=== PATIENT | male | born 1965 | race Caucasian/White ===

== ENCOUNTER 2019-08-08 09:57 | Emergency (ER) | payer OTHER, SELFPAY ==
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
[2019-08-08 10:15] VITALS: BP 143/111; PULSE 68; RESP 18; TEMP 36.5; O2SAT 97
[2019-08-08 10:50] VITALS: BP 131/75; PULSE 85; RESP 20; TEMP 36.6; O2SAT 98
== END 2019-08-08 10:56 | disposition home or self-care (01) ==
PROVIDERS: Emergency Provider Emergency Medicine
DX: S60.222A Contusion of left hand, initial encounter (principal); W22.8XXA Striking against or struck by other objects, initial encounter
CPT/HCPCS: 73130; 99283

== ENCOUNTER 2019-11-12 17:37 | Emergency (ER) | payer OTHER, SELFPAY ==
[2019-11-12 18:13] VITALS: BP 132/75; PULSE 79; RESP 20; TEMP 36.7; O2SAT 93
--- NOTE | 2019-11-12 18:26 | ECG_ITS ---
Measurements Intervals Gile Rate: 84 P: 34 SD: 158 QRS: 41 QRSD: 110 T: 49 QT: 410 QTc: 485 Interpretive Statements SINUS RHYTHM ATRIAL PREMATURE COMPLEX DELAYED PRECORDIAL R/S TRANSITION BORDERLINE ECG Electronically Signed On 11-12-2019 18:44:53 CDT by He Peña D.O.
[2019-11-12] MEDS: SODIUM CHLORIDE 0.9% IV 1,000 ML 999 ML IV CONT (18:35)
--- NOTE | 2019-11-12 18:39 | ED.GENADULT ---
HPI - General Adult General Chief complaint: Syncope Stated complaint: passed out, hit head Source: patient Mode of arrival: ambulatory Limitations: no limitations History of Present Illness HPI narrative: Konstantin is a 54M with a PMH of MS, HTN and HLD that presented to the ED after and episode of syncope. He was working in the barn when he cut himself. The sight of blood made him woozy so he sat down for a few minutes. However, when he got back up he stood up to fast, became lightheaded and passed out. He hit his head when he fell over. He does not believe he was out very long, maybe a minute. He had a small laceration to the back of the head but no other injuries. He had no neck pain, pain in the head away from the small laceration, no AMS, vision changes, nausea or vomiting. He also reported that he had been working all afternoon and evening in the barn and did not drink any water. In addition he has passed out from the sight of blood before. He denies any CP, SOB or activity before the syncope. Related Data Home Medications Medication Instructions Recorded Confirmed baclofen 10 mg PO DAILY 08/08/19 11/12/19 bupropion HCl 450 mg PO BID 08/08/19 11/12/19 duloxetine [Cymbalta] 60 mg PO DAILY 08/08/19 11/12/19 hydrochlorothiazide 25 mg PO DAILY 08/08/19 11/12/19 losartan 25 mg PO DAILY 08/08/19 11/12/19 multivitamin with minerals [Daily 1 tablet PO DAILY 08/08/19 11/12/19 Multivitamin-Minerals] cholecalciferol (vitamin D3) 125 mcg PO DAILY 11/12/19 11/12/19 lorazepam 0.5 mg PO TID PRN 11/12/19 11/12/19 mecobalamin (vitamin B12) 1,000 mcg PO DAILY 11/12/19 11/12/19 modafinil 100 mg PO BID 11/12/19 11/12/19 pravastatin 20 mg PO DAILY 11/12/19 11/12/19 rituximab [Rituxan] 1,000 mg IV [id number] 11/12/19 11/12/19 Allergies Allergy/AdvReac Type Severity Reaction Status Date / Time No Known Allergies Allergy Verified 11/12/19 18:21 Review of Systems Constitutional: Constitutional: Denies chills, Denies fever(s) and Denies weakness Eyes: Eyes: Reports no additional eye complaints ENT: Comments: Small head laceration Cardiovascular: Cardiovascular: Reports as per HPI Respiratory: Respiratory: Reports no additional respiratory complaints Gastrointestinal: Gastrointestinal: Reports no additional gastrointestinal complaints Genitourinary: Genitourinary: Reports no additional male genitourinary complaints Musculoskeletal: Musculoskeletal: Reports no additional musculoskeletal complaints Integumentary/Breasts: Skin/Breast: Reports system reviewed and no additional complaints, except as docu Neurologic: Reports as per HPI Psychiatric: Psychiatric: Reports no additional psychiatric complaints Endocrine: Endocrine: Reports no additional endocrine complaints Hematologic/Lymphatic: Hematologic/Lymphatic: Reports no additional hematologic/lymphatic complaints Allergic/Immunologic: Allergic/Immunologic: Reports no additional allergic/immunologic complaints [facility] Past Medical History Medical History Depression Hypertension Multiple sclerosis Muscle spasm Surgical History Surgical History History of ankle surgery bilateral x3 History of appendectomy History of carpal tunnel surgery bilateral S/P total knee arthroplasty left Tibia/fibula fracture at x3 Social History Social History Smoking packs per day: 1 Smoking cigarettes per day: 20.0 Smoking status: Current every day smoker Tobacco type: cigarettes Substance use: current Substance use type: marijuana Gender identity (if verbalized by the patient): Male Exam Const: General: no acute distress and alert Orientation/consciousness: patient oriented x3 Limitations: No altered mental status HENMT: Other: Had a small very shallow laceration on the top of his scalp that was he
[2019-11-12 18:44] LABS: Basophils Absolute Auto 0.04 K/mm3 (0.00-0.10); Basophils Percent Auto 0.3 % (0.0-1.0); Eosinophils Absolute Auto 0.06 K/mm3 (0.02-0.50); Eosinophils Percent Auto 0.5 % (1.0-6.0); Hematocrit 45.1 % (40.0-54.0); Immature Granulocyte Absolute 0.07 K/mm3 (0.00-0.00); Immature Granulocyte Percent A 0.6 % (0.0-0.0); Lymphocytes Absolute Auto 1.28 K/mm3 (1.10-4.50); Lymphocytes Percent Auto 10.4 % (18.0-42.0); Mean Corpuscular HGB Conc 33.3 g/dL (32.0-36.0); Mean Corpuscular Hemoglobin 29.5 pg (27.0-31.0); Mean Corpuscular Volume 88.8 fL (78.0-102.0); Mean Platelet Volume 9.6 fl (8.7-11.0); Monocytes Absolute Auto 0.88 K/mm3 (0.10-0.90); Monocytes Percent Auto 7.1 % (2.0-11.0); Neutrophils Percent Auto 81.1 % (50.0-70.0); Platelet Count Result 315 K/mm3 (150-420); Red Blood Count 5.08 M/mm3 (4.70-6.10); Red Cell Distribution Width 13.2 % (11.6-14.4); White Blood Count 12.4 K/mm3 (4.8-10.8)
[2019-11-12 18:57] LABS: Alanine Aminotransferase 33 U/L (16-63); Albumin Level 4.3 g/dL (3.4-5.0); Alkaline Phosphatase 108 U/L (46-116); Anion Gap 10 mmol/L (8-16); Aspartate Amino Transferase 18 U/L (15-37); Bilirubin,Total 0.4 mg/dL (0.00-1.00); Blood Urea Nitrogen 12 mg/dL (7-18); Calcium 9.1 mg/dL (8.5-10.1); Carbon Dioxide 28 mmol/L (21-32); Chloride 102 mmol/L (98-108); Estimated CRCL calculation 94 ml/min; Estimated Glomerular Filt Rate > 60; Glucose 93 mg/dL (70-99); Osmolality Calculated 289 mOsm/kg (285-295); Potassium 3.6 mmol/L (3.5-5.1); Sodium 140 mmol/L (136-145); Total Protein 7.4 g/dL (6.4-8.2)
[2019-11-12 19:36] VITALS: BP 115/62; PULSE 80
[2019-11-12 19:37] VITALS: BP 139/69; PULSE 85
[2019-11-12 19:38] VITALS: BP 139/69; BP 147/95; PULSE 85; PULSE 88
== END 2019-11-12 20:10 | disposition home or self-care (01) ==
PROVIDERS: Emergency Provider Family Medicine
DX: R55 Syncope and collapse (principal)
CPT/HCPCS: 36415; 80053; 85025; 93005; 96360; 99283; J7030

== ENCOUNTER 2020-08-16 15:54 | Emergency (ER) | payer OTHER, SELFPAY ==
--- NOTE | ~2020-08-16 | XR_ITS ---
EXAMINATION: XR forearm LT 2V, XR wrist LT 2V EXAM DATE: 08/16/2020 16:40 (accession [id number]), 08/16/2020 16:41 (accession [id number]) INDICATION: Fall, wrist and left forearm pain, history of break 10 years old. Initial encounter. TECHNIQUE: Frontal and lateral projections of the left wrist. Frontal and lateral projections left forearm. There are no prior studies for comparison. FINDINGS: There are no acute fractures or dislocations identified. There is no subcutaneous gas. Th ere may be swelling over the posterior aspect of the forearm. No evidence of elbow joint effusion. T here are no radiopaque foreign bodies. IMPRESSION: 1. Left wrist, forearm exam without acute osseous findings. Reviewed, dictated and finalized at location A. IMPRESSION: 1. Left wrist, forearm exam without acute osseous findings.
[2020-08-16 16:05] VITALS: BP 138/88; PULSE 107; RESP 17; TEMP 37.2; O2SAT 96
[2020-08-16] MEDS: KETOROLAC (*BKC) 60 MG/2 ML VIAL IM (16:38)
--- NOTE | 2020-08-16 16:58 | ED.EXTPRO ---
HPI - Extremity Problem General Chief complaint: Extremity Problem,Nontraumatic Stated complaint: L Arm pain Source: patient Mode of arrival: ambulatory Limitations: no limitations History of Present Illness HPI Narrative: this 55-year-old gentleman presents after he was working on his wheel cleaner and tripped and fell on his outstretched left wrist and arm causing pain with some mild swelling with decreased range of motion in his wrist with radiation into his mid left forearm with no numbness or tingling in his fingers able to move his fingers and has a strong brisk radial pulse on the left, pain rates as 6/10. Complaint: extremity pain Onset (ago): hour(s) Pain Consistency: constant Location: left Severity scale (1-10): 6 Quality: aching Radiation: distal Relieving factors: immobilization Exacerbating factors: range of motion Associated symptoms: denies other symptoms Related Data Home Medications Medication Instructions Recorded Confirmed bupropion HCl 450 mg PO BID 08/08/19 08/16/20 duloxetine [Cymbalta] 60 mg PO DAILY 08/08/19 08/16/20 hydrochlorothiazide 25 mg PO DAILY 08/08/19 08/16/20 losartan 25 mg PO DAILY 08/08/19 08/16/20 cholecalciferol (vitamin D3) 125 mcg PO DAILY 11/12/19 08/16/20 lorazepam 0.5 mg PO TID PRN 11/12/19 08/16/20 mecobalamin (vitamin B12) 1,000 mcg PO DAILY 11/12/19 08/16/20 modafinil 100 mg PO BID 11/12/19 08/16/20 pravastatin 20 mg PO DAILY 11/12/19 08/16/20 rituximab [Rituxan] 1,000 mg IV [id number] 11/12/19 08/16/20 gabapentin 300 mg PO TID 08/16/20 08/16/20 Allergies Allergy/AdvReac Type Severity Reaction Status Date / Time No Known Allergies Allergy Verified 11/19/19 08:09 Review of Systems Review of Systems: All systems reviewed & are unremarkable except as noted in HPI and below PMFSH Past Medical History Medical History Depression Hypertension Multiple sclerosis Muscle spasm Surgical History Surgical History History of ankle surgery bilateral x3 History of appendectomy History of carpal tunnel surgery bilateral S/P total knee arthroplasty left Tibia/fibula fracture at x3 Family History Family History Father Family history of heart disease in male family member before age 55 Other Cerebrovascular accident Diabetes mellitus Family history of arthritis Family history of cardiovascular disease Family history of kidney disease Family history of malignant neoplasm Social History Social History Smoking packs per day: 1 Smoking cigarettes per day: 20.0 Smoking status: Current every day smoker Tobacco type: cigarettes Alcohol intake: current Substance use: current Substance use type: marijuana Gender identity (if verbalized by the patient): Male Exam Const: General: no acute distress Orientation/consciousness: patient oriented x3 HENMT: Head: normal to inspection and contusion Eyes: Conjunctivae: conjunctivae normal Pupils: Equal, round and reactive pupils present Chest: Chest palpation & inspection: normal inspection of the chest Resp: Effort & Inspection: normal respiratory effort Auscultation: clear to auscultation bilaterally Cardio: Rate: regular rate Rhythm: regular rhythm GI: GI Palp: Yes Soft to palpation Back/Spine/Pelvis: Back: no CVA tenderness Neuro: General: patient oriented x3 and moves all extremities Extrem: Other: Pain in his left wrist and forearm with mild swelling and decreased range of motion secondary to pain Psych: Mental Status: mental status grossly normal Affect: normal affect Course Course Emergency Course: x-rays reviewed with patient pain leave level has improved with Toradol and will apply Willi wrap. Vital Signs Vital signs: Vital Signs Temperature 37.2 C
[2020-08-16 17:10] VITALS: RESP 17
== END 2020-08-16 17:10 | disposition home or self-care (01) ==
PROVIDERS: Emergency Provider Emergency Medicine
DX: S63.502A Unspecified sprain of left wrist, initial encounter (principal); W22.8XXA Striking against or struck by other objects, initial encounter
CPT/HCPCS: 73090; 73100; 96372; 99283; J1885

== ENCOUNTER 2022-10-10 00:03 | Emergency (ER) | payer OTHER, SELFPAY ==
--- NOTE | ~2022-10-10 | CT_ITS ---
CT of the Abdomen and Pelvis: Indication: Abdominal pain Technique: 2.5 mm axial scans were obtained through the abdomen and pelvis following intravenous adm inistration of 100 cc of Omnipaque 350. Dose reduction technique was used on this scan by utilizing a utomated exposure control and iterative reconstruction technique. The dose-length product (DLP) was 1 375.21 mGy-cm. COMPARISON: 05/13/2015 Findings: Scans through the lung bases are unremarkable. The liver, spleen, pancreas, gallbladder, adrenals and left kidney are within normal limits. There ar e atherosclerotic calcifications of the aorta. There is a 4 mm stone in the distal right ureter, wit h minimal right hydroureteronephrosis. Additional punctate nonobstructing right renal stone present. No lymphadenopathy. No bowel obstruction or bowel wall thickening. There is no evidence to suggest acute appendicitis. Images through the pelvis were performed. Urinary bladder unremarkable. Prostate gland and seminal ve sicles are unremarkable. No ascites. Impression: 4 mm distal right ureteral stone with minimal right hydroureteronephrosis. Additional punctate nonobstructing right renal stone. Reviewed, dictated and finalized at location M. Impression: 4 mm distal right ureteral stone with minimal right hydroureteronephrosis. Additional punctate nonobstructing right renal stone.
[2022-10-10 00:06] VITALS: BP 140/89; PULSE 90; RESP 20; TEMP 36.6; O2SAT 98
[2022-10-10] MEDS: ONDANSETRON INJ 4 MG/2 ML VIAL IV PUSH (00:10)
[2022-10-10] MEDS: fentaNYL CITRATE INJ (*CRX) 100 MCG/2 ML VIAL IV PUSH (00:10)
[2022-10-10] MEDS: SODIUM CHLORIDE 0.9% IV 1,000 ML 250 ML IV CONT (00:10)
--- NOTE | 2022-10-10 00:13 | ED.MALEGU ---
HPI - Male Genitourinary General Chief complaint: Unspecified Stated complaint: Kidney Stones Source: patient Mode of arrival: ambulatory Limitations: no limitations History of Present Illness HPI Narrative: 57 year old male presents to the Emergency Department complaining of possible kidney stone. States he has had one kidney stone in the past, which was several years ago, and feel same. States began a week ago with root beer urine. States cleared up, but has been intermittent. Has had again today and now right lower flank pain. Vomiting. Onset (ago): week(s) (1) Duration: intermittent Location: right flank Severity: moderate Relieving factors: none Exacerbating factors: none Associated symptoms: Reports blood in urine and nausea/vomiting Related Data Home Medications Medication Instructions Recorded Confirmed bupropion HCl 450 mg 24 hr tablet, 450 mg PO BID 08/08/19 08/16/20 extended release duloxetine 30 mg capsule,delayed 60 mg PO DAILY 08/08/19 08/16/20 release (Cymbalta) hydrochlorothiazide 12.5 mg tablet 25 mg PO DAILY 08/08/19 08/16/20 losartan 25 mg tablet 25 mg PO DAILY 08/08/19 08/16/20 cholecalciferol (vitamin D3) 125 125 mcg PO DAILY 11/12/19 08/16/20 mcg (5,000 unit) capsule lorazepam 0.5 mg tablet 0.5 mg PO TID PRN Anxiety 11/12/19 08/16/20 mecobalamin (vitamin B12) 1,000 1,000 mcg PO DAILY 11/12/19 08/16/20 mcg chewable tablet modafinil 100 mg tablet 100 mg PO BID 11/12/19 08/16/20 pravastatin 20 mg tablet 20 mg PO DAILY 11/12/19 08/16/20 rituximab 10 mg/mL 1,000 mg IV [id number] 11/12/19 08/16/20 concentrate,intravenous (Rituxan) gabapentin 300 mg tablet 300 mg PO TID 08/16/20 08/16/20 Allergies Allergy/AdvReac Type Severity Reaction Status Date / Time No Known Allergies Allergy Verified 11/19/19 08:09 Review of Systems Review of Systems: All systems reviewed & are unremarkable except as noted in HPI and below Constitutional: Constitutional: Reports as per HPI, Reports no additional constitutional complaints, Denies chills and Denies fever(s) Eyes: Eyes: Reports as per HPI and Reports no additional eye complaints ENT: Reports system reviewed and no additional complaints, except as documented Cardiovascular: Cardiovascular: Reports as per HPI, Reports no additional cardiovascular complaints and Denies chest pain Respiratory: Respiratory: Reports as per HPI, Reports no additional respiratory complaints and Denies dyspnea Gastrointestinal: Gastrointestinal: Reports as per HPI, Reports no additional gastrointestinal complaints and Reports abdominal pain (right suprapubic) Genitourinary: Genitourinary: Reports no additional male genitourinary complaints, Reports as per HPI and Reports hematuria Musculoskeletal: Musculoskeletal: Reports no additional musculoskeletal complaints Integumentary/Breasts: Skin/Breast: Reports system reviewed and no additional complaints, except as docu Neurologic: Reports system reviewed and no additional complaints, except as documented Psychiatric: Psychiatric: Reports no additional psychiatric complaints Endocrine: Endocrine: Reports no additional endocrine complaints Hematologic/Lymphatic: Hematologic/Lymphatic: Reports no additional hematologic/lymphatic complaints Allergic/Immunologic: Allergic/Immunologic: Reports no additional allergic/immunologic complaints PMFSH Past Medical History Medical History Depression Hypertension Multiple sclerosis Muscle spasm Surgical History Surgical History History of ankle surgery bilateral x3 History of appendectomy History of carpal tunnel surgery bilateral S/P total knee arthroplasty left Tibia/fibula fracture at x3 Family History Family History Father Family history of heart disease in male family member before age 55 Other
[2022-10-10 00:45] LABS: Basophils Absolute Auto 0.05 K/mm3 (0.00-0.10); Basophils Percent Auto 0.4 % (0.0-1.0); Eosinophils Absolute Auto 0.08 K/mm3 (0.02-0.50); Eosinophils Percent Auto 0.6 % (1.0-6.0); Hematocrit 47.2 % (40.0-54.0); Hemoglobin 15.8 g/dL (14.0-18.0); Immature Granulocyte Percent A 0.7 % (0.0-0.0); Lymphocytes Absolute Auto 1.59 K/mm3 (1.10-4.50); Lymphocytes Percent Auto 11.2 % (18.0-42.0); Mean Corpuscular HGB Conc 33.5 g/dL (32.0-36.0); Mean Corpuscular Hemoglobin 29.3 pg (27.0-31.0); Mean Corpuscular Volume 87.4 fL (78.0-102.0); Mean Platelet Volume 9.8 fl (8.7-11.0); Monocytes Percent Auto 6.4 % (2.0-11.0); Neutrophils Absolute Auto 11.4 K/mm3 (1.7-7.2); Neutrophils Percent Auto 80.7 % (50.0-70.0); Platelet Count Result 386 K/mm3 (150-420); Red Cell Distribution Width 13.2 % (11.6-14.4); White Blood Count 14.1 K/mm3 (4.8-10.8)
[2022-10-10 00:48] LABS: Appearance Urine Clear (Clear); Bilirubin Urine Negative (Negative); Blood Urine 3+ (Negative); Color Urine Light Yellow (Yellow); Glucose Urine UA Negative (Negative); Ketones Urine Trace (Negative); Leukocyte Esterase Ur Negative (Negative); Nitrate Urine Negative (Negative); Protein Urine Trace (Negative); Urobilinogen Urine 0.2 mg/dL (0.2-1.0); pH Urine 6.5 (5.0-8.0)
[2022-10-10 00:54] LABS: Add Urine Microscopic? YES; Bacteria Urine Trace /hpf; Mucus Urine Few /lpf; RBC Urine >75 /hpf (0-2); Squamous Epithelial Cell Urine None seen /hpf (Few); WBC Urine 0-3 /hpf (0-3)
[2022-10-10 01:00] VITALS: BP 142/80; PULSE 80; RESP 20; O2SAT 96
[2022-10-10 01:00] LABS: Alanine Aminotransferase 29 U/L (16-63); Albumin Level 4.1 g/dL (3.4-5.0); Alkaline Phosphatase 138 U/L (46-116); Anion Gap 8 mmol/L (8-16); Aspartate Amino Transferase 15 U/L (15-37); Bilirubin,Total 0.5 mg/dL (0.00-1.00); Blood Urea Nitrogen 21 mg/dL (7-18); Calcium 9.5 mg/dL (8.5-10.1); Carbon Dioxide 31 mmol/L (21-32); Chloride 102 mmol/L (98-108); Estimated CRCL calculation 74 ml/min; Estimated Glomerular Filt Rate 57; Glucose 137 mg/dL (70-99); Osmolality Calculated 297 mOsm/kg (285-295); Potassium 3.8 mmol/L (3.5-5.1); Sodium 141 mmol/L (136-145); Total Protein 7.5 g/dL (6.4-8.2)
[2022-10-10] MEDS: NITROFURANTOIN MONOHYD MACROCR 100 MG CAP PO (01:48)
[2022-10-10] MEDS: TAMSULOSIN HCL 0.4 MG CAPSULE PO (01:48)
[2022-10-10] MEDS: HYDROcodone/acetaminophen (*CRX) 10-325 MG TABLET 1 TAB PO (01:48)
[2022-10-10 02:01] VITALS: BP 138/90; PULSE 78; RESP 20; O2SAT 97
[2022-10-10 02:30] VITALS: BP 138/90; PULSE 78; RESP 20; TEMP 36.6; O2SAT 99
== END 2022-10-10 02:39 | disposition home or self-care (01) ==
PROVIDERS: Emergency Provider Emergency Medicine
DX: N20.1 Calculus of ureter (principal); N13.30 Unspecified hydronephrosis; I10 Essential (primary) hypertension; I05.0 Rheumatic mitral stenosis; F17.200 Nicotine dependence, unspecified, uncomplicated
CPT/HCPCS: 36415; 74177; 80053; 81001; 85025; 96361; 96374; 96375; 99284; A9270; J2405; J3010; J7030; Q9967

== ENCOUNTER 2022-10-19 09:17 | Emergency (ER) | payer OTHER, SELFPAY ==
--- NOTE | ~2022-10-19 | CT_ITS ---
EXAMINATION: CT abdomen pelvis wo con DATE: 10/19/2022 10:04 INDICATION: Right flank pain TECHNIQUE: Computed tomography (CT) of the abdomen and pelvis was performed without intravenous contr ast. The dose-length product (DLP) was 865.16 mGy-cm. Automated exposure control and iterative recons truction technique were employed. COMPARISON: 10/10/2022 FINDINGS: The lung bases are clear. The heart size is normal. Punctate calcifications of the liver an d spleen are consistent with old granulomatous disease. There is a 4 mm cyst of the left hepatic lobe . The pancreas, gallbladder, and adrenal glands are normal. There is a persistent 4 mm stone of the d istal right ureter causing moderate right hydroureteronephrosis. There is a 2 mm nonobstructing stone of the right kidney. The left kidney is unremarkable. No pathologically enlarged abdominal or pelvic lymph nodes are identified. There is calcified atherosclerosis of the aorta and many of the other ar teries. No free intraperitoneal gas or evidence of bowel obstruction. There are bilateral extrarenal hernias containing fat. There is mild lumbar spondylosis. IMPRESSION: 1. Persistent 4 mm stone of the distal right ureter causing moderate hydroureteronephrosis. 2. Nonobstructing right nephrolithiasis. Reviewed, dictated and finalized at location L. IMPRESSION: 1. Persistent 4 mm stone of the distal right ureter causing moderate hydrourete ronephrosis. 2. Nonobstructing right nephrolithiasis.
[2022-10-19 09:25] VITALS: BP 181/101; PULSE 66; RESP 20; TEMP 35.7; O2SAT 99
[2022-10-19 09:51] LABS: Basophils Absolute Auto 0.05 K/mm3 (0.00-0.10); Basophils Percent Auto 0.3 % (0.0-1.0); Eosinophils Absolute Auto 0.05 K/mm3 (0.02-0.50); Eosinophils Percent Auto 0.3 % (1.0-6.0); Hematocrit 46.9 % (40.0-54.0); Hemoglobin 15.6 g/dL (14.0-18.0); Immature Granulocyte Percent A 0.7 % (0.0-0.0); Lymphocytes Absolute Auto 1.12 K/mm3 (1.10-4.50); Lymphocytes Percent Auto 7.3 % (18.0-42.0); Mean Corpuscular HGB Conc 33.3 g/dL (32.0-36.0); Mean Corpuscular Hemoglobin 29.5 pg (27.0-31.0); Mean Corpuscular Volume 88.7 fL (78.0-102.0); Mean Platelet Volume 9.7 fl (8.7-11.0); Monocytes Absolute Auto 0.88 K/mm3 (0.10-0.90); Monocytes Percent Auto 5.7 % (2.0-11.0); Neutrophils Absolute Auto 13.1 K/mm3 (1.7-7.2); Neutrophils Percent Auto 85.7 % (50.0-70.0); Platelet Count Result 368 K/mm3 (150-420); Red Blood Count 5.29 M/mm3 (4.70-6.10); Red Cell Distribution Width 13.2 % (11.6-14.4); White Blood Count 15.3 K/mm3 (4.8-10.8)
[2022-10-19 09:52] LABS: Bilirubin Urine Negative (Negative); Blood Urine 3+ (Negative); Glucose Urine UA Negative (Negative); Ketones Urine Negative (Negative); Leukocyte Esterase Ur Trace LEU/UL (Negative); Nitrate Urine Negative (Negative); Protein Urine 1+ (Negative); Specific Grav Ur 1.025 (1.010-1.020); Urobilinogen Urine 0.2 mg/dL (0.2-1.0)
[2022-10-19 09:56] LABS: Add Urine Microscopic? YES
[2022-10-19 09:57] LABS: Appearance Urine Slightly Cloudy (Clear); Bacteria Urine 1+ /hpf; Color Urine Amber (Yellow); RBC Urine >75 /hpf (0-2); Squamous Epithelial Cell Urine Rare /hpf (Few); WBC Urine 0-3 /hpf (0-3)
[2022-10-19 10:08] LABS: Alanine Aminotransferase 34 U/L (16-63); Albumin Level 3.8 g/dL (3.4-5.0); Alkaline Phosphatase 124 U/L (46-116); Anion Gap 10 mmol/L (8-16); Aspartate Amino Transferase 21 U/L (15-37); Bilirubin,Total 0.3 mg/dL (0.00-1.00); Blood Urea Nitrogen 16 mg/dL (7-18); Calcium 9.5 mg/dL (8.5-10.1); Carbon Dioxide 26 mmol/L (21-32); Chloride 104 mmol/L (98-108); Estimated CRCL calculation 81 ml/min; Estimated Glomerular Filt Rate > 60; Glucose 119 mg/dL (70-99); Lipase 43 U/L (16-77); Osmolality Calculated 292 mOsm/kg (285-295); Potassium 3.8 mmol/L (3.5-5.1); Sodium 140 mmol/L (136-145); Total Protein 7.3 g/dL (6.4-8.2)
[2022-10-19] MEDS: ONDANSETRON INJ 4 MG/2 ML VIAL IV PUSH (10:14)
[2022-10-19] MEDS: SODIUM CHLORIDE 0.9% IV 1,000 ML 999 ML IV CONT (10:14)
[2022-10-19] MEDS: KETOROLAC 30 MG/ML VIAL (*BKC) IV PUSH (10:14)
--- NOTE | 2022-10-19 10:18 | ED.BACK ---
HPI - Back Pain/Injury General Chief Complaint: Urogenital-Male Stated Complaint: kidney stone Time Seen by Provider: 10/19/22 09:19 Source: patient Mode of arrival: ambulatory Limitations: no limitations History of Present Illness HPI Narrative: This is a 57-year-old male that presents with right flank pain, the patient was in the emergency department about a week ago and had a scan that revealed a 3 to 4 mm right ureter stone with moderate hydronephrosis, the patient symptoms had improved after he went home and did not follow up with his primary care physician. Pain in his right flank started again earlier this morning that he rates about a 7/10 right flank pain with no radiation with some hematuria and some nausea with no chest pain no shortness of breath. MD elicited complaint: back pain Pertinent past history: prior back pain and kidney stones Onset (ago): hour(s) Timing: constant Severity: moderate Pain scale (0-10): 7 Quality: dull and aching Location: right flank Radiation: none Exacerbating factors: none Relieving factors: none Related Data Home Medications Medication Instructions Recorded Confirmed bupropion HCl 450 mg 24 hr tablet, 450 mg PO BID 08/08/19 10/19/22 extended release duloxetine 30 mg capsule,delayed 60 mg PO DAILY 08/08/19 10/19/22 release (Cymbalta) hydrochlorothiazide 12.5 mg tablet 25 mg PO DAILY 08/08/19 10/19/22 losartan 25 mg tablet 25 mg PO DAILY 08/08/19 10/19/22 cholecalciferol (vitamin D3) 125 125 mcg PO DAILY 11/12/19 10/19/22 mcg (5,000 unit) capsule lorazepam 0.5 mg tablet 0.5 mg PO TID PRN Anxiety 11/12/19 10/19/22 mecobalamin (vitamin B12) 1,000 1,000 mcg PO DAILY 11/12/19 10/19/22 mcg chewable tablet modafinil 100 mg tablet 100 mg PO BID 11/12/19 10/19/22 pravastatin 20 mg tablet 20 mg PO DAILY 11/12/19 10/19/22 rituximab 10 mg/mL 1,000 mg IV [id number] 11/12/19 10/19/22 concentrate,intravenous (Rituxan) gabapentin 300 mg tablet 300 mg PO TID 08/16/20 10/19/22 Allergies Allergy/AdvReac Type Severity Reaction Status Date / Time No Known Allergies Allergy Verified 10/19/22 09:28 Review of Systems Review of Systems: All systems reviewed & are unremarkable except as noted in HPI and below PMFSH Past Medical History Medical History Depression Hypertension Multiple sclerosis Muscle spasm Surgical History Surgical History History of ankle surgery bilateral x3 History of appendectomy History of carpal tunnel surgery bilateral S/P total knee arthroplasty left Tibia/fibula fracture at x3 Family History Family History Father Family history of heart disease in male family member before age 55 Other Cerebrovascular accident Diabetes mellitus Family history of arthritis Family history of cardiovascular disease Family history of kidney disease Family history of malignant neoplasm Social History Social History Smoking packs per day: 1 Smoking cigarettes per day: 20.0 Smoking status: Current every day smoker Tobacco type: cigarettes Alcohol intake: current Substance use: current Substance use type: marijuana Living arrangements: with family Gender identity (if verbalized by the patient): Male Exam Const: General: healthy appearing Nutritional Appearance: well nourished Orientation/consciousness: patient oriented x3 Limitations: no limitations HENMT: Head: normal to inspection Eyes: Conjunctivae: conjunctivae normal Chest: Chest palpation & inspection: normal inspection of the chest Resp: Effort & Inspection: normal respiratory effort Auscultation: clear to auscultation bilaterally Cardio: Rate: regular rate Rhythm: regular rhythm GI: GI Palp: Yes Soft to palpation and Yes Tenderness to pal
[2022-10-19] MEDS: MORPHINE SULFATE (*CRX) 4 MG/ML INJ IV PUSH (10:29)
== END 2022-10-19 11:15 | disposition home or self-care (01) ==
PROVIDERS: Emergency Provider Emergency Medicine
DX: N20.1 Calculus of ureter (principal); I10 Essential (primary) hypertension; F32.A Depression, unspecified; G35 Multiple sclerosis; F17.210 Nicotine dependence, cigarettes, uncomplicated; Z79.899 Other long term (current) drug therapy
CPT/HCPCS: 36415; 74176; 80053; 81001; 83690; 85025; 96361; 96374; 96375; 99284; J1885; J2270; J2405; J7030

== ENCOUNTER 2024-07-19 12:59 | Emergency (ER) | payer OTHER, SELFPAY ==
--- NOTE | ~2024-07-19 | XR_ITS ---
EXAMINATION: XR forearm LT 2V, XR wrist LT min 3V DATE: 07/19/2024 13:30 INDICATION: Left wrist and forearm pain post fall TECHNIQUE: 1. AP an lateral views of the left forearm were obtained. 2. Dorsal palmar, oblique and lateral views of the left wrist were obtained. COMPARISON: Radiographs dated 08/16/2020 FINDINGS: Alignment is normal at the left elbow, wrist and visualized hand. No fractures. 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 Remaining joint spaces are unr emarkable. No elbow joint effusion. There is soft tissue swelling dorsal to the carpus. IMPRESSION: 1. No acute osseous abnormality. Reviewed, dictated and finalized at location A. IMPRESSION: 1. No acute osseous abnormality.
[2024-07-19 13:00] VITALS: BP 151/93; PULSE 103; RESP 16; TEMP 36.6; O2SAT 98
--- NOTE | 2024-07-19 13:01 | ED.UPPEXIN ---
HPI - Extremity Injury (Upper) General Chief Complaint: Extremity Injury, Upper Stated Complaint: left wrist and elbow pain Time Seen by Provider: 07/19/24 13:00 Source: patient Mode of arrival: ambulatory Limitations: no limitations History of Present Illness HPI narrative: 59-year-old male with a history of hypertension, depression MS/ Right hemiplegia on rituximab had an accidental fall 1 week ago. He fell on his left side and put out his left upper extremity to take the fall. He had a history of prior left wrist fracture. He presents to the ED with -- left wrist pain with decreased range of motion -- left proximal forearm pain . No other injuries noted. No head injury. No neck or back pain. MD complaint: injury to: left, arm and forearm Other Extremity Injury: Left: wrist and forearm Other injuries: none Handedness: right Place: home Severity: moderate Relieving factors: immobilization Exacerbating factors: movement of extremity Context: fall Associated symptoms: denies other symptoms Related Data Home Medications ?Medication ?Instructions ?Recorded ?Confirmed ?Last Taken ?Type bupropion HCl 450 mg 24 hr tablet, 450 mg PO BID 08/08/19 10/19/22 11/12/19 History extended release duloxetine 30 mg capsule,delayed 60 mg PO DAILY 08/08/19 10/19/22 11/12/19 History release (Cymbalta) hydrochlorothiazide 12.5 mg tablet 25 mg PO DAILY 08/08/19 10/19/22 11/12/19 History losartan 25 mg tablet 25 mg PO DAILY 08/08/19 10/19/22 11/12/19 History cholecalciferol (vitamin D3) 125 125 mcg PO DAILY 11/12/19 10/19/22 11/12/19 History mcg (5,000 unit) capsule lorazepam 0.5 mg tablet 0.5 mg PO TID PRN Anxiety 11/12/19 10/19/22 Unknown History mecobalamin (vitamin B12) 1,000 1,000 mcg PO DAILY 11/12/19 10/19/22 11/12/19 History mcg chewable tablet modafinil 100 mg tablet 100 mg PO BID 11/12/19 10/19/22 11/12/19 History pravastatin 20 mg tablet 20 mg PO DAILY 11/12/19 10/19/22 11/12/19 History rituximab 10 mg/mL 1,000 mg IV [id number] 11/12/19 10/19/22 Unknown History concentrate,intravenous (Rituxan) gabapentin 300 mg tablet 300 mg PO TID 08/16/20 10/19/22 Unknown History Allergies Allergy/AdvReac Type Severity Reaction Status Date / Time No Known Allergies Allergy Verified 10/19/22 09:28 Review of Systems Review of Systems: All systems reviewed & are unremarkable except as noted in HPI and below Constitutional: Constitutional: Reports as per HPI and Reports no additional constitutional complaints Eyes: Eyes: Reports as per HPI and Reports no additional eye complaints ENT: Reports system reviewed and no additional complaints, except as documented and Reports as per HPI Cardiovascular: Cardiovascular: Reports as per HPI and Reports no additional cardiovascular complaints Respiratory: Respiratory: Reports as per HPI and Reports no additional respiratory complaints Gastrointestinal: Gastrointestinal: Reports as per HPI and Reports no additional gastrointestinal complaints Genitourinary: Genitourinary: Reports no additional male genitourinary complaints and Reports as per HPI Musculoskeletal: Musculoskeletal: Reports no additional musculoskeletal complaints and Reports as per HPI Comments: left forearm/wrist pain Integumentary/Breasts: Comments: no bruising/laceration noted. Neurologic: Reports system reviewed and no additional complaints, except as documented Comments: Right hemiplegia Psychiatric: Psychiatric: Reports no additional psychiatric complaints and Reports as per HPI Endocrine: Endocrine: Reports no additional endocrine complaints and Reports as per HPI Hematologic/Lymphatic: Hematologic/Lymphatic: Reports no additional hematologic/lymphatic complaints and Reports as per HPI Allergic/Immunologic: Allergic/Immunologic: Reports no additional allergic/immunologic complaints and Reports as per HPI PMFSH Past Medical History Medical History Hypertension Muscle spasm Depression Multiple sclerosis Surgical History Surgical History History of appendectomy History of carpal tunnel surgery bilateral Tibia/fibula fracture at x3 History of ankle surgery bilateral x3 S/P total knee arthroplasty left Family History Family History Father Family history of heart disease in male family member before age 55 Other Cerebrovascular accident Diabetes mellitus Family history of arthritis Family history of cardiovascular disease Family history of kidney disease Family history of malignant neoplasm Social History Social History Smoking packs per day: 1 Smoking cigarettes per day: 20.0 Smoking status: Current every day smoker Tobacco type: cigarettes Alcohol intake: current Substance use: current Substance use type: marijuana Living arrangements: with family Gender identity (if verbalized by the patient): Male Exam Narrative: vitals are stable Const: General: healthy appearing and no acute distress Nutritional Appearance: well nourished Orientation/consciousness: patient oriented x3 Limitations: no limitations HENMT: Head: normal to inspection Ears: external ears normal Face/Nose/Sinus: Normal external nose present Face and sinus: normal facial exam Mouth: Yes Normal oral and palatal mucosa present Throat: posterior oropharynx normal Eyes: Conjunctivae: conjunctivae normal Pupils: Equal, round and reactive pupils present EOM: EOMs intact bilaterally Neck: Neck: normal visual inspection, no lymphadenopathy and no meningeal signs Chest: Chest palpation & inspection: normal inspection of the chest Resp: Effort & Inspection: normal respiratory effort Auscultation: diminished lung sounds Cardio: Rate: regular rate Rhythm: regular rhythm GI: GI Palp: Yes Soft to palpation Auscultation: normal bowel sounds Other: no tenderness/ rigidity / rebound. : General: Yes no CVA tenderness Back/Spine/Pelvis: Back: no CVA tenderness Skin: General skin exam: normal color Rashes: no rashes Wounds: no wounds Neuro: General: patient oriented x3, no meningeal signs and no focal motor deficits ( Right hemiplegia) Speech: normal speech Extrem: General: normal to inspection Other: left wrist/ proximal forearm Tenderness. Psych: Mental Status: mental status grossly normal Affect: normal affect Course Course Emergency Course: accidental fall left wrist/ forearm pain-- x-ray was negative for fracture Vital Signs Vital signs: Vital Signs Temperature 36.6 C 07/19/24 13:00 Pulse Rate 103 H 07/19/24 13:00 Respiratory Rate 16 07/19/24 13:00 Blood Pressure 151/93 H 07/19/24 13:00 Pulse Oximetry 98 07/19/24 13:00 Oxygen Delivery Room Air 07/19/24 13:00 Temperature 36.6 C 07/19/24 13:00 Pulse Rate 103 H 07/19/24 13:00 Respiratory Rate 16 07/19/24 13:00 Blood Pressure 151/93 H 07/19/24 13:00 Pulse Oximetry 98 07/19/24 13:00 Oxygen Delivery Room Air 07/19/24 13:00 MDM - Extremity Injury (Upper) MDM Narrative Medical decision making narrative: accidental fall left wrist/ forearm pain Differential Diagnosis Differential diagnosis: Likely sprain and strain of wrist Discharge Plan Discharge Clinical Impression: Musculoskeletal pain Accidental fall Qualifiers: Encounter type: initial encounter Qualified Code(s): W19.XXXA - Unspecified fall, initial encounter Patient Disposition: Home Condition: Stable Instructions: Antibiotic Form, Musculoskeletal Pain (ED), Fall Prevention (ED) Patient Language: Citizen Of [place] Prescriptions: No Action losartan 25 mg Tablet 25 mg PO DAILY duloxetine [Cymbalta] 30 mg Capsule,Delayed Release(Dr/Ec) 60 mg PO DAILY hydrochlorothiazide 12.5 mg Tablet 25 mg PO DAILY bupropion HCl 450 mg Tablet Extended Release 24 Hr 450 mg PO BID lorazepam 0.5 mg Tablet 0.5 mg PO TID PRN (Reason: Anxiety) pravastatin 20 mg Tablet 20 mg PO DAILY Rituxan 10 mg/mL Concentrate 1,000 mg IV [id number] cholecalciferol (vitamin D3) 125 mcg (5,000 unit) Capsule 125 mcg PO DAILY modafinil 100 mg Tablet 100 mg PO BID mecobalamin (vitamin B12) 1,000 mcg Tablet,Chewable 1,000 mcg PO DAILY ondansetron 4 mg tablet,disintegrating 4 mg PO Q6H PRN (Reason: nausea and vomiting) Qty: 10 0RF tamsulosin 0.4 mg capsule 0.4 mg PO DAILY Qty: 7 0RF oxycodone-acetaminophen [Percocet] 5-325 mg tablet 1 tablet PO Q6H PRN (Reason: pain) Qty: 20 0RF nitrofurantoin monohyd/m-cryst [Macrobid] 100 mg capsule 100 mg PO Q12H 7 Days Qty: 14 0RF Rx Instructions: must administer with a meal/food gabapentin 300 mg Tablet 300 mg PO TID Follow-up/Referrals: [facility] [Primary Care Provider] - Time of Disposition: 14:11
--- OUTSIDE RECORDS SUMMARY | 2024-07-19 13:01 | XMS_ITS | Continuity of Care Document ---
Author Organization [facility] Address [address] [place] [address] Phone Care Team Providers Care Home Day Care Provider Name Role Phone Walt Coleman MD Unavailable Unavailable Allergies, Adverse Reactions, Alerts Substance Reaction Status Criticality No Known Allergies Active No Inform ation Medications Medication Instructions Dosage Effective Dates (start - stop) Status Comments Keflex 500 mg capsule take 1 capsule by oral route 1 hour before dental appt, 1 cap 6 hours after dental appt and 1 cap 12 hrs after dental appt - Active Procedures Procedure Date X-ray exam knee, 3 views Global/Postop followup visit X-ray exam knee, 1 or 2 views 7 X-ray exam both knees, standing 017 Office/outpatient visit,[facility] 2016 Advance Directives Directive Yes / No Effective Date File Name No Information Encounters Encounter Description Practice Location Reason(s) For Visit Diagnoses Date Provider Providers Copied on Encounter [facility], [address] [place] [address], [id number], [place] tel:[phone] [facility] No Information 8 Virginia Godoy. [address] [place] [address], [place] [address], [place], [place], [id number] , [place]. tel: [phone] [facility], [address] [place] [address], [id number], tel:[phone] [facility] Left knee (chief complaint) Presence of left artificial knee joint Apr-0 8 Virginia Godoy. [address] [facility], [address], [id number] , [place]. tel: [phone] [facility], [address], [id number], [place] tel:[phone] [facility] Left knee (chief complaint) Presence of left artificial knee joint 8 Virginia Godoy. [address] [facility], [address], [id number] , [place]. tel: [phone] [facility], [address], [id number], [place] [phone] [facility] Unilateral primary osteoarthritis, left knee 7 Virginia Godoy. [address], [id number] , [place]. tel: [phone] Office/outpat ient visit,[facility], [facility], [address], [id number], [place] [phone] [facility] Left knee (chief complaint) Pain in left kneePain in right kneeUnilateral primary osteoarthritis, left knee 7 Virginia Godoy. [address] [facility], [address], [id number] , [place]. tel: [phone] Family History Family Member Type Diagnosis Age At Onset Mother Problem (finding) hypertension Mother Problem (finding) diabetes melli tus in first degree relative Cousin Problem (finding) stroke Father Problem (finding) congenital heart diseas e Cousin Problem (finding) Cancer, unknown Cousin Problem (finding) Renal disease Father Problem (finding) hypertension Mother Problem (finding) Arthritis Payers Payer name Insurance type Covered democrat ID Authoriza tion(s) No Information Social History Type Description Quantity Date Captured Comments Sex Male Smoking Status No Information Chief Complaint And Reason For Visit No Information Reason For Referral Reason For Referral No Information Plan Of Treatment Date Type Action Status Referral Ordered: X-ray exam knee, 3 views LT ordered Referral Ordered: X-ray exam knee, 1 or 2 views RT ordered History Of Present Illness Encounter Date Complaint History Of Prese nt Illness Left knee Patient comes in today for follow up of his left total knee replacement Left knee patient comes in today for follow up of his left total knee replacement Left knee Patient comes in today for left knee pain Functional Status Date Functional Assessmen t No Information Instructions Date Instruction Additional Infor mation No Information Assessments Type Assessment Date No Information Patient Care Teams Name Effective Dates (start - stop) Status Members No Information
--- OUTSIDE RECORDS SUMMARY | 2024-07-19 13:01 | XMS_ITS | Encounter Summary ---
Author Name [facility] ([place] Address [address] [place] [address] Care Team Providers Care [employer] Science Tutor Name Role Phone DELMA DAY Primary Care Provider Unavailab le Selected Encounter This section includes the information on record at [place] for the Encounter. Date/Time Encounter Type Encounter Description Reason Provider Source Nov 05, 2023 11:00 AM OFFICE O/P EST HI 40 MIN NEUROLOGY ICD-10-CM G35 Multiple sclerosis KONSTANTIN WHALEN Encounter Template Text not used by [place] Assessments - Encounter Diagnoses This section includes the primary and secondary diagnoses documented for the Encounter. 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 This section includes future appointments and future orders which are active, pending or scheduled. Future Appointments This section includes appointments that were scheduled to occur 6 months from the date of the Encounter, up to a maximum of 20 appointments. The data comes from all [facility] treatment facilities. Appointment Date/Time Appointment Type Appointme nt Facility Name Mar 20, 2024 09:30 AM AMBULATORY - PSYCHIATRY [facility] Apr 23, 2024 10:00 AM AMBULATORY - MEDICINE [facility] Active, Pending, and Scheduled Orders This section includes a listing of several types of active, pending, and scheduled orders, including clinic medications orders, diagnostic test orders, procedure orders and consult orders; where the start date of the order is 45 days before the date of the Encounter or 45 days after the date of theEncounter. The data comes from all [facility]. Test Date/Time Test Type Test Details Facility Name Sep 28, 2023 12:00 AM Laboratory - Chemi stry Order COMPREHENSIVE METABOLIC PANEL GREEN LI/HEP BLD/PLAS PLASMA [facility] Sep 28, 2023 12:00 AM Laboratory - Chemi stry Order CBC BLOOD [facility] Sep 28, 2023 12:00 AM Laboratory - Chemi stry Order LIPID PANEL (STL) GREEN LI/HEP BLD/PLAS PLASMA SP ONCE [facility] Sep 28, 2023 12:00 AM Laboratory - Chemi stry Order HGA1C BLOOD [facility] Sep 28, 2023 12:00 AM Laboratory - Chemi stry Order URINALYSIS (STL-PB) URINE [facility] Sep 28, 2023 12:00 AM Laboratory - Chemi stry Order PROST. SPECIFIC AG.(PB-STL) GOLD/RED SST SERUM [facility] Sep 28, 2023 12:00 AM Laboratory - Chemi stry Order TSH W/ REFLEX FT4 (STL) GREEN LI-HEP PLASMA [facility] Sep 28, 2023 12:00 AM Laboratory - Chemi stry Order VITAMIN D, 25-HYDROXY GOLD/RED SST SERUM [facility] Sep 28, 2023 12:00 AM Laboratory - Chemi stry Order B12 GOLD/RED SST SERUM [facility] Sep 28, 2023 12:00 AM Laboratory - Chemi stry Order URINE DRUG SCREEN (STL) URINE COLLECTION TUBE [facility] Sep 28, 2023 12:00 AM Laboratory - Chemi stry Order CYSTATIN C EGFR PANELS (STL-PB-MA) GREEN LI/HEP BLD/PLAS PLASMA SP [facility] Sep 28, 2023 12:00 AM Laboratory - Chemi stry Order OCCULT BLOOD FIT X1 SCREEN STOOL FECES SP [facility] Lab Results: +/- 30 days of the encounter This section includes the Chemistry and Hematology Lab Results on record with [facility] for the patient. Radiology Reports and Pathology Reports are provided separately, in subsequent sections. Lab Results This section contains the Chemistry/Hematology Results that were resulted 30 days before or 30 daysafter the date of the Encounter. Date/Time Source Result Type Result - Unit Interpretation Reference Range Specimen Type Comment Nov 05, 2023 12:01 PM [facility] IGG (STL) PLASMA Specimen Type: PLASMA No comment entered. Ordering Provider: KONSTANTIN WHALEN Report Released Date/Time: Nov 05, 2023 11:25 AM Reporting Lab: [facility] [address] [place] [id number] Performing Lab: [address] [id number] IGG (STL) 772 mg/dL [phone] Nov 05, 2023 12:01 PM [facility] CD19, B CELL PANEL BLOOD Specimen Type: BLOOD Comment: CD,19 B CELLS: 0 cells/uL Ordering Provider: KONSTANTIN WHALEN Report Released Date/Time: Nov 05, 2023 11:25 AM Reporting Lab: [facility] [address] [place] [id number] Performing Lab: [facility] [id number] [facility] CD,19 B CELLS(STL) comment {cells}/uL 11 0-660 LYMPHOCYTES-SO 1307 {cells}/uL [id number] CD19 Percentage 0 L 6-29 Vital Signs: All taken on the encounter date This section contains inpatient and outpatient Vital Signs collected on the date of the Encounter. Date/Time Temperature Pulse Blood Pressure Respiratory Rate SP02 Pain Height Weight Body Mass Index Source Nov 05, 2023 12:23 PM 97.8 87 138/89 20 97 [facility] Social History: Smoking Status (Most current) and Tobacco Use (All prior to encounter date) This section includes the most current, and the historical, smoking and tobacco- related health factors from the [place] facility where the Encounter took place. Current Smoking Status This section includes the most current smoking, or tobacco-related health factor, from the [place] facility where the Encounter took place. Date/Time Current Smoking Status Comment Yrn alexis Feb 02, 2016 06:[address] SMOKING [facility] Tobacco Use History This section includes a history of the smoking, or tobacco-related health factors, that were collected on or before the date of the Encounter. The data comes from the [place] facility where the Encounter took place. Date/Time Smoking Status/Tobacco Use Comment F patricia Feb 02, 2016 06:02 PM TOBACCO OFFERED [facility] SMOKING [facility] Radiology Reports: +/- 30 days of the encounter Radiology Reports For cases when an order for radiology services may have been completed prior to the date of the Encounter, the report list includes the Radiology Reports that were completed up to 30 days before dateof the Encounter. For cases when an order for radiology services may have been completed after the date of the Encounter, the report list also includes the Radiology Reports that were completed up to30 days after date of the Encounter. The data comes from all [place] treatment facilities. Date/Time Radiology Report Provider Source Nov 05, 2023 02:04 PM LDCT LUNG CANCER SCREENING-OUTSIDE: KONSTANTIN WALLS [id number] -[id number] M Exm Date: NOV 05, 2023@14:04 Req Phys: DELMA DAY Loc: [facility] 1 PCP (Req'g Loc) Img Loc: [facility] Service: Unknown [address] [address] (Case [id number] COMPLETE) LDCT LUNG CANCER SCREENING-OUTSID(CT Detailed) CPT:77391 Reason for Study: tobacco use Clinical History: You are requesting a low-dose CT for lung cancer screening. THIS IS NOT A SUBSTITUTE OR ALTERNATIVE FOR DIAGNOSTIC CHEST CT! Due to the low-dose, non- contrast protocol employed, abnormalities outside the lungs may be obscured. A normal or probably normal screen does not mean that an individual does not have lung cancer. No scan can exclude the possibility of lung cancer. A request for lung cancer screening should only be made following a process of shared decision-making with the patient regarding the benefits and risks of a screening program. A screening program should be considered an on-going process for as long as the patient remains eligible. The patient must meet appropriate eligibility criteria for lung cancer screening. Please answer the following questions carefully. A TRUE answer to all questions is required for eligibility. Patient is age 50-80? True Patient has 20+ pack-year smoking history? True Patient is current smoker, or has quit within the past 15 years. True Patient does not have a health problem that substantially limits life expectancy, or the ability or willingness to have curative treatment. True Shared decision-making has occurred regarding the benefits and risks of a screening program. True By checking the box below, I agree that I am ordering the Lung Cancer Screening on this outside of the [facility] Lung Cancer Screening Program. Furthermore, I agree to follow the Radiologist's recommendations and I am accepting professional responsibility for the further follow-up and management of the as needed. Yes, I agree to the above statement. Report Status: Verified Date Reported: NOV 06, 2023 Date Verified: NOV 06, 2023 [employer] E-Sig:/ES/Aspen Friedman MD Report: EXAM: LDCT LUNG CANCER SCREENING-OUTSIDE . DATE: 11/05/2023 2:45 PM HISTORY: tobacco use PROTOCOL: Screening protocol, low dose, non-contrast CT chest. Axial reconstruction <= 1 mm slice thickness. Additional coronal and sagittal reconstructions. MIP reconstructions were reviewed. Secondary computer aided detection post-processing used. COMPARISON: None. INDEX LUNG NODULE = N1 Location = Left lower lobe Series = 5 Image = 176 Density = solid Solid diameter = 6.5 mm Volume = mm3 Non-solid diameter = n/a Other characteristics = n/a Change = n/a Comments = adjacent to a vessel on the confounding CAD measurement OTHER NONCALCIFIED NODULES: No other nodules identified EMPHYSEMA: mild OTHER LUNG FINDINGS: None significant. PLEURA: No pleural or pericardial effusion. MEDIASTINUM: No mediastinal or hilar lymphadenopathy. Calcified mediastinal lymph nodes. CORONARY ARTERY CALCIFIED PLAQUE: Arteriosclerosis of the coronary arteries. Ascending aorta within normal limits of size. UPPER ABDOMEN: Limited scan suggests no acute process. BONES AND SOFT TISSUES: Degenerative changes spine. No fracture. OTHER FINDINGS: None significant. Impression: LUNG-RADS [v2022]: 3. LUNG-RADS MODIFIER: None. MANAGEMENT RECOMMENDATION: Six-month follow-up low-dose chest CT OTHER FINDINGS: Old granulomatous changes. Mild emphysema. Mild arteriosclerosis. Note: A negative screening CT does not mean that an individual does not have lung cancer. Primary Interpreting Staff: Aspen Friedman MD, Radiologist ([employer]ater) /[facility] Encounter Notes: All associated encounter notes This section contains the clinical notes associated to the Encounter. Date/Time Encounter Note(s) Provider Source Nov 05, 2023 11:16 AM NEUROLOGY OUTPATIE NT NOTE: LOCAL TITLE: NEUROLOGY OUTPATIENT FOLLOW UP [facility] STANDARD TITLE: NEUROLOGY OUTPATIENT NOTE DATE OF NOTE: NOV 05, 2023@11:16 ENTRY DATE: NOV 05, 2023@11:16:31 AUTHOR: KONSTANTIN WHALEN EXP COSIGNER: URGENCY: STATUS: COMPLETED Patient's identity confirmed by having patient say their name and social security number. TYPE OF ASSESSMENT [x] Follow up Outpatient I saw KONSTANTIN WALLS, a 58 MALE , in the outpatient Neurology clinic today. Provider requesting consult: DELMA DAY Chief Complaint: Prior History and Plan: 04/30/23 ASSESSMENT: KONSTANTIN WALLS is a 58 year old MALE with multiple sclerosis previously on interferons, then Tysabri and now Rituximab who presents for routine follow up. Neurologic exam is notable primarily for Right-sided weakness and gait dysfunction. In my opinion, Mr. Walls is clinically and radiologically stable on Rituxan. PLAN: 1. Continue Rituximab therapy every six months (500 mg IV); next infusion today. 2. Blood work now, specifically Ig levels; will test CD19 as well. 3. Continue Modafinil for fatigue. 4. MRI of the brain with and without contrast now to monitor lesion burden and disease activity. 5. Continue Baclofen for spasticity and Gabapentin as needed for sensory abnormalities. 6. Continue to defer vitamin D supplementation due to renal stones. 7. Vigilance for depression; address mood if changes are more impactful/continuous. 8. Healthy lifestyle, including routine exercise and balanced diet with goal of weight loss. Again, tobacco cessation emphasized. Interval History: Have three grand-daughters now and spends time taking care of them and enjoying time with them. He has to rest beforehand if his grandchildren are coming over. He is staying busy as much as he can, but lately he has had to rest more in between activities. He also says his gait is a bit slower. He also can't stand as long as he used to be able to; his fatigue is faster in onset. He does use his cooling vest. He does have these declines in function prior to his infusions; he is going to have his infusion today. He is down to half a pack of cigarettes and knows he should be quitting. He also acknowledges his weight is too high but it has been stable over time. Past Medical History: 1) Depression 2) Tobacco use comment: 1.5 ppd x 30 yrs. 3) Benign essential hypertension 4) Arthritis comment: right foot, ankle, left knee and lower back 5) Dropfoot comment: rt sided. 6) Multiple sclerosis (MS) relapsing remitting comment: dx 02/2014 7) Renal stone comment: dx 05/13/2015 8) Peripheral neuropathy 9) Vitamin D deficiency 10) Erectile dysfunction 11) Incontinence 12) Recurrent falls 13) Degenerative disc disease 14) Cannabis abuse 15) Long-term current use of drug therapy 16) Inflamed seborrhoeic keratosis Medication: Active Outpatient Medications (including Supplies): Active Outpatient Medications Status ========= 1) BUPROPION HCL 150MG 24HR SA TAB TAKE TWO TABLETS BY ACTIVE MOUTH EVERY MORNING AND TAKE ONE TABLET EVERY EVENING FOR DEPRESSION SWALLOW WHOLE - DO NOT CRUSH OR CHEW. 2) DULOXETINE HCL 30MG EC CAP TAKE THREE CAPSULES BY ACTIVE MOUTH ONCE A DAY FOR DEPRESSION DO NOT ABRUPTLY DISCONTINUE MEDICATION. 3) HYDROCHLOROTHIAZIDE 25MG TAB TAKE ONE TABLET BY MOUTH ACTIVE ONCE A DAY FOR BLOOD PRESSURE 4) LOSARTAN 100MG TAB TAKE ONE-HALF TABLET BY MOUTH ONCE ACTIVE A DAY TO LOWER BLOOD PRESSURE 5) MODAFINIL 200MG TAB TAKE ONE-HALF TABLET BY MOUTH ACTIVE TWICE A DAY FOR DAYTIME SLEEPINESS Active Non-VA Medications Status ========= 1) Non-VA CHOLECALCIF 125MCG (D3-5,000UNIT) CAP 5000UNIT ACTIVE BY MOUTH ONCE A DAY 2) Non-VA CYANOCOBALAMIN 500MCG TAB 500MCG BY MOUTH ONCE ACTIVE A DAY 3) Non-VA HYDROCODONE 7.5/ACETAMINOPHEN 325MG TAB 1 ACTIVE TABLET BY MOUTH EVERY 6 HOURS NEEDED 8 Total Medications Medication Reconciliation Opt STL: I have reviewed the patient's medication list with the patient and/or his/her care-surgery attendant. Any medication discrepancies have been resolved. Patient will be provided with an updated list of his/her medication(s). ALLERGIES: Patient has answered NKA Review of Systems: A 12 point Review of Systems was performed. All systems were negative except as per HPI above. CONSTITUTIONAL: The patient's weight has not changed recently and appetite has been fair. Physical Examination: VITALS: Temperature: 97.8 F [36.6 C] (09/28/2023 14:09) Blood Pressure: 140/90 (09/28/2023 14:17) Pulse: 97 (09/28/2023 14:09) Respirations: 20 (09/28/2023 14:09) Height: 71 in [180.3 cm] (12/11/2018 11:28) Weight: 269 lb [122.02 kg] (09/28/2023 14:09) Neurologic Examination: Aid: Single point cane General appearance: well developed, well nourished, in no acute distress Mental Status: The patient is awake, alert and oriented. Speech is fluent and commands are followed without difficulties. Cranial Nerves: There is no red desaturation. There is no scotoma. Extraocular movements are full. There is no nystagmus. There is no LINDA. There is no dysarthria. Hearing is intact bilaterally. Palate elevates symmetrically. Shoulder shrug is equal. Tongue movements are normal. Motor: Strength in the upper extremities is 5/5 on the Left and 5-/5 on the Right both proximally and distally. There is no drift. Strength in the lower extremities is reduced on the Right: - Hip flexor = 4+/5 - Knee flexor = 4+/5 There is normal tone. Finger tapping is normal bilaterally. Toe tapping is mildly slowed on the Right. There is no postural tremor. There is mild action tremor in the upper extremities bilaterally (high frequency/high amplitude). Sensation: Light touch is intact in the arms and legs. Romberg is positive. Coordination: Aiapqr-emcy-goqhxe is normal bilaterally. Rapid alternating movements are normal bilaterally. Nfmo-atjr-moku is normal bilaterally. Reflexes: Upper extremity reflexes are 2+, more brisk on the Left. Lower extremity reflexes are 2++, more brisk on the Right. Ambulation: Gait and stance are notable for significant antalgia and pelvic tilt on the Right with hyperextension of the Right knee. LAB RESULTS: Comprehensive Metabolic Panel SODIUM 138 mEq/L 04/30/2023 10:41 POTASSIUM 3.7 mEq/L 04/30/2023 10:41 CHLORIDE 101 mEq/L 04/30/2023 10:41 UREA NITROGEN 12.3 mg/dL 04/30/2023 10:41 CREATININE 0.92 mg/dL 04/30/2023 10:41 CALCIUM 10.1 mg/dL 04/30/2023 10:41 PROTEIN 7.4 g/dL 04/30/2023 10:41 ALBUMIN 4.7 g/dL 04/30/2023 10:41 ALKALINE PHOSPHATASE 120 U/L 04/30/2023 10:41 ALT/SGPT 19 U/L 04/30/2023 10:41 AST/SGOT 12 U/L 04/30/2023 10:41 TOTAL BILIRUBIN 0.5 mg/dL 04/30/2023 10:41 CARBON DIOXIDE 28 mEq/L 04/30/2023 10:41 GLUCOSE 105 H mg/dL 04/30/2023 10:41 EGFR (CKD-EPI 2020) 96.4 04/30/2023 10:41 Complete Blood Count WBC: 11.8 10*3/uL H (04/30/23 10:41) RBC: 5.59 10*6/uL (04/30/23 10:41) HGB: HGB 16.3 g/dL 04/30/2023 10:41 HCT: 47.9 % (04/30/23 10:41) PLT: PLT 338 10*3/uL 04/30/2023 10:41 Hepatic function: AST/SGOT 12 U/L 04/30/2023 10:41 ALT/SGPT 19 U/L 04/30/2023 10:41 Coagulation parameters: PT: ____ INR: ____ PTT: No PTT EO data found Lipids: ------ ____ Other pertinent labs HgbA1c: No HEMOGLOBIN A1C EO data found Folate: No FOLATE (STL-AR);FOLATE (PB);FOLATE (DC 11-19);FOLATE (DC 11/19) data found Vitamin D: VITAMIN D, 25-HYDROXY 29.6 L ng/mL 04/30/2023 10:41 B12: No B12 EO data found RF: No data available for: RHEUMATOID FACTOR (STL) YAW:0 RPR: ____ HIV: No HIV Antibody (STL);HIV COMBO (STL-MA) data found HCV: HEP C Ab HCV Ab (STL) NEGATIVE 06/07/2017 08:28 Urine Drug Screen No URINE DRUG SCREEN EO data found Imaging: MRI: Images from brain MRI dated 06/15/23 were personally reviewed. These reveal extensive white matter lesion burden in the cerebrum without evidence of enhancement. ASSESSMENT: KONSTANTIN WALLS is a 58 year old MALE with multiple sclerosis previously on interferons, then Tysabri and now Rituximab who presents for routine follow up. Neurologic exam is notable primarily for Right-sided weakness and gait dysfunction. In my opinion, Mr. Walls is clinically and radiologically stable on Rituxan. PLAN: The following plan was discussed with the patient: 1. Continue Rituximab therapy every six months (500 mg IV); next infusion today. 2. Blood work now, specifically Ig levels; will test CD19 as well. 3. Continue Modafinil for fatigue. 4. MRI of the brain with and without contrast in six months to monitor lesion burden and disease activity. 5. Continue Baclofen for spasticity and Gabapentin as needed for sensory abnormalities. 6. Continue to defer vitamin D supplementation due to renal stones. Checking level today. 7. Vigilance for depression; address mood if changes are more impactful/continuous. 8. Healthy lifestyle, including routine exercise and balanced diet with goal of weight loss. Again, tobacco cessation emphasized to a great extent; patient willing to initiate efforts to limit if not quit cigarettes. Patient to go to ER if new symptoms develop. Patient to call if any questions arise or if patient experiences side effects to any prescribed medication. Patient had opportunity to ask questions, and understood instructions and treatment plan. Time spent on day of service prior to visit reviewing records, imaging, lab data, etc.: 5 minutes Time spent in the visit: 11 to 11:30 I spent a total of 30 minutes with KONSTANTIN WALLS with more than 50% of the time discussing many of the issues related to diagnosis, symptoms and management of neurologic diseases such as multiple sclerosis. Time spent after visit on day of service writing orders, communicating with other healthcare providers, charting the note in the electronic medical record, etc: 10 minutes TOTAL TIME on day of service: 45 minutes /gifty/ Konstantin Whalen MD, PhD Staff Physician - Neurology Signed: 11/05/2023 16:47 Receipt Acknowledged By: 11/06/2023 08:12 /gifty/ DELMA DAY MD STAFF PHYSICIAN KONSTANTIN WHALEN [facility]
--- OUTSIDE RECORDS SUMMARY | 2024-07-19 13:01 | XMS_ITS | Continuity of Care Document ---
Author Organization [facility] Address [address] [place] [address] Phone Care Team Providers Care Geotechnical Engineer Name Role Phone Genevieve Villarreal DPT Unavailable Unavailable Procedures Procedure Date THERAPEUTIC EXERCISES NEUROMUSCULAR RE-ED MANUAL THERAPY FUNC ACTIVITY 15 MIN HOT/COLD PACK ELECTRIC STIMULATION UNATT PT RE-EVALUATION THERAPEUTIC EXERCISES NEUROMUSCULAR RE-ED MANUAL THERAPY FUNC ACTIVITY 15 MIN HOT/COLD PACK ELECTRIC STIMULATION UNATT THERAPEUTIC EXERCISES NEUROMUSCULAR RE-ED FUNC ACTIVITY 15 MIN HOT/COLD PACK ELECTRIC STIMULATION UNA PT EVALUATION THERAPEUTIC EXERCISES ELECTRIC STIMULATION UNATT Advance Directives Directive Yes / No Effective Date File Name No Information Encounters Encounter Description Practice Location Reason(s) For Visit Diagnoses Date Provider Providers Copied on Encounter [facility] [address], [place], [place], [id number], [phone] [place] No Information 3 Phil Vallejo. [address], [address], [place], [address], [place]. tel: [phone] [facility] [address], [place], [place], [id number], [phone] [place] No Information 2 Villarreal Genevieve. [address] [place] [address], [address], [place], [facility], . tel:[phone] Referring Provider: [address], [place], [address]. tel:[phone] [facility] [address] [place], [place] [address] [address], [place], [place], [id number], [phone] [place] No Information 2 Villarreal Genevieve. [address] [place] [address], [address], [facility], . tel:[phone] Referring Provider: [address], [place], [place], [facility]. tel:[phone] [facility] [address] [place] [address], [id number], [phone] [place] No Information 2 Villarreal Genevieve. [address] [place] [address], [address], [facility], . tel:[phone] Referring Provider: [address], [place], [address]. tel:[phone] [facility] [address] [place] [address], [id number], [phone] [place] Pain in joint involving ankle and foot 2 Villarreal Genevieve. [address] [place] [address], [facility] [address], [place], [facility], . tel:[phone] Referring Provider: [address], [place], [address]. tel:[phone] Family History Family Member Type Diagnosis Age At Onset No Information Payers Payer name Insurance type Covered green party ID Authoriza tion(s) No Information Social History Type Description Quantity Date Captured Comments Sex Male Smoking Status No Information Chief Complaint And Reason For Visit No Information Reason For Referral Reason For Referral No Information History Of Present Illness Encounter Date Complaint History Of Prese nt Illness No Information Functional Status Date Functional Assessmen t No Information Instructions Date Instruction Additional Infor mation No Information Assessments Type Assessment Date No Information Patient Care Teams Name Effective Dates (start - stop) Status Members No Information
--- OUTSIDE RECORDS SUMMARY | 2024-07-19 13:01 | XMS_ITS | Encounter Summary ---
Author Name [facility] [facility] [place] Address [address] [place] [address] Care Team Providers Care Flatwork Ironer Name Role Phone DELMA DAY Primary Care Provider Unavailab le Selected Encounter This section includes the information on record at [place] for the Encounter. Date/Time Encounter Type Encounter Description Reason Provider Source Mar 20, 2024 09:30 AM SYNCH AUDIO-ONLY [place] [id number] [facility] ICD-10-CM F33.9 Major depressive disorder, recurrent, unspecified VIVIAN ABDI Sarah Encounter Template Text not used by [place] Assessments - Encounter Diagnoses This section includes the primary and secondary diagnoses documented for the Encounter. Date/Time Primary/Secondary Diagnosis Diagnosis Name Provider Source Mar 20, 2024 10:08 AM PRIMARY Major depressive disorder, recurrent, unspecified VIVIAN ABDI [facility] Mar 20, 2024 10:08 AM SECONDARY Anxiety disorder, unspecified ROBERTWALA,VIVIAN LOU [facility] Plan of Treatment: Future Appointments (+ 6 months) and Future Tests (+/- 45 days) The Plan of Treatment section includes future care activities for the patient from all [place] treatmentfacilities. This section includes future appointments and future orders which are active, pending or scheduled. Future Appointments This section includes appointments that were scheduled to occur 6 months from the date of the Encounter, up to a maximum of 20 appointments. The data comes from all [place] treatment facilities. Appointment Date/Time Appointment Type Appointme nt Facility Name Apr 23, 2024 10:00 AM [facility] May 05, 2024 11:00 AM AMBULATORY - MEDICINE [facility] May 05, 2024 01:30 PM AMBULATORY - MEDICINE [facility] May 06, 2024 11:00 AM AMBULATORY - MEDICINE [facility] May 17, 2024 09:00 AM AMBULATORY - NONE [facility] May 23, 2024 07:30 AM AMBULATORY - NONE [facility] June 16, 2024 11:00 AM AMBULATORY - PSYCHIATRY [facility] July 02, 2024 01:30 PM AMBULATORY - NONE [facility] Sep 15, 2024 09:30 AM AMBULATORY - PSYCHIATRY [facility] Social History: Smoking Status (Most current) and Tobacco Use (All prior to encounter date) This section includes the most current, and the historical, smoking and tobacco- related health factors from the [place] facility where the Encounter took place. Current Smoking Status This section includes the most current smoking, or tobacco-related health factor, from the [place] facility where the Encounter took place. Date/Time Current Smoking Status Comment Yrn ity Mar 20, 2024 09:30 AM VA-TOBACCO USE JULIO RY DAY CIGARETTES [facility] Tobacco Use History This section includes a history of the smoking, or tobacco-related health factors, that were collected on or before the date of the Encounter. The data comes from the [place] facility where the Encounter took place. Date/Time Smoking Status/Tobacco Use Comment F acility Mar 20, 2024 09:30 AM VA-TOBACCO SCREEN FOLLOW-UP [facility] Mar 20, 2024 09:30 AM VA-TOBACCO USE ADVICE [facility] Mar 20, 2024 09:30 AM VA-TOBACCO USE POLL WATCHER NO [facility] Mar 20, 2024 09:30 AM VA-TOBACCO USE JULIO RY DAY CIGARETTES [facility] Mar 20, 2024 09:30 AM VA-TOBACCO USE MED NO [facility] Mar 13, 2023 09:00 AM VA-TOBACCO USE 30 YEARS OR MORE [facility] Mar 13, 2023 09:00 AM VA-TOBACCO USE ADVICE [facility] Mar 13, 2023 09:00 AM VA-TOBACCO USE POLL WATCHER NO [facility] Mar 13, 2023 09:00 AM VA-TOBACCO USE MED NO [facility] Mar 13, 2023 09:00 AM VA-TOBACCO USE WI 30 MIN OF WAKEUP [facility] Mar 13, 2023 09:00 AM VA-TOBACCO USER EVERY DAY [facility] Encounter Notes: All associated encounter notes This section contains the clinical notes associated to the Encounter. Date/Time Encounter Note(s) Provider Source Mar 20, 2024 10:49 AM MENTAL HEALTH NOTE: LOCAL TITLE: [facility] NEEDS ASSESSMENT AND INTERVENTION PLAN STANDARD TITLE: MENTAL HEALTH NOTE DATE OF NOTE: MAR 20, 2024@10:49 ENTRY DATE: MAR 20, 2024@10:49:51 AUTHOR: MACKENZIE AHMADI EXP COSIGNER: URGENCY: STATUS: COMPLETED Initial [facility] Care Coordination Intervention Plan MH Treatment Team: [facility] I[facility] Kn[facility] 2 Abseiling Instructor: MACKENZIE AHMADI Office Phone: [phone] Analog Pager: Digital Pager: Information gathered from: Chart review Care Coordination Needs Assessment Current assessed care coordination needs: No needs beyond point of contact for continuity of care. Follow-up as clinically indicated: Homelessness/Food Insecurity Screen - DI,L,N,P,PH,PS,S,U: In the past 2 months, have you been living in stable housing that you own, rent, or stay in as part of a household? Yes - Living in stable housing. Are you worried or concerned that in the next 2 months you may NOT have stable housing that you own, rent, or stay in as part of a household? No - Not worried about housing near future The reports the following: Within the past 12 months, you worried whether your food would run out before you got money to buy more. Never true Within the past 12 months, the food you bought just didn't last and you didn't have money to get more. Never true Tobacco Use Screening - AT,DE,L,M,N,P,PH,PS,RT,S,U: The patient smokes cigarettes every day. The patient states they have smoked for the following number of years: # of years: 30 Average number of packs/day over the entire time patient smoked: Packs/day: 1 Patient was advised to stop smoking and/or using other tobacco products. Advised patient that a combination of behavioral counseling and FDA-approved cessation medications is the most effective way to ensure their success in stopping to smoke and/or using other tobacco products. The patient was not interested in additional information about behavioral counseling and other support strategies discussed. Informed patient that medications can help with cravings and withdrawal symptoms, and they greatly increase the chances of successfully stopping your tobacco use. The patient was not interested in a prescription for tobacco cessation medications. Sexual Orientation - CP,L,N,P,PH,PS,S,U: The patient thinks of their sexual orientation as: Straight or Heterosexual /ALLI Welch RN Registered Nurse, [facility] Signed: 03/20/2024 10:53 MACKENZIE AHMADI [facility] Mar 20, 2024 10:09 AM ACCOUNTING OF DISCLOSURES NOTE: LOCAL TITLE: STATE PRESCRIPTION DRUG MONITORING PROGRAM STANDARD TITLE: ACCOUNTING OF DISCLOSURES NOTE DATE OF NOTE: MAR 20, 2024@10:09:16 ENTRY DATE: MAR 20, 2024@10:09:16 AUTHOR: VIVIAN ABDI EXP COSIGNER: URGENCY: STATUS: COMPLETED This PDMP query was submitted by Vivian Abdi. The clinical justification for this PDMP query is to review controlled substances prescribed outside of the [place], and any additional information that may become available, as an important component of standard clinical care, and in accordance with [facility] policy. Patient information was shared with the PDMP [place]. No prescription(s) for controlled substances outside the [facility] were found in the last 90 days. /gifty/ VIVIAN ABDI [facility] Signed: 03/20/2024 10:09 VIVIAN ABDI [facility] Mar 20, 2024 09:30 AM PSYCHIATRY NOTE: LOCAL TITLE: PSYCHIATRY [facility] STANDARD TITLE: PSYCHIATRY NOTE DATE OF NOTE: MAR 20, 2024@09:30 ENTRY DATE: MAR 13, 2024@07:38:08 AUTHOR: VIVIAN ABDI EXP COSIGNER: URGENCY: STATUS: COMPLETED [facility] Name..................JUAN CARLOS CID Age...................59 Sex...................MALE SSN................... Service Connection.... Service Connected: NO Rated Disabilities: NONE STATED [place] TELEPHONE CONSENT: Consent: verbally consented to a telephonic follow-up appointment due to technical difficulties with [facility] Location: [address] [place] [address] Phone number: Survey: patient alone Previous psychiatric notes, medical notes, and medication history have been reviewed. This appointment was conducted by phone. SYNOPSIS: Gorge is a vet with PMH of MDD, anxiety, hypertension, multiple sclerosis who initially presented in 2016 for treatment of depression. He followed with Dr. Huston and eventually joined my clinic on 03/20/2024. Relevant Psych Hx: No SA/Psych hosp Substance use: 1 ppd, wants to quit Etoh: rare use Marijuana: daily for anxiety and pain Med trials: Duloxetine: Started in 2015 Bupropion: Started in 2015 Lorazepam: Modafinil: , max dose 200 mg Values/hobbies: INTERVAL HISTORY: HPI: Vet presented on time, alone, and in NAD. Patient was last seen on 03/13/2023 at which time medications were continued. In the interim, the patient stated that he has been doing well outside of recently getting sick. He denied any depression symptoms including feelings of hopelessness, worthlessness, and SI. He shared that I smile a lot these days. He shared that his anxiety has been good, I have some from the multiple sclerosis but it is ok!. He did not report any appetite or sleep changes. The vet reported good compliance to meds. He has had sexual side effects from cymbalta and was wondering if he might be able to decrease the dose given the s sustained improvement in his mood/anxiety. Of note, the did report that he does have some leftover lorazepam from his previous prescriber. He stated he takes his very rarely only in severe panic. He reported he does not need any refills for this at this time. The vet denied any changes in sub use. OBJECTIVE: Problem List: 1) Depression 2) Tobacco use 3) Benign essential hypertension 4) Arthritis 5) Dropfoot 6) Multiple sclerosis (MS) relapsing remitting 7) Renal stone 8) Peripheral neuropathy 9) Vitamin D deficiency 10) Erectile dysfunction 11) Incontinence 12) Recurrent falls 13) Degenerative disc disease 14) Cannabis abuse 15) Long-term current use of drug therapy 16) Inflamed seborrhoeic keratosis Outpatient Medications: Active Outpatient Medications (including Supplies): Active Outpatient Medications Status = 1) BACLOFEN 10MG TAB TAKE ONE TABLET BY MOUTH THREE TIMES A DAY ACTIVE Indication: FOR SPASTICITY 2) BUPROPION HCL 150MG 24HR SA TAB TAKE TWO TABLETS BY MOUTH ACTIVE EVERY MORNING AND TAKE ONE TABLET EVERY EVENING SWALLOW WHOLE - DO NOT CRUSH OR CHEW. Indication: FOR DEPRESSION 3) DULOXETINE HCL 30MG EC CAP TAKE THREE CAPSULES BY MOUTH ONCE ACTIVE A DAY DO NOT ABRUPTLY DISCONTINUE MEDICATION. Indication: FOR DEPRESSION 4) HYDROCHLOROTHIAZIDE 25MG TAB TAKE ONE TABLET BY MOUTH ONCE A ACTIVE DAY FOR BLOOD PRESSURE 5) LOSARTAN 100MG TAB TAKE ONE-HALF TABLET BY MOUTH ONCE A DAY ACTIVE TO LOWER BLOOD PRESSURE Indication: FOR HIGH BLOOD PRESSURE 6) MODAFINIL 200MG TAB TAKE ONE-HALF TABLET BY MOUTH TWICE A ACTIVE DAY Indication: FOR DAYTIME SLEEPINESS Active Non-VA Medications Status = 1) Non-VA CHOLECALCIF 125MCG (D3-5,000UNIT) CAP 5000UNIT BY ACTIVE MOUTH ONCE A DAY 2) Non-VA CYANOCOBALAMIN 500MCG TAB 500MCG BY MOUTH ONCE A DAY ACTIVE 3) Non-VA HYDROCODONE 7.5/ACETAMINOPHEN 325MG TAB 1 TABLET BY ACTIVE MOUTH EVERY 6 HOURS NEEDED 9 Total Medications The medication list has been reviewed. Vital Signs: Height: 71 in [180.3 cm] (12/11/2018 11:28) Weight: 269 lb [122.02 kg] (09/28/2023 14:09) BMI: 37.6 Temperature: 97.8 F [36.6 C] (11/05/2023 12:23) Blood Pressure: 138/89 (11/05/2023 12:23) Pulse: 87 (11/05/2023 12:23) Respirations: 20 (11/05/2023 12:23) Patient Weight History - Last Four 1. 269.0 lbs. / 122.0 kg. on SEP 28, 2023@14:09:41 2. 266.9 lbs. / 121.1 kg. on APR 30, 2023@10:51:53 3. 271.6 lbs. / 123.2 kg. on MAY 08, 2022@09:57:08 4. 269.5 lbs. / 122.2 kg. on OCT 24, 2021@10:54:19 Allergies: Patient has answered NKA Relevant Labs: Complete Blood Count WBC: 11.8 10*3/uL H (04/30/23 10:41) RBC: 5.59 10*6/uL (04/30/23 10:41) HGB: HGB 16.3 g/dL 04/30/2023 10:41 HCT: 47.9 % (04/30/23 10:41) PLT: PLT 338 10*3/uL 04/30/2023 10:41 Comprehensive Metabolic Panel SODIUM 138 mEq/L 04/30/2023 [...] 10:41 EGFR (CKD-EPI 2020) 96.4 04/30/2023 10:41 Coagulation parameters PT: ____ INR: ____ PTT: No PTT EO data found Lipid Panel No LIPID PANEL EO data found HgbA1c: No HEMOGLOBIN A1C EO data found No TSH (2YR) EO data found B12: No B12 EO data found Folate: No FOLATE (STL-MA);FOLATE (PB);FOLATE (DC 11-19);FOLATE (DC 11/19) data found VITAMIN D, 25-HYDROXY 29.6 L ng/mL 04/30/2023 10:41 Urine Drug Screen No data available Physical Exam: General: No acute distress, CV/Resp: No labored breathing through phone Neurological: The patient is awake, alert, and grossly oriented. Mental Status Exam: Behavior: cooperative, friendly Speech: normal rate/rhythm Mood: ok Affect: congruent, euthymic Thought process: linear, goal oriented; no clear delusions voiced Thought content: -SI/HI Cognition: Alert and oriented, memory fair, concentration fair Fund of knowledge: average Insight: fair Judgment: fair Review of systems: Negative except where noted above. SAFETY RISK ASSESSMENT: As noted below, patient has some chronic non-modifiable risk factors and several protective factors as well. Risk factors for suicide: * chronic mental illness * gender * medical comorbidities * access to lethal means (locked, declined gunlocks) * recent psychosocial stressors Protective factors: * denial of suicidal/homicidal ideation * no history of suicide attempts * no inpatient admissions * exhibits future planning * medication compliant * engaged in treatment * access to treatment * future orientation * responsibility towards family * restorationist/spiritual magui History of violence: * none Acute risk of harm to self or others is currently low. Chronic risk of harm to self or others is elevated due to above chronic non-modifiable risk factors. Patient will benefit from ongoing outpatient mental health treatment. Patient has been advised to call [phone] or go to closest ER in the case of a mental health emergency. ASSESSMENT: BUSHONG,JUAN CARLOS ELADIO is a vet with PMH of MDD, anxiety, hypertension, multiple sclerosis who initially presented in 2016 for treatment of depression. He followed with Dr. Huston and eventually joined my clinic on 03/20/2024. Today, the reported overall stability in mood and anxiety. He has noted sexual side effects from Cymbalta and was wondering if he might be able to trial a lower dose at 60 mg. I counseled him to reach out to us if he finds his mood and anxiety to decrease at which time we can certainly go back back up to 90 mg. At his next visit, we can consider continuing to decrease if he continues to have sexual side effects so long as his mental health symptoms remain stable. Regarding his lorazepam, we did discuss the risks of this medication. He stated he does not need refills at this time. We discussed clinic policies surrounding controlled substances and, if the decision is made to continue this medication, the need to follow policies below. Will hold off on refills at this time. DIAGNOSES: # MDD # Anxiety TREATMENT PLAN: # MDD # Anxiety -Continue bupropion 450 mg daily -Continue duloxetine 90 mg (renal functioning wnl) - is using rare 0.5 mg lorazepam from leftover script. He declined refills for now. If we decide to continue this medication on a very rare usage, we will need to complete below policies. If he reaches out between appointments for a refill, okay to do so given continuity of care -Continue Modafinil per neurology recommendations (vet stated this is prescribed by neuro/PCP) due to fatigue 2/2 multiple sclerosis and related treatments, which might also secondarily be helpful for mood # High risk med use If benzos continued: -Continue regular PDMP queries to monitor controlled substance prescriptions -Continue at minimum UDS q1y after baseline. Discussed with patient potential random UDS. Next scheduled due today. Will discuss at next visit if we continue this medication -Yearly FTF appointment. Last FTF >1 year ago. Will have qjvh-[id number] visit at next session in case we continue -Vists no less frequent than q3m -V/s documented every 6-12 months -EKG in future if appropriate -Counseled patient to reach out to clinic atleast a few buisness days before running out of script to ensure timely ordering of new script *A total of 45 min were spent on this encounter, of which approx 20 min were spent in medical decision making* FOLLOW UP: 3 mo SUPPORTIVE PSYCHOTHERAPY/PSYCHOEDUCATION : n/a INSTRUCTIONS GIVEN TO PATIENT/FAMILY *Report medication side effects promptly *No alcohol/illicit drug use with medication *Exercise caution with driving/use of machinery *Monitor for sedation with use of the medication and if needed avoid use in situations where decreased level of alertness could potentially be dangerous *Follow up with Primary Care Provider *If symptoms get worse, call clinic or Emergency Room as appropriate *Provided orientation to the inter-disciplinary team and ways to access crisis/emergency care CONSENT We have discussed alternatives to treatment, including no treatment, as well as risks, benefits, side effects. The patient/guardian understood and consented to treatment provided. The patient is aware to call clinic or the emergency room as appropriate if symptoms get worse or if they experience side effects from medications. After a thorough discussion of risks and benefits, patient and provider jointly agreed on prescribing wellbutrin to address significant mental health symptoms as above. Patient denied any history of seizures, heavy alcohol use, recent head trauma, history of eating disorders. We discussed the risk of side effects, including GI symptoms, headaches, and small risk of seizures. Patient advised to reach out to clinic if they experience any side effects and to go to closest ER or call 911 should they experience a seizure. Patient verbalized understanding and reported no further questions. After a thorough discussion of risks and benefits, patient and provider jointly agreed on prescribing an SSRI/SNRI to address significant mental health symptoms as above. We discussed the risk of side effects, including, but not limited to, GI symptoms, headaches, hyponatremia, sexual dysfunction, serotonin syndrome (when combined with other serotonergic medications such as dextromethorphan, opioids, triptans, zofran, etc). Patient advised to reach out to clinic if they have any side effects and to go to the closest ER or to call [phone] if they have serious side effects such as serotonin syndrome. Patient reported understanding and had no further questions. In case benzodiazepines are continued: Counseled at length on risks and benefits of continuing benzodiazepine medication. Discussed side effects, including but not limited to elevated risk of dementia, pneumonia, falls, and sudden cardiorespiratory cessation (especially with concomitant ESTHETICIAN depressants such as alcohol, z-drugs and opioids). Discussed risks of addiction/dependence. I asked the patient to go to the nearest ER/call 911 for any medical emergencies and to also reach out to the clinic. Patient verbalized understanding REMINDERS: Suicide Screen - V: C-SSRS Screening Harper-Suicide Severity Rating Scale (C-SSRS Screener) 1. Over the past month, have you wished you were or wished you could go to sleep and not wake up? No 2. Over the past month, have you had any actual thoughts of killing yourself? No 3. Over the past month, have you been thinking about how you might do this? Response not required due to responses to other questions. 4. Over the past month, have you had these thoughts and had some intention of acting on them? Response not required due to responses to other questions. 5. Over the past month, have you started to work out or worked out the details of how to kill yourself? Response not required due to responses to other questions. 6. If yes, at any time in the past month did you intend to carry out this plan? Response not required due to responses to other questions. 7. In your lifetime, have you ever done anything, started to do anything, or prepared to do anything to end your life (for example, collected pills, obtained a gun, gave away valuables, went to the roof but didn't jump)? No 8. If YES, was this within the past 3 months? Response not required due to responses to other questions. /gifty/ VIVIAN ABDI Psychiatrist, [facility] Signed: 03/20/2024 10:09 VIVIAN ABDI [facility]
--- OUTSIDE RECORDS SUMMARY | 2024-07-19 13:01 | XMS_ITS ---
Author Name [facility] Organization [facility] [place] Address [address] [place] [address] Care Team Providers Care Associate Professor Physician Name Role Phone DELMA DAY Primary Care Provider Unavailab le Selected Encounter This section includes the information on record at [place] for the Encounter. Date/Time Encounter Type Encounter Description Reason Provider Source Apr 14, 2024 02:44 PM [facility] DIG ASSMT&MGMT 20 CLINICAL PHARMACY ICD-10-CM G35 Multiple sclerosis ESPERANZA DE LOS SANTOS Sarah Encounter Template Text not used by [place] Assessments - Encounter Diagnoses This section includes the primary and secondary diagnoses documented for the Encounter. Date/Time Primary/Secondary Diagnosis Diagnosis Name Provider Source Apr 14, 2024 02:48 PM PRIMARY Multiple sclerosis ESPERANZA DE LOS SANTOS [facility] Plan of Treatment: Future Appointments (+ 6 months) and Future Tests (+/- 45 days) The Plan of Treatment section includes future care activities for the patient [facility] [place] [facility] This section includes future appointments and future orders which are active, pending or scheduled. Future Appointments This section includes appointments that were scheduled to occur 6 months from the date of the Encounter, up to a maximum of 20 appointments. The data comes from all [place] treatment facilities. Appointment Date/Time Appointment Type Appointme nt Facility Name Apr 23, 2024 10:00 AM AMBULATORY - MEDICINE [facility] May 05, 2024 11:00 AM AMBULATORY - MEDICINE [facility] May 05, 2024 01:30 PM AMBULATORY - MEDICINE [facility] May 06, 2024 11:00 AM AMBULATORY - MEDICINE [facility] May 17, 2024 09:00 AM AMBULATORY - NONE [facility] May 23, 2024 07:30 AM AMBULATORY - NONE [facility] June 16, 2024 11:00 AM AMBULATORY - PSYCHIATRY [facility] July 02, 2024 01:30 PM AMBULATORY - NONE [facility] Sep 15, 2024 09:30 AM AMBULATORY - PSYCHIATRY [facility] Lab Results: +/- 30 days of the [...] Unit Interpretation Reference Range Specimen Type Comment Apr 23, 2024 04:19 PM [facility] LIPID PANEL (STL) PLASMA Specimen Type: PLASMA No comment entered. Ordering Provider: DELMA DAY Report Released Date/Time: Apr 23, 2024 10:16 AM Reporting Lab: [facility] [address] [place] [phone] Performing Lab: [facility] [address] [place] [id number] CHOLESTEROL 235 mg/dL H 0-200 TRIGLYCERIDE 246 mg/dL H 0-150 CALCULATED LDL 149 mg/dL HDL(New) 37 mg/dL L >40 Apr 23, 2024 04:19 PM [facility] HGA1C BLOOD Specimen Type: BLOOD No comment entered. Ordering Provider: DELMA DAY Report Released Date/Time: Apr 23, 2024 10:16 AM Reporting Lab: [address] [address] Performing Lab: [facility] [address] [place] [phone] HGA1C 5.5 4.0-6.0 Apr 23, 2024 04:19 PM [facility] PROST. SPECIFIC AG.(PB-STL) SERUM Specimen Ty pe: SERUM Comment: The listed sex of this patient may not be a typical indication for this test. Therefore, reference ranges or interpretive criteria listed may not be valid. Clinical correlation suggested. Ordering Provider: DELMA DAY Report Released Date/Time: Apr 23, 2024 10:16 AM Reporting Lab: [place] [address] [facility] [phone] Performing Lab: [address] [phone] PROST. SPECIFIC AG.(PB-STL) 0.355 ng/mL 0-4 Apr 23, 2024 04:19 PM [facility] TSH W/ REFLEX FT4 (STL) PLASMA Speci men Type: PLASMA No comment entered. Ordering Provider: DELMA DAY Report Released Date/Time: Apr 23, 2024 10:16 AM Reporting Lab: [facility] [address] Performing Lab: [place] [address] [facility] [address] TSH 2.066 u[IU]/mL 0.47-5 Apr 23, 2024 04:19 PM [facility] VITAMIN D, 25-HYDROXY SERUM Specimen Type: SE RUM Comment: The listed sex of this patient may not be a typical indication for this test. Therefore, reference ranges or interpretive criteria listed may not be valid. Clinical correlation suggested. Ordering Provider: DELMA DAY Report Released Date/Time: Apr 23, 2024 10:16 AM Reporting Lab: [facility] [address] Performing Lab: [address] [address] VITAMIN D, 25-HYDROXY 28.0 ng/mL L 30-96 Apr 23, 2024 04:18 PM [facility] CD19, B CELL PANEL BLOOD Specimen Type: BLOOD No comment entered. Ordering Provider: KONSTANTIN WHALEN Report Released Date/Time: Apr 09, 2024 11:41 AM Reporting Lab: [facility] [address] [place] [phone] Performing Lab: [facility] [address] [facility] CD,19 B CELLS(STL) 0 {cells}/uL L 110-660 LYMPHOCYTES-SO 1274 {cells}/uL 850-3900 CD19 Percentage 0 L 6-29 Apr 23, 2024 04:01 PM [facility] IGG (STL) PLASMA Specimen Type: PLASM A Comment: No hemolysis noted. Ordering Provider: KONSTANTIN WHALEN Report Released Date/Time: Apr 09, 2024 11:41 AM Reporting Lab: [address] [address] Performing Lab: [address] [address] IGG (STL) 767 mg/dL 540-1822 Apr 23, 2024 04:01 PM [facility] COMPREHENSIVE METABOLIC PANEL PLASMA Specimen Type: PLASMA Comment: No hemolysis noted. Ordering Provider: KONSTANTIN WHALEN Report Released Date/Time: Apr 09, 2024 11:41 AM Reporting Lab: [address] [address] Performing Lab: [address] [address] CREATININE 0.91 mg/dL 0.7-1.3 UREA NITROGEN 13.5 mg/dL 9.0-25.0 GLUCOSE 101 mg/dL H 72-99 SODIUM 142 meq/L 136-145 POTASSIUM 4.1 meq/L 3.5-5 CHLORIDE 105 meq/L 98-107 CARBON DIOXIDE 25 meq/L 22-31 CALCIUM 9.4 mg/dL 8.4-10.4 PROTEIN 7.3 g/dL 6-8.6 ALBUMIN 4.4 g/dL 3.4-5 TOTAL BILIRUBIN 0.4 mg/dL 0.2-1.2 ALKALINE PHOSPHATASE 101 U/L 40-150 AST/SGOT 29 U/L 5-34 ALT/SGPT 26 U/L 8-40 EGFR (CKD-EPI 2020) 97.1 >60 Apr 23, 2024 04:01 PM [facility] CBC BLOOD Specimen Type: BLOOD No comment entered. Ordering Provider: KONSTANTIN WHALEN Report Released Date/Time: Apr 09, 2024 11:41 AM Reporting Lab: [facility] [address] [facility] [address] Performing Lab: [facility] [address] [facility] [phone] WBC 8.1 10*3/uL 3.6-11.2 RBC 5.54 10*6/uL 4.10-5.70 HGB 16.1 g/dL 13.1-16.8 HCT 48.2 38.2-48.4 MCV 87.0 fL 80.0-100.0 MCH 29.1 pg 27.0-34.0 MCHC 33.4 g/dL 33.0-36.0 PLT 341 10*3/uL 150-400 MPV 10.7 fL 7.5-11.2 RDW 13.5 11.8-15.1 LYMPHOCYTES, AUTO % 17 MONOCYTES, AUTO % 7 NEUTROPHILS, AUTO % 74 EOSINOPHILS, AUTO % 1 BASOPHILS, AUTO % 1 LYMPHOCYTES, ABSOLUTE 1.35 10*3/uL 0.77- 4.50 MONOCYTES, ABSOLUTE 0.58 10*3/uL 0.19-0. 80 NEUTROPHILS, ABSOLUTE 5.97 10*3/uL 2.10- 8.00 EOSINOPHILS, ABSOLUTE 0.10 10*3/uL 0.00- 0.60 BASOPHILS, ABSOLUTE 0.06 10*3/uL 0.00-0. 20 Social History: Smoking Status (Most current) and Tobacco Use (All prior to encounter date) This section includes the most current, and the historical, smoking and tobacco- related health factors from the [place] facility where the Encounter took place. Current Smoking Status This section includes the most current smoking, or tobacco-related health factor, from the [place] facility where the Encounter took place. Date/Time Current Smoking Status Comment Facil ity Feb 02, 2016 06:02 PM TOBACCO OFFERED [facility] Tobacco Use History This section includes a history of the smoking, or tobacco-related health factors, that were collected on or before the date of the Encounter. The data comes from the [place] facility where the Encounter took place. Date/Time Smoking Status/Tobacco Use Comment F acility Feb 02, 2016 06:[address] [facility] Encounter Notes: All associated encounter notes This section contains the clinical notes associated to the Encounter. Date/Time Encounter Note(s) Provider Source Apr 14, 2024 02:44 PM PHARMACY CONSULT: LOCAL TITLE: PHARMACY PRIOR APPROVAL CONSULT ST STANDARD TITLE: PHARMACY CONSULT DATE OF NOTE: APR 14, 2024@14:44 ENTRY DATE: APR 14, 2024@14:44:37 AUTHOR: ESPERANZA DE LOS SANTOS EXP COSIGNER: URGENCY: STATUS: COMPLETED The medical record has been reviewed with regard to this prior authorization drug request. Medication requested: RITUXIMAB-PVVR 10MG/ML SOLN INJ Medication indication: multiple sclerosis Medical history relevant to this request: New request () Renewal request (x) Medication: Rituximab Strength: 500 mg Sig: Give 500mg IVPB every 6 months Quantity: 1 Refills: 1 Medical history relevant to this request: Patient is a 59 yo M w/MS on rituximab (previously changed from Tysabri due to STRATIFY positive and LOT >24 months). Patient doing well on therapy. CBC and CMP okay 2023; will be rechecked prior to infusion. Labs on same date as infusion appt as patient lives significant distance from infusion clinic. Report Released Date/Time: Nov 05, 2023@12:51 Specimen Collection Date: Nov 05, 2023@12:01 Test name Result units Ref. range Site Code IGG (STL) 772 mg/dL 540 - 1822 [657] Report Released Date/Time: Nov 09, 2023@14:27 Specimen Collection Date: Nov 05, 2023@12:01 Test name Result units Ref. range Site Code CD,19 B CELLS(STL) comment cells/uL 110 - 660 [66172] CD19 Percentage 0 L % 6 - 29 [40527] LYMPHOCYTES-SO 1307 cells/uL 850 - 3900 [59518] -- Approved for use (biosimilar okay per discussion with Dr Whalen) -- Will alert for plan of care and scheduling The request is approved - The patient previously responded to a non-formulary or non-preferred agent and serious risk is associated with a change the preferred formulary alternative(s) TIME REVIEWING CHART: 15 min /es/ ESPERANZA DE LOS [place]ANTOS, PHARMD, BCACP, CACP CLINICAL PHARMACY PRACTITIONER Signed: 04/14/2024 14:49 Receipt Acknowledged By: 04/15/2024 15:10 /es/ ARCELIA MCMANUS,RN REGISTERED NURSE 04/15/2024 11:12 /es/ TAHMINA ROONEYN RN REGISTERED NURSE 04/14/2024 17:00 /es/ Konstantin Whalen MD, PhD Staff Physician - Neurology ESPERANZA DE [place]ANT[place] [facility]
--- OUTSIDE RECORDS SUMMARY | 2024-07-19 13:01 | XMS_ITS | Continuity of Care Document ---
Author Name [facility] Organization [facility] Care Team Providers Care Patient Relations Representative Name Role Phone [facility] Unavailable Unavailable Problems Combined list of problems from Department of Defense and Veterans Affairs facilities. It does not include entries that were removed or entered in error. Problem Status Onset Date Problem Type Date of Resolution Comments Source Arthritis Active Condition May 27 Entered By: ROSETTE DAY Comment: right foot, ankle, left knee and lower back [facility] Benign essential hypertension Active Condition [facility] Cannabis abuse Active Condition [facility] Degenerative disc disease Active Condition [facility] Depression Active Condition [facility] Dropfoot Active Condition May 27 Entered By: ROSETTE DAY Comment: rt sided. [facility] Erectile dysfunction Active Condition [facility] Incontinence Active Condition [facility] Inflamed seborrhoeic keratosis Active Condition [facility] Long-term current use of drug therapy Active Condition [facility] Multiple sclerosis (MS) relapsing remitting Active Condition May 28, 2015 Entered By: ROSETTE DAY Comment: dx 02/2014 [facility] Peripheral neuropathy Active Condition [facility] Recurrent falls Active Condition [facility] Renal stone Active Condition May 28, 2015 Entered By: ROSETTE DAY Comment: dx 05/13/2015 [facility] Tobacco use Active Condition May 28, 2015 Entered By: ROSETTE DAY Comment: 1.5 ppd x 30 yrs. [facility] Vitamin D deficiency Active Condition [facility] Diagnosis: ICD-10-CM F33.9 Major depressive disorder, recurrent, unspecified Active Diagnosis [facility] Diagnosis: ICD-10-CM G35 Multiple sclerosis Active Diagnosis [facility] Diagnosis: ICD-10-CM Z12.2 Encntr screen for malignant neoplasm of respiratory organs Active Diagnosis [facility] Diagnosis: ICD-10-CM Z51.11 Encounter for antineoplastic chemotherapy Active Diagnosis [facility] Medications Combined list of outpatient medications from Department of Defense and Veterans Affairs facilities.Medications provided include 1) outpatient medications from the last 15 months, and 2) patient-reported medications. Medication Details Route Status Patient Instructions Prescription Expires Prescription Number Last Dispense Date Ordering Provider Order Date Order Qty Source BACLOFEN 10MG TAB TAKE ONE TABLET BY MOUTH THREE TIMES A DAY ORAL ACTIVE 01/14/2025 [id number] BEAU WHALEN 2023 270 [facility] BUPROPION HCL 150MG 24HR TAB,SA TAKE THREE TABLETS BY MOUTH ONCE A DAY SWALLOW WHOLE - DO NOT CRUSH OR CHEW. ORAL ACTIVE 03/21/2025 [id number] VIVIAN ABDI 2024 270 [facility] BUPROPION HCL 150MG 24HR TAB,SA TAKE TWO TABLETS BY MOUTH EVERY MORNING AND TAKE ONE TABLET EVERY EVENING FOR DEPRESSI ON SWALLOW WHOLE - DO NOT CRUSH OR CHEW. ORAL 03/13/2024 [id number] RICHARD BONNER JR 2023 270 [facility] CYANOCOBALA MIN 500MCG TAB TAKE ONE TABLET BY MOUTH ONCE A DAY ORAL ACTIVE DELMA DAY 2015 [facility] DULOXETINE HCL 30MG CAP,EC TAKE ONE CAPSULE BY MOUTH ONCE A DAY FOR DEPRESSI ON DO NOT ABRUPTLY DISCONTI NUE MEDICATI ON. ORAL ACTIVE 06/17/2025 [id number] 5 VIVIAN ABDI 2024 90 [facility] DULOXETINE HCL 30MG CAP,EC TAKE THREE CAPSULES BY MOUTH ONCE A DAY FOR DEPRESSI ON DO NOT ABRUPTLY DISCONTI NUE MEDICATI ON. ORAL 03/13/2024 [id number] RICHARD BONNER JR 2023 270 [facility] DULOXETINE HCL 60MG CAP,EC TAKE ONE CAPSULE BY MOUTH ONCE A DAY DO NOT ABRUPTLY DISCONTI NUE MEDICATI ON. ORAL DISCONT INUED (EDIT) 03/21/2025 [id number] BK ABDIA DASHA 2024 90 [facility] HYDROCHLORO THIAZIDE 25MG TAB TAKE ONE TABLET BY MOUTH ONCE A DAY FOR BLOOD PRESSURE ORAL ACTIVE 03/04/2025 [id number] 5 DELMA DAY 2024 90 [facility] HYDROCHLORO THIAZIDE 25MG TAB TAKE ONE TABLET BY MOUTH ONCE A DAY FOR BLOOD PRESSURE ORAL DISCONT INUED 12/26/2023 [id number] DELMA DAY 2022 90 [facility] LORAZEPAM 0.5MG TAB TAKE ONE TABLET BY MOUTH EVERY MONTH NEEDED ORAL ACTIVE VIVIAN ABDI 2024 [facility] LOSARTAN 50MG TAB TAKE ONE-HALF TABLET BY MOUTH ONCE A DAY TO LOWER BLOOD PRESSURE ORAL DISCONT INUED (EDIT) 01/27/2024 [id number] DELMA DAY 2022 45 [facility] [place] POTASSIUM 100MG TAB TAKE ONE-HALF TABLET BY MOUTH ONCE A DAY TO LOWER BLOOD PRESSURE ORAL ACTIVE 09/28/2024 [id number] 5 DELMA DAY 2023 45 [facility] MODAFINIL 200MG TAB TAKE ONE-HALF TABLET BY MOUTH TWICE A DAY FOR DAYTIME SLEEPINE SS ORAL ACTIVE 10/03/2024 [id number] 5 DELMA DAY 2024 30 [facility] MODAFINIL 200MG TAB TAKE ONE-HALF TABLET BY MOUTH TWICE A DAY FOR DAYTIME SLEEPINE SS ORAL 03/30/2024 [id number] 5 DELMA DAY 2023 30 [facility] MODAFINIL 200MG TAB TAKE ONE-HALF TABLET BY MOUTH TWICE A DAY FOR DAYTIME SLEEPINE SS ORAL 09/13/2023 [id number] RICHARD BONNER 2023 30 [facility] Immunizations Combined list of available immunizations from the Department of [facility] and Veterans Affairs facilities. 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 Status Comments Source INFLUENZA, INJECTABLE, QUADRIVALENT, PRESERVATIVE FREE 2018 150 complet ed [facility] PNEUMOCOCCAL POLYSACCHARID E PPV23 2016 33 complet ed [facility] TDAP 2016 115 complet ed Right Deltoid [facility] INFLUENZA, INJECTABLE, QUADRIVALENT, PRESERVATIVE FREE 2016 150 complet ed [facility] PNEUMOCOCCAL CONJUGATE PCV 13 2015 133 complet ed [facility] INFLUENZA, UNSPECIFIED FORMULATION 2014 88 complet ed [facility] Results Combined list of recent chemistry, hematology and other laboratory results from Department of [facility] and [facility], ranging from 15 months to all on record, depending upon the facility. Order Name Results Value Reference Range Date Interpretation Specimen Comments Source LIPID PANEL (STL) CHOLESTEROL [MASS/VOLUM E] IN SERUM OR PLASMA 235 mg/dL 0 - 200 04/23 H Specimen Type: PLASMA No comment entered. Ordering Provider: Amari DAY Report Released Date/Time: Apr 23, 2024 10:16 AM Reporting Lab: [facility] [address] [facility] [address] Performing Lab: [facility] [address] [facility] [address] [facility] LIPID PANEL (STL) TRIGLYCERID E [MASS/VOLUM E] IN SERUM OR PLASMA 246 mg/dL 0 - 150 04/23 H Specimen Type: PLASMA No comment entered. Ordering Provider: Amari DAY Report Released Date/Time: Apr 23, 2024 10:16 AM Reporting Lab: [address] [address] Performing Lab: [phone] [place] [address] [facility] LIPID PANEL (STL) CHOLESTEROL IN LDL [MASS/VOLUM E] IN SERUM OR PLASMA BY CALCULATION 149 mg/dL 04/23 Specimen Type: PLASMA No comment entered. Ordering Provider: Amari DAY Report Released Date/Time: Apr 23, 2024 10:16 AM Reporting Lab: [address] [address] Performing Lab: [address] [phone] [facility] LIPID PANEL (STL) CHOLESTEROL IN HDL [MASS/VOLUM E] IN SERUM OR PLASMA 37 mg/dL 40 04/23 L Specimen Type: PLASMA No comment entered. Ordering Provider: Amari DAY Report Released Date/Time: Apr 23, 2024 10:16 AM Reporting Lab: [address] [address] Performing Lab: [address] [phone] [place] [address] [facility] HGA1C HEMOGLOBIN A1C/HEMOGLO BIN.TOTAL IN BLOOD 5.5 4.0 - 6.0 04/23 Specimen Type: BLOOD No comment entered. Ordering Provider: Amari DAY Report Released Date/Time: Apr 23, 2024 10:16 AM Reporting Lab: [address] [address] Performing Lab: [address] [phone] [facility] PROST. SPECIFIC AG.(PB-ST L) PROSTATE SPECIFIC AG [MASS/VOLUM E] IN SERUM OR PLASMA 0.355 ng/mL 0 - 4 04/23 Specimen Type: SERUM Comment: The listed sex of this patient may not be a typical indication for this test. Therefore, reference ranges or interpretiv e criteria listed may not be valid. Clinical correlation suggested. Ordering Provider: Amari DAY Report Released Date/Time: Apr 23, 2024 10:16 AM Reporting Lab: [place] [address] Performing Lab: [address] [facility] VITAMIN D, 25-HYDROX Y 25-HYDROXYV ITAMIN D3 [MASS/VOLUM E] IN SERUM OR PLASMA 28.0 ng/mL 30 - 96 04/23 L Specimen Type: SERUM Comment: The listed sex of this patient may not be a typical indication for this test. Therefore, reference ranges or interpretiv e criteria listed may not be valid. Clinical correlation suggested. Ordering Provider: Amari DAY Report Released Date/Time: Apr 23, 2024 10:16 AM Reporting Lab: [place] [address] Performing Lab: [address] [facility] TSH W/ REFLEX FT4 (STL) THYROTROPIN [UNITS/VOLU ME] IN SERUM OR PLASMA 2.066 u[IU]/ mL 0.47 - 5 04/23 Specimen Type: PLASMA No comment entered. Ordering Provider: Amari DAY Report Released Date/Time: Apr 23, 2024 10:16 AM Reporting Lab: [place] [address] Performing Lab: [address] [facility] CD19, B CELL PANEL CD19 CELLS [#/VOLUME] IN BLOOD 0 {cells }/uL 110 - 660 04/23 L Specimen Type: BLOOD No comment entered. Ordering Provider: JUAN CARLOS WHALEN Report Released Date/Time: Apr 09, 2024 11:41 AM Reporting Lab: [place] [address] Performing Lab: [facility] [id number] [place] [address] [facility] CD19, B CELL PANEL LYMPHOCYTES [#/VOLUME] IN BLOOD BY AUTOMATED COUNT 1274 {cells }/uL 850 - 3900 04/23 Specimen Type: BLOOD No comment entered. Ordering Provider: JUAN CARLOS WHALEN Report Released Date/Time: Apr 09, 2024 11:41 AM Reporting Lab: [address] [address] Performing Lab: [address] [facility] CD19, B CELL PANEL CD19 CELLS/100 CELLS IN BLOOD 0 6 - 29 04/23 L Specimen Type: BLOOD No comment entered. Ordering Provider: JUAN CARLOS WHALEN Report Released Date/Time: Apr 09, 2024 11:41 AM Reporting Lab: [address] [address] Performing Lab: [address] [facility] IGG (STL) IGG [MASS/VOLUM E] IN SERUM OR PLASMA 767 mg/dL 540 - 1822 04/23 Specimen Type: PLASMA Comment: No hemolysis noted. Ordering Provider: JUAN CARLOS WHALEN Report Released Date/Time: Apr 09, 2024 11:41 AM Reporting Lab: [address] [address] Performing Lab: [address] [address] [facility] COMPREHEN SIVE METABOLIC PANEL CREATININE [MASS/VOLUM E] IN SERUM OR PLASMA 0.91 mg/dL 0.7 - 1.3 04/23 Specimen Type: PLASMA Comment: No hemolysis noted. Ordering Provider: JUAN CARLOS WHALEN Report Released Date/Time: Apr 09, 2024 11:41 AM Reporting Lab: [address] [address] Performing Lab: [address] [place] [address] [facility] COMPREHEN SIVE METABOLIC PANEL UREA NITROGEN [MASS/VOLUM E] IN SERUM OR PLASMA 13.5 mg/dL 9.0 - 25.0 04/23 Specimen Type: PLASMA Comment: No hemolysis noted. Ordering Provider: JUAN CARLOS WHALEN Report Released Date/Time: Apr 09, 2024 11:41 AM Reporting Lab: [place] [address] [facility] [address] Performing Lab: [place] [address] [facility] [address] [facility] COMPREHEN SIVE METABOLIC PANEL GLUCOSE [MASS/VOLUM E] IN SERUM OR PLASMA 101 mg/dL 72 - 99 04/23 H Specimen Type: PLASMA Comment: No hemolysis noted. Ordering Provider: JUAN CARLOS WHALEN Report Released Date/Time: Apr 09, 2024 11:41 AM Reporting Lab: [place] [address] [facility] [address] Performing Lab: [place] [address] [facility] [address] [facility] COMPREHEN SIVE METABOLIC PANEL SODIUM [MOLES/VOLU ME] IN SERUM OR PLASMA 142 meq/L 136 - 145 04/23 Specimen Type: PLASMA Comment: No hemolysis noted. Ordering Provider: JUAN CARLOS WHALEN Report Released Date/Time: Apr 09, 2024 11:41 AM Reporting Lab: [place] [address] [facility] [address] Performing Lab: [place] [address] [facility] [address] [facility] COMPREHEN SIVE METABOLIC PANEL POTASSIUM [MOLES/VOLU ME] IN SERUM OR PLASMA 4.1 meq/L 3.5 - 5 04/23 Specimen Type: PLASMA Comment: No hemolysis noted. Ordering Provider: JUAN CARLOS WHALEN Report Released Date/Time: Apr 09, 2024 11:41 AM Reporting Lab: [place] [address] [facility] [address] Performing Lab: [place] [address] [address] [facility] [address] [facility] COMPREHEN SIVE METABOLIC PANEL CHLORIDE [MOLES/VOLU ME] IN SERUM OR PLASMA 105 meq/L 98 - 107 04/23 Specimen Type: PLASMA Comment: No hemolysis noted. Ordering Provider: JUAN CARLOS WHALEN Report Released Date/Time: Apr 09, 2024 11:41 AM Reporting Lab: [place] [address] [facility] [address] Performing Lab: [place] [address] [facility] [address] [facility] COMPREHEN SIVE METABOLIC PANEL CARBON DIOXIDE, TOTAL [MOLES/VOLU ME] IN SERUM OR PLASMA 25 meq/L 22 - 31 04/23 Specimen Type: PLASMA Comment: No hemolysis noted. Ordering Provider: JUAN CARLOS WHALEN Report Released Date/Time: Apr 09, 2024 11:41 AM Reporting Lab: [place] [address] [address] [facility] [address] Performing Lab: [place] [address] [facility] [address] [facility] COMPREHEN SIVE METABOLIC PANEL CALCIUM [MASS/VOLUM E] IN SERUM OR PLASMA 9.4 mg/dL 8.4 - 10.4 04/23 Specimen Type: PLASMA Comment: No hemolysis noted. Ordering Provider: JUAN CARLOS WHALEN Report Released Date/Time: Apr 09, 2024 11:41 AM Reporting Lab: [place] [address] [facility] [address] Performing Lab: [place] [address] [facility] [address] [facility] COMPREHEN SIVE METABOLIC PANEL PROTEIN [MASS/VOLUM E] IN SERUM OR PLASMA 7.3 g/dL 6 - 8.6 04/23 Specimen Type: PLASMA Comment: No hemolysis noted. Ordering Provider: JUAN CARLOS WHALEN Report Released Date/Time: Apr 09, 2024 11:41 AM Reporting Lab: [place] [address] [address] [facility] [address] Performing Lab: [place] [address] [facility] [address] [facility] COMPREHEN SIVE METABOLIC PANEL ALBUMIN [MASS/VOLUM E] IN SERUM OR PLASMA 4.4 g/dL 3.4 - 5 04/23 Specimen Type: PLASMA Comment: No hemolysis noted. Ordering Provider: JUAN CARLOS WHALEN Report Released Date/Time: Apr 09, 2024 11:41 AM Reporting Lab: [place] [address] [facility] [address] Performing Lab: [place] [address] [facility] [address] [facility] COMPREHEN SIVE METABOLIC PANEL BILIRUBIN.T OTAL [MASS/VOLUM E] IN SERUM OR PLASMA 0.4 mg/dL 0.2 - 1.2 04/23 Specimen Type: PLASMA Comment: No hemolysis noted. Ordering Provider: JUAN CARLOS WHALEN Report Released Date/Time: Apr 09, 2024 11:41 AM Reporting Lab: [place] [address] [facility] [address] Performing Lab: [place] [address] [address] [facility] [address] [facility] COMPREHEN SIVE METABOLIC PANEL ALKALINE PHOSPHATASE [ENZYMATIC ACTIVITY/VO LUME] IN SERUM OR PLASMA 101 U/L 40 - 150 04/23 Specimen Type: PLASMA Comment: No hemolysis noted. Ordering Provider: JUAN CARLOS WHALEN Report Released Date/Time: Apr 09, 2024 11:41 AM Reporting Lab: [place] [address] [facility] [address] Performing Lab: [place] [address] [facility] [address] [facility] COMPREHEN SIVE METABOLIC PANEL ASPARTATE AMINOTRANSF ERASE [ENZYMATIC ACTIVITY/VO LUME] IN SERUM OR PLASMA 29 U/L 5 - 34 04/23 Specimen Type: PLASMA Comment: No hemolysis noted. Ordering Provider: JUAN CARLOS WHALEN Report Released Date/Time: Apr 09, 2024 11:41 AM Reporting Lab: [address] [address] Performing Lab: [address] [address] [facility] COMPREHEN SIVE METABOLIC PANEL ALANINE AMINOTRANSF ERASE [ENZYMATIC ACTIVITY/VO LUME] IN SERUM OR PLASMA 26 U/L 8 - 40 04/23 Specimen Type: PLASMA Comment: No hemolysis noted. Ordering Provider: JUAN CARLOS WHALEN Report Released Date/Time: Apr 09, 2024 11:41 AM Reporting Lab: [address] [address] Performing Lab: [address] [phone] [place] [address] COMPREHEN SIVE METABOLIC PANEL GLOMERULAR FILTRATION RATE/1.73 SQ M.PREDICTED [VOLUME RATE/AREA] IN SERUM, PLASMA OR BLOOD BY CREATININE- BASED FORMULA (CKD-EPI 2020) 97.1 60 04/23 Specimen Type: PLASMA Comment: No hemolysis noted. Ordering Provider: JUAN CARLOS WHAELN Report Released Date/Time: Apr 09, 2024 11:41 AM Reporting Lab: [address] [address] Performing Lab: [address] [address] [facility] CBC LEUKOCYTES [#/VOLUME] IN BLOOD BY AUTOMATED COUNT 8.1 10*3/u L 3.6 - 11.2 04/23 Specimen Type: BLOOD No comment entered. Ordering Provider: JUAN CARLOS WHALEN Report Released Date/Time: Apr 09, 2024 11:41 AM Reporting Lab: [address] [address] Performing Lab: [address] [address] [facility] CBC ERYTHROCYTE S [#/VOLUME] IN BLOOD BY AUTOMATED COUNT 5.54 10*6/u L 4.10 - 5.70 04/23 Specimen Type: BLOOD No comment entered. Ordering Provider: JUAN CARLOS WHALEN Report Released Date/Time: Apr 09, 2024 11:41 AM Reporting Lab: [address] [address] Performing Lab: [address] [address] [place] [address] CBC HEMOGLOBIN [MASS/VOLUM E] IN BLOOD 16.1 g/dL 13.1 - 16.8 04/23 Specimen Type: BLOOD No comment entered. Ordering Provider: JUAN CARLOS WHALEN Report Released Date/Time: Apr 09, 2024 11:41 AM Reporting Lab: [address] [address] Performing Lab: [address] [address] [place] [address] CBC HEMATOCRIT [VOLUME FRACTION] OF BLOOD 48.2 38.2 - 48.4 04/23 Specimen Type: BLOOD No comment entered. Ordering Provider: JUAN CARLOS WHALEN Report Released Date/Time: Apr 09, 2024 11:41 AM Reporting Lab: [address] [address] Performing Lab: [address] [phone] [place] [address] CBC MCV [ENTITIC VOLUME] BY AUTOMATED COUNT 87.0 fL 80.0 - 100.0 04/23 Specimen Type: BLOOD No comment entered. Ordering Provider: JUAN CARLOS WHALEN Report Released Date/Time: Apr 09, 2024 11:41 AM Reporting Lab: [address] [address] Performing Lab: [address] [address] [facility] CBC MCH [ENTITIC MASS] BY AUTOMATED COUNT 29.1 pg 27.0 - 34.0 04/23 Specimen Type: BLOOD No comment entered. Ordering Provider: JUAN CARLOS WHALEN Report Released Date/Time: Apr 09, 2024 11:41 AM Reporting Lab: [address] [address] Performing Lab: [address] [address] [facility] CBC MCHC [MASS/VOLUM E] BY AUTOMATED COUNT 33.4 g/dL 33.0 - 36.0 04/23 Specimen Type: BLOOD No comment entered. Ordering Provider: JUAN CARLOS WHALEN Report Released Date/Time: Apr 09, 2024 11:41 AM Reporting Lab: [address] [address] Performing Lab: [address] [phone] [place] [address] CBC PLATELETS [#/VOLUME] IN BLOOD BY AUTOMATED COUNT 341 10*3/u L 150 - 400 04/23 Specimen Type: BLOOD No comment entered. Ordering Provider: JUAN CARLOS WHALEN Report Released Date/Time: Apr 09, 2024 11:41 AM Reporting Lab: [address] [address] Performing Lab: [address] [phone] [place] [address] CBC PLATELET MEAN VOLUME [ENTITIC VOLUME] IN BLOOD BY AUTOMATED COUNT 10.7 fL 7.5 - 11.2 04/23 Specimen Type: BLOOD No comment entered. Ordering Provider: JUAN CARLOS WHALEN Report Released Date/Time: Apr 09, 2024 11:41 AM Reporting Lab: [address] [address] Performing Lab: [address] [address] [facility] CBC ERYTHROCYTE DISTRIBUTIO N WIDTH [RATIO] BY AUTOMATED COUNT 13.5 11.8 - 15.1 03/12 /2025 Specimen Type: BLOOD No comment entered. Ordering Provider: JUAN CARLOS WHALEN Report Released Date/Time: Apr 09, 2024 11:41 AM Reporting Lab: [facility] [address] [facility] [address] Performing Lab: [facility] [address] [facility] [address] [facility] CBC LYMPHOCYTES /100 LEUKOCYTES IN BLOOD BY AUTOMATED COUNT 17 04/23 Specimen Type: BLOOD No comment entered. Ordering Provider: JUAN CARLOS WHALEN Report Released Date/Time: Apr 09, 2024 11:41 AM Reporting Lab: [facility] [address] [facility] [address] Performing Lab: [facility] [address] [facility] [address] [facility] CBC MONOCYTES/1 00 LEUKOCYTES IN BLOOD BY AUTOMATED COUNT 7 04/23 Specimen Type: BLOOD No comment entered. Ordering Provider: JUAN CARLOS WHALEN Report Released Date/Time: Apr 09, 2024 11:41 AM Reporting Lab: [facility] [address] [facility] [address] Performing Lab: [facility] [address] [facility] [address] [facility] CBC NEUTROPHILS /100 LEUKOCYTES IN BLOOD BY AUTOMATED COUNT 74 04/23 Specimen Type: BLOOD No comment entered. Ordering Provider: JUAN CARLOS WHALEN Report Released Date/Time: Apr 09, 2024 11:41 AM Reporting Lab: [facility] [address] [facility] [address] Performing Lab: [facility] [address] [facility] [address] [facility] CBC EOSINOPHILS /100 LEUKOCYTES IN BLOOD BY AUTOMATED COUNT 1 04/23 Specimen Type: BLOOD No comment entered. Ordering Provider: JUAN CARLOS WHALEN Report Released Date/Time: Apr 09, 2024 11:41 AM Reporting Lab: [facility] [address] Performing Lab: [address] [address] [facility] CBC BASOPHILS/1 00 LEUKOCYTES IN BLOOD BY AUTOMATED COUNT 1 04/23 Specimen Type: BLOOD No comment entered. Ordering Provider: JUAN CARLOS WHALEN Report Released Date/Time: Apr 09, 2024 11:41 AM Reporting Lab: [address] [address] Performing Lab: [address] [address] [facility] CBC LYMPHOCYTES [#/VOLUME] IN BLOOD BY AUTOMATED COUNT 1.35 10*3/u L 0.77 - 4.50 04/23 Specimen Type: BLOOD No comment entered. Ordering Provider: JUAN CARLOS WHALEN Report Released Date/Time: Apr 09, 2024 11:41 AM Reporting Lab: [address] [address] Performing Lab: [address] [address] [facility] CBC MONOCYTES [#/VOLUME] IN BLOOD BY AUTOMATED COUNT 0.58 10*3/u L 0.19 - 0.80 04/23 Specimen Type: BLOOD No comment entered. Ordering Provider: JUAN CARLOS WHALEN Report Released Date/Time: Apr 09, 2024 11:41 AM Reporting Lab: [address] [address] Performing Lab: [address] [address] [facility] CBC NEUTROPHILS [#/VOLUME] IN BLOOD BY AUTOMATED COUNT 5.97 10*3/u L 2.10 - 8.00 04/23 Specimen Type: BLOOD No comment entered. Ordering Provider: JUAN CARLOS WHALEN Report Released Date/Time: Apr 09, 2024 11:41 AM Reporting Lab: [place] [phone] Performing Lab: [address] [address] [facility] CBC EOSINOPHILS [#/VOLUME] IN BLOOD BY AUTOMATED COUNT 0.10 10*3/u L 0.00 - 0.60 04/23 Specimen Type: BLOOD No comment entered. Ordering Provider: JUAN CARLOS WHALEN Report Released Date/Time: Apr 09, 2024 11:41 AM Reporting Lab: [address] [address] Performing Lab: [address] [address] [facility] CBC BASOPHILS [#/VOLUME] IN BLOOD BY AUTOMATED COUNT 0.06 10*3/u L 0.00 - 0.20 04/23 Specimen Type: BLOOD No comment entered. Ordering Provider: JUAN CARLOS WHALEN Report Released Date/Time: Apr 09, 2024 11:41 AM Reporting Lab: [address] [address] Performing Lab: [address] [address] [facility] IGG (STL) IGG [MASS/VOLUM E] IN SERUM OR PLASMA 772 mg/dL 540 - 1822 11/04 Specimen Type: PLASMA No comment entered. Ordering Provider: JUAN CARLOS WHALEN Report Released Date/Time: Nov 05, 2023 11:25 AM Reporting Lab: [address] [address] Performing Lab: [address] [address] [facility] Vital Signs Combined list of inpatient and outpatient Vital Signs from Department of Defense and Veterans Affairs, ranging from 12 months to all on record, depending upon the facility. Vital Sign Value Date Comments Source SYSTOLIC BLOOD PRESSURE 145 05/05/2024 11:15:00 [facility] DIASTOLIC BLOOD PRESSURE 95 05/05/2024 11:15:00 [facility] PULSE OXIMETRY 97 05/05/2024 11:15:00 [facility] TEMPERATURE 97.9 05/05/2024 11:15:00 [facility] PULSE 74 05/05/2024 11:15:00 [facility] RESPIRATION 18 05/05/2024 11:15:00 [facility] SYSTOLIC BLOOD PRESSURE 138 04/23/2024 10:06:44 [facility] DIASTOLIC BLOOD PRESSURE 93 04/23/2024 10:06:44 [facility] PULSE OXIMETRY 96 04/23/2024 10:06:44 [facility] WEIGHT 258 04/23/2024 10:06:44 [facility] BMI 36 kg/m2 04/23/2024 10:06:44 [facility] PAIN 6 04/23/2024 10:06:44 [facility] TEMPERATURE 98.1 04/23/2024 10:06:44 [facility] PULSE 66 04/23/2024 10:06:44 [facility] RESPIRATION 20 04/23/2024 10:06:44 [facility] SYSTOLIC BLOOD PRESSURE 138 11/05/2023 12:23:23 [facility] DIASTOLIC BLOOD PRESSURE 89 11/05/2023 12:23:23 [facility] PULSE OXIMETRY 97 11/05/2023 12:23:23 [facility] TEMPERATURE 97.8 11/05/2023 12:23:23 [facility] PULSE 87 11/05/2023 12:23:23 [facility] RESPIRATION 20 11/05/2023 12:23:23 [facility] SYSTOLIC BLOOD PRESSURE 155 09/28/2023 14:09:41 [facility] DIASTOLIC BLOOD PRESSURE 101 09/28/2023 14:09:41 [facility] PULSE OXIMETRY 96 09/28/2023 14:09:41 [facility] WEIGHT 269 09/28/2023 14:09:41 [facility] BMI 38 kg/m2 09/28/2023 14:09:41 [facility] PAIN 0 09/28/2023 14:09:41 [facility] TEMPERATURE 97.8 09/28/2023 14:09:41 [facility] PULSE 97 09/28/2023 14:09:41 [facility] RESPIRATION 20 09/28/2023 14:09:41 [facility] Encounters Combined list of: 1) Encounters from Department of [facility] facilities going backup to the last 18 months, not all [place] inpatient encounters are included; 2) Encounters from the Department of [facility] facilities going backup to 280 months. Location Location Details Encounter Type Encounter Number Reason For Visit Attending Provider ADM Date DC Date Status Disposition Source [facility] OFFICE O/P EST MOD 30 MIN [id number] Diagnos is: ICD-10- CM F33.9 Major depress porsha disorde r, recurre nt, unspeci fied KAILEY,WILL SNOW M JR 03/13 [facility] Outpatient Encounter [id number] YOLANDA QURESHI 03/13 [facility] Outpatient Encounter [id number] 03/23 [facility] OFF/OP EST MAY X REQ PHY/QHP [id number] Diagnos is: ICD-10- CM G35 Multipl e scleros is YONATHAN,CY NTHIA A 03/25 [facility] Outpatient Encounter [id number] YONATHAN,CY NTHIA A 03/25 [facility] Outpatient Encounter [id number] 03/26 [facility] QNHP OL DIG ASSMT&MGMT - [id number] [id number] 4 Diagnos is: ICD-10- CM G35 Multipl e scleros is Dominic DE [place] NNA P 03/30 [facility] Outpatient Encounter [id number] YOLANDA QURESHI 04/03 [facility] HC PRO PHONE CALL 5-10 MIN [id number] 3 Diagnos is: ICD-10- CM G35 Multipl e scleros is JEANNETTE MCMANUS NTHIA A 04/04 [facility] Outpatient Encounter [id number] 3 04/24 [facility] OFFICE O/P EST HI 40 MIN [id number] Diagnos is: ICD-10- CM G35 Multipl e scleros is JUAN CARLOS WHALEN 04/29 [facility] Outpatient Encounter [id number] 04/29 [facility] THERAPEUTI C ACTIVITIES [id number] Diagnos is: ICD-10- CM G35 Multipl e scleros is HENNY ANDREA 04/29 [facility] CHEMO IV INFUSION 1 HR [id number] 4 Diagnos is: ICD-10- CM Z51.11 Encount er for antineo plastic chemoth FERNANDO Monsivais Amari 04/29 [facility] Outpatient Encounter [id number] 06/14 [facility] Outpatient Encounter [id number] HOMER HUGHES E 08/02 [facility] Outpatient Encounter [id number] 08/02 [facility] Outpatient Encounter [id number] 9 YONATHAN,CY NTHIA A 08/26 [facility] Outpatient Encounter [id number] 1 09/27 [facility] OFFICE O/P EST MOD 30 MIN [id number] Diagnos is: ICD-10- CM F33.9 Major depress porsha disorde r, recurre nt, unspeci fied DELMA DAY 09/27 [facility] Outpatient Encounter [id number] 1 YONATHAN,CY NTHIA A 10/09 [facility] HC PRO PHONE CALL 11-20 MIN [id number] Diagnos is: ICD-10- CM G35 Multipl e scleros is YONATHAN,CY NTHIA A 10/17 [facility] HC PRO PHONE CALL 5-10 MIN [id number] [id number] Diagnos is: ICD-10- CM G35 Multipl e scleros is Urvashi DUARTE S 10/18 [facility] Outpatient Encounter [id number] 1 JEANNETTE MCMANUS NTHIA A 10/28 [facility] OFFICE O/P EST HI 40 MIN [id number] Diagnos is: ICD-10- CM G35 Multipl e scleros is JUAN CARLOS WHALEN 11/04 [facility] ORAL PRESCRIP DRUG NON CHEMO [id number] Diagnos is: ICD-10- CM Z51.11 Encount er for antineo plastic chemoth SASKIA Hooks 11/04 [facility] HC PRO PHONE CALL 5-10 MIN [id number] [id number] 1 Diagnos is: ICD-10- CM G35 Multipl e scleros is JEANNETTE MCMANUS NTHIA A 01/08 [facility] Outpatient Encounter [id number] 1 JEANNETTE MCMANUS NTHIA A 01/08 [facility] Outpatient Encounter [id number] 02/19 [facility] SYNCH AUDIO-ONLY EST HIGH 40 [id number] Diagnos is: ICD-10- CM F33.9 Major depress porsha disorde r, recurre nt, unspeci fied VIVIAN ABDI 03/20 [facility] Outpatient Encounter [id number] 03/21 [facility] Outpatient Encounter [id number] Sarah SANCHES R 04/03 [facility] Outpatient Encounter [id number] 9 04/09 [facility] PH1 ASSMT&MGMT NQHP 11-20 [id number] [id number] Diagnos is: ICD-10- CM G35 Multipl e scleros is YONATHAN,CY NTHIA A 04/09 [facility] Outpatient Encounter [id number]. [id number] 3 YONATHAN,CY NTHIA A 04/09 [facility] NQHP OL DIG ASSMT&MGMT - [id number] [id number] 4 Diagnos is: ICD-10- CM G35 Multipl e scleros is Dominic DE [place] NNA P 04/14 [facility] Outpatient Encounter [id number] Sarah SANCHES R 04/18 [facility] OFFICE O/P EST MOD 30 MIN [id number] Diagnos is: ICD-10- CM F33.9 Major depress porsha disorde r, recurre nt, unspeci fied DELMA DAY 04/23 [facility] Outpatient Encounter [id number] [id number] 1 04/23 [facility] NQHP OL DIG ASSMT&MGMT 5-10 [id number] Diagnos is: ICD-10- CM G35 Multipl e scleros is Yoselin MELO 05/01 [facility] DIPHENHYDR AMINE HCL 50MG [id number] [id number] 1 Diagnos is: ICD-10- CM Z51.11 Encount er for antineo plastic chemoth JESSICA Morales F 05/05 [facility] Outpatient Encounter [id number] 05/05 [facility] OFFICE O/P EST HI 40 MIN [id number] Diagnos is: ICD-10- CM G35 Multipl e scleros is KOBYJUAN CARLOS 05/05 [facility] OFF/OP CONSLTJ NEW/EST SF 20 [id number] Diagnos is: ICD-10- CM Z12.2 Encntr screen for maligna nt neoplas m of respira tory organs ЮЛИЯ GALINDO A 05/06 [facility] Outpatient Encounter [id number] 05/16 [facility] Outpatient Encounter [id number] 05/17 [facility] Outpatient Encounter [id number] 3 Diagnos is: ICD-10- CM Z12.2 Encntr screen for maligna nt neoplas m of respira tory organs BRITTNI WHITT 05/19 [facility] Outpatient Encounter [id number] 3 YONATHAN,CY NTHIA A 05/22 [facility] Outpatient Encounter [id number] 3 05/23 [facility] NQHP OL DIG ASSMT&MGMT 01-01 [id number] 3 Diagnos is: ICD-10- CM G35 Multipl e scleros is YONATHAN,CY NTHIA A 06/05 [facility] Outpatient Encounter [id number] 3 YONATHAN,CY NTHIA A 06/05 [facility] OFFICE O/P EST MOD 30 MIN [id number] Diagnos is: ICD-10- CM F33.9 Major depress porsha disorde r, recurre nt, unspeci fied VIVIAN ABDI 06/16 [facility] Outpatient Encounter [id number] [id number] 07/02 [facility] Social History Combined list of available 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 06/03/2018 [facility] History of tobacco use TOBACCO USER OFFERED MEDS 08/16/2017 [facility] History of tobacco use TOBACCO REFUSED SCREEN V15 12/21/2016 [facility] History of tobacco use CURRENT TOBACCO USER 06/05/2016 [facility] History of tobacco use TOBACCO OFFERED STOP SMOKING CLINIC 02/02/2016 [facility] History of tobacco use CURRENT TOBACCO USER 05/28/2015 [facility] Plan of Care List of future care activities from Department of [facility] Affairs facilities. Additional future care activities may be listed in the Assessment and Plan section. Date/Time Care Activity Care Activity Detail Facili ty 09/15/2024 AMBULATORY - PSYCHIATRY AMBULATORY - PSYC HIATRY [facility]
--- OUTSIDE RECORDS SUMMARY | 2024-07-19 13:01 | XMS_ITS | Encounter Summary ---
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 Date/Time Encounter Type Encounter Description Reason Provider Source Apr 23, 2024 10:00 AM OFFICE O/P EST MOD 30 MIN PRIMARY CARE/MEDICINE ICD-10-CM F33.9 Major depressive disorder, recurrent, unspecified TASIA RIVERA Sarah Encounter Template Text not used by CT Assessments - Encounter Diagnoses This section includes the primary and secondary diagnoses documented for the Encounter. Date/Time Primary/Secondary Diagnosis Diagnosis Name Provider Source Apr 23, 2024 10:24 AM PRIMARY Major depressive disorder, recurrent, unspecified TASIA RIVERA S Allen [facility] Apr 23, 2024 10:24 AM SECONDARY Essential (primary) hypertension TASIA RIVERA S [facility] Apr 23, 2024 10:24 AM SECONDARY Idiopathic progressive neuropathy TASIA RIVERA S [facility] Apr 23, 2024 10:24 AM SECONDARY Multiple sclerosis TASIA RIVERA S 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 Apr 23, 2024 10:24 AM SECONDARY Tobacco use TASIA RIVERA S [facility] Plan of Treatment: Future Appointments (+ 6 months) and Future Tests (+/- 45 days) The Plan of Treatment section includes future care activities for the [facility] This section includes future appointments and future orders which are active, pending or scheduled. Future Appointments This section includes appointments that were scheduled to occur 6 months from the date of the Encounter, up to a maximum of 20 appointments. The data comes from all CT treatment facilities. Appointment Date/Time Appointment Type Appointme nt Facility Name May 05, 2024 11:00 AM AMBULATORY - MEDICINE [facility] May 05, 2024 01:30 PM AMBULATORY - MEDICINE [facility] May 06, 2024 11:00 AM AMBULATORY - MEDICINE [facility] May 17, 2024 09:00 AM AMBULATORY - NONE [facility] May 23, 2024 07:30 AM AMBULATORY - NONE [facility] June 16, 2024 11:00 AM AMBULATORY - PSYCHIATRY [facility] July 02, 2024 01:30 PM AMBULATORY - NONE [facility] Sep 15, 2024 09:30 AM AMBULATORY - PSYCHIATRY [facility] Lab Results: +/- 30 days of the encounter This section includes the Chemistry and Hematology Lab Results on record with CT for the patient. Radiology Reports and Pathology Reports are provided separately, in subsequent sections. Lab Results This section contains the Chemistry/Hematology Results that were resulted 30 days before or 30 daysafter the date of the Encounter. Date/Time Source Result Type Result - Unit Interpretation Reference Range Specimen Type Comment Apr 23, 2024 04:19 PM [facility] HGA1C BLOOD Specimen Type: BLOOD No comment entered. Ordering Provider: DELMA RIVERA Report Released Date/Time: Apr 23, 2024 10:16 AM Reporting Lab: [facility] [address] [facility] [address] [address] Performing Lab: [place] [address] [facility] [address] HGA1C 5.5 4.0-6.0 Apr 23, 2024 04:19 PM [facility] LIPID PANEL (STL) PLASMA Specimen Ty pe: PLASMA No comment entered. Ordering Provider: DELMA RIVERA Report Released Date/Time: Apr 23, 2024 10:16 AM Reporting Lab: [facility] [address] Performing Lab: [place] [address] [facility] [address] CHOLESTEROL 235 mg/dL H 0-200 TRIGLYCERIDE 246 mg/dL H 0-150 CALCULATED LDL 149 mg/dL HDL(New) 37 mg/dL L >40 Apr 23, 2024 04:19 PM [facility] PROST. SPECIFIC AG.(PB-STL) SERUM Specimen Ty pe: SERUM Comment: The listed sex of this patient may not be a typical indication for this test. Therefore, reference ranges or interpretive criteria listed may not be valid. Clinical correlation suggested. Ordering Provider: DELMA RIVERA Report Released Date/Time: Apr 23, 2024 10:16 AM Reporting Lab: [place] [address] [facility] [address] Performing Lab: [place] [address] [facility] [address] PROST. SPECIFIC AG.(PB-STL) 0.355 ng/mL 0-4 Apr 23, 2024 04:19 PM [facility] TSH W/ REFLEX FT4 (STL) PLASMA Speci men Type: PLASMA No comment entered. Ordering Provider: DELMA RIVERA Report Released Date/Time: Apr 23, 2024 10:16 AM Reporting Lab: [facility] [address] Performing Lab: [place] [address] [facility] [address] TSH 2.066 u[IU]/mL 0.47-5 Apr 23, 2024 04:19 PM [facility] VITAMIN D, 25-HYDROXY SERUM Specimen Type: SE RUM Comment: The listed sex of this patient may not be a typical indication for this test. Therefore, reference ranges or interpretive criteria listed may not be valid. Clinical correlation suggested. Ordering Provider: DELMA RIVERA Report Released Date/Time: Apr 23, 2024 10:16 AM Reporting Lab: [facility] [address] [place] [phone] Performing Lab: [address] [address] VITAMIN D, 25-HYDROXY 28.0 ng/mL L 30-96 Apr 23, 2024 04:18 PM [facility] CD19, B CELL PANEL BLOOD Specimen Type: BLOOD No comment entered. Ordering Provider: AYDEN WHALEN Report Released Date/Time: Apr 09, 2024 11:41 AM Reporting Lab: [address] [address] Performing Lab: [address] CD,19 B CELLS(STL) 0 {cells}/uL L 110-660 LYMPHOCYTES-SO 1274 {cells}/uL 850-3900 CD19 Percentage 0 L 6-29 Apr 23, 2024 04:01 PM [facility] IGG (STL) PLASMA Specimen Type: PLASM A Comment: No hemolysis noted. Ordering Provider: AYDEN WHALEN Report Released Date/Time: Apr 09, 2024 11:41 AM Reporting Lab: [address] [address] Performing Lab: [address] [address] IGG (STL) 767 mg/dL 540-1822 Apr 23, 2024 04:01 PM [facility] COMPREHENSIVE METABOLIC PANEL PLASMA Specimen Type: PLASMA Comment: No hemolysis noted. Ordering Provider: AYDEN WHALEN Report Released Date/Time: Apr 09, 2024 11:41 AM Reporting Lab: [address] [address] Performing Lab: [address] [address] CREATININE 0.91 mg/dL 0.7-1.3 UREA NITROGEN 13.5 [...] 97.1 >60 Apr 23, 2024 04:01 PM [facility] CBC BLOOD Specimen Type: BLOOD No comment entered. Ordering Provider: AYDEN WHALEN Report Released Date/Time: Apr 09, 2024 11:41 AM Reporting Lab: [facility] [address] [facility] [address] Performing Lab: [place] [address] [facility] [address] WBC 8.1 10*3/uL 3.6-11.2 RBC 5.54 10*6/uL [...] 0.60 BASOPHILS, ABSOLUTE 0.06 10*3/uL 0.00-0. 20 Vital Signs: All taken on the encounter date This section contains inpatient and outpatient Vital Signs collected on the date of the Encounter. Date/Time Temperature Pulse Blood Pressure Respiratory Rate SP02 Pain Height Weight Body Mass Index Source Apr 23, 2024 10:10 AM 125/81 [facility] Apr 23, 2024 10:06 AM 98.1 66 138/93 [address] [facility] Social History: Smoking Status (Most current) and Tobacco Use (All prior to encounter date) This section includes the most current, and the historical, smoking and tobacco- related health factors from the CT facility where the Encounter took place. Current Smoking Status This section includes the most current smoking, or tobacco-related health factor, from the CT facility where the Encounter took place. Date/Time Current Smoking Status Comment Facil ity Dec 02, 2019 08:30 AM VA-TOBACCO USER EVERY DAY [facility] Tobacco Use History This section includes a history of the smoking, or tobacco-related health factors, that were collected on or before the date of the Encounter. The data comes from the CT facility where the Encounter took place. Date/Time Smoking Status/Tobacco Use Comment F acility Dec 02, 2019 08:30 AM VA-TOBACCO USE [address] [facility] Dec 02, 2019 08:30 AM VA-TOBACCO USE ADVICE 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 Dec 02, 2019 08:30 AM VA-TOBACCO USE MED NO [facility] Dec 02, 2019 08:30 AM VA-TOBACCO USE [place] [address] [facility] Dec 02, 2019 08:30 AM VA-TOBACCO USER EVERY DAY [facility] Jun 03, 2018 02:31 PM TOBACCO MEDS OFFER ED BUT DECLINED [facility] Jun 03, 2018 02:31 PM VA-TOBACCO DOESNT USE WI [address] [facility] Jun 03, 2018 02:31 PM VA-TOBACCO USE [address] [facility] Jun 03, 2018 02:31 PM VA-TOBACCO USE ADVICE 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 Jun 03, 2018 02:31 PM VA-TOBACCO USE MED NOTIFY PROVIDER Dr. Rivera [facility] Jun 03, 2018 02:31 PM VA-TOBACCO USER EVERY DAY [facility] Aug 16, 2017 09:26 AM CURRENT TOBACCO USER [facility] Aug 16, 2017 09:26 AM CURRENT TOBACCO US ER (NOT READY TO QUIT) [facility] Aug 16, 2017 09:26 AM TOBACCO CESSATION REFERRAL DECLINED [facility] Aug 16, 2017 09:26 AM TOBACCO OFFERED PT MEDS (PROVIDER) [facility] Aug 16, 2017 09:26 AM TOBACCO USER OFFERED MEDS [facility] Dec 21, 2016 01:51 PM TOBACCO REFUSED SCREEN V15 [facility] Jun 05, 2016 09:03 AM [facility] Jun 05, 2016 09:03 AM TOBACCO MEDS OFFER ED BUT DECLINED [facility] May 28, 2015 10:47 AM CURRENT TOBACCO USER [facility] May 28, 2015 10:47 AM TOBACCO MEDS OFFER ED BUT DECLINED [facility] Radiology Reports: +/- 30 days of the [...] the Encounter. The data comes from all CT treatment facilities. Date/Time Radiology Report Provider Source May 23, 2024 06:59 AM MRI SPINE CERVICAL W/O&W CONT: PALAKAYDENKIRBY MERRITT [id number] -[id number] M Ex Date: MAY 23, 2024@06:59 Req Phys: AYDEN WHALEN Loc: [facility] (Req'g Loc) Img Loc: [facility] Service: Unknown [address] [address] (Case [id number] COMPLETE) MRI SPINE CERVICAL W/O&W CONT (MRI Detailed) CPT:25323 Contrast Media : unspecified contrast media Reason for Study: assess ms lesions and activity Clinical History: Has this patient had a plain film x-ray of this associated spine within the past 6 months? No If the above answer is no, please order an x-ray of the associated spine along with the MRI. These studies will be performed during the same patient encounter. Date of plain film x-ray performed? Apr Does your patient have an implanted device or hardware? (Any prosthesis, implant, shrapnel or bullet fragments) No Does your patient have any of the following (Please check all that apply) [ ] Pacemaker [ ] AICD [ ] Neuro-stimulator [ ] Bone Growth Stimulator [ ] Pain Pump [ ] Insulin Pump [ ] Cochlear Implant [ ] Ocular Implant [ ] Aneurysm Clip [ ] Vascular Clip Any other type of implant, please explain Does your patient have a Coronary Stent: No Does your patient have a an artificial Heart Valve: No Were any of the following intravascular implanted devices inserted less than 6 weeks ago: Stent No IVC Filter No Embolization Coils No Is your patient's weight >350lbs or abdominal and shoulder width >60cm? No Does your patient have Renal Failure, Chronic or Acute Renal Disease? No If ordering a contrasted enhanced MRI, you will be required to complete the order for creatine eGFR which is located at the bottom of the MRI ordering screen. If your patient is 60 years or older, the patient will need a recent eGFR within 30 days prior to the exam. NOTE: Incorrectly answering these questions may result in a delay in the procedure. A patient with a device or implant does not automatically mean the patient cannot receive an MRI. If your patient will have difficulty with a confined space, the provider will be responsible for ordering a sedation prior to the procedure, or to order an alternative procedure. In the event this patient needs referred to Community Care: Does this patient have mobility issues that will require additional assistance at the imaging center? No If yes, please provide specifics: Does this patient require an open bore MRI due to claustrophobia? No Has a close bore MRI with oral sedation been tried? No This order requests: With and Without Contrast Report Status: Verified Date Reported: MAY 23, 2024 Date Verified: MAY 23, 2024 Application Support Manager E-Sig:/ES/EMILY MONTEMAYOR Report: INDICATION: assess ms lesions and activity COMPARISON: 06/16/2022. TECHNIQUE: MRI cervical spine without and with intravenous contrast FINDINGS: Motion artifact limits evaluation. No suspicious marrow replacing lesion. Artifact limits evaluation of spinal cord signal. Small foci of abnormal T2 bright signal scattered in the spinal cord appear grossly unchanged allowing for differences in imaging technique. For reference on the right at C5. No abnormal spinal cord enhancement. The level degenerative intervertebral disc space height loss, discogenic changes, and mild listhesis has not significantly progressed. Uncovertebral hypertrophy and facet arthropathy asymmetric on the right is redemonstrated. C2-C3: Right-sided neuroforaminal stenosis. Caliber of the central canal is grossly unchanged. C3-C4: Right greater than left neuroforaminal stenosis. Caliber of the central canal is grossly unchanged. C4-C5: Right-sided neuroforaminal stenosis. Caliber of the central canal unchanged. C5-C6: Right greater than left neuroforaminal stenosis. Caliber of the central canal is grossly unchanged. C6-C7: Right-sided neuroforaminal stenosis. Caliber of the central canal is grossly unchanged. C7-T1: Caliber of the neuroforamina and central canal grossly unchanged. Impression: Abnormal T2 bright signal in the spinal cord consistent with clinical history of multiple sclerosis appears grossly unchanged allowing for differences in imaging technique. No MR evidence for acute demyelination in the spinal cord. Multilevel degenerate disc disease has not significantly progressed since June 2022. Primary Interpreting Staff: EMILY MONTEMAYOR, RADIOLOGIST (Application Support Manager) /EMILY SEGURA [facility] May 23, 2024 06:58 AM MRI BRAIN W&W/O CONTRAST-P: AYDEN CID [id number] -[id number] M Ex Date: MAY 23, 2024@06:58 Req Phys: AYDEN WHALEN Loc: [facility] (Req'g Loc) [facility] [place] Loc: [facility] Service: [address] [address] (Case [id number] COMPLETE) MRI BRAIN W/O&W CONT (MRI Detailed) CPT:78434 Contrast Media : unspecified contrast media Reason for Study: assess ms lesions and activity (Case [id number] COMPLETE) MRI 3D RENDERING W/O INDEPENDENT (MRI Detailed) CPT:32402 Clinical History: Responsible Attending: ayden whalen Attending Contact Number: [phone] Resident Contact Number: Does your patient have an implanted device or hardware? (Any prosthesis, implant, shrapnel or bullet fragments) No Does your patient have any of the following (Please check all that apply) [ ] Pacemaker [ ] AICD [ ] Neuro-stimulator [ ] Bone Growth Stimulator [ ] Pain Pump [ ] Insulin Pump [ ] Cochlear Implant [ ] Ocular Implant [ ] Aneurysm Clip [ ] Vascular Clip Any other type of implant, please explain Does your patient have a Coronary Stent: No Does your patient have a an artificial Heart Valve: No Were any of the following intravascular implanted devices inserted less than 6 weeks ago:
Stent No IVC Filter No Embolization Coils No Is your patient's weight >350lbs or abdominal and shoulder width >60cm? No Does your patient have Renal Failure, Chronic or Acute Renal Disease? No If ordering a contrasted enhanced MRI, you will be required to complete the order for creatine eGFR which is located at the bottom of the MRI ordering screen. If your patient is 60 years or older, the patient will need a recent eGFR within 30 days prior to the exam. NOTE: Incorrectly answering these questions may result in a delay in the procedure. A patient with a device or implant does not automatically mean the patient cannot receive an MRI. If your patient will have difficulty with a confined space, the provider will be responsible for ordering a sedation prior to the procedure, or to order an alternative procedure. In the event this patient needs referred to Community Care: Does this patient have mobility issues that will require additional assistance at the imaging center? No If yes, please provide specifics: Does this patient require an open bore MRI due to claustrophobia?No Has a close bore MRI with oral sedation been tried? No This order requests: With and Without Contrast Report Status: Verified Date Reported: MAY 23, 2024 Date Verified: MAY 23, 2024 Application Support Manager E-Sig:/ES/EMILY MONTEMAYOR Report: , [id number] INDICATION: assess ms lesions and activity COMPARISON: 06/15/2023. TECHNIQUE: MRI brain without and with intravenous contrast using multiple sclerosis protocol. FINDINGS: Multiple T2 lesions in the white matter are grossly unchanged in size and number given differences in imaging technique. Several lesions are associated with T1 hypointense signal. No abnormal diffusion restriction. No abnormal intracranial enhancement. Inflammatory changes in the paranasal sinuses. Chronic lacunar infarcts in the basal ganglia are redemonstrated. Intracranial atrophy has not significantly progressed. Impression: Multiple T2 lesions in the white matter consistent with clinical history of multiple sclerosis are grossly unchanged in size and number given differences in imaging technique. No active demyelination. Primary Interpreting Staff: EMILY MONTEMAYOR, RADIOLOGIST (Application Support Manager) /EMILY SEGURA [facility] May 17, 2024 08:41 AM LDCT LUNG CANCER SCREENING-OUTSIDE: AYDEN CID [id number] -[id number] Ex Date: MAY 17, 2024@08:41 Req Phys: DELMA RIVERA Loc: [facility] (Req'g Loc) Img Loc: [facility] Service: [address] [address] (Case [id number] COMPLETE) LDCT LUNG CANCER SCREENING-OUTSID(CT Detailed) CPT:20893 Reason for Study: tobacco use Clinical History: [...] pack-year smoking history? True Patient is current smoker? True Patient has quit within the past 15 years. [...] Cancer Screening on this outside of the [facility]. Furthermore, I agree to follow the Radiologist's recommendations and I am accepting professional responsibility for the further follow-up and management of the [place] as needed. Yes, I agree to the above statement. Report Status: Verified Date Reported: MAY 19, 2024 Date Verified: MAY 19, 2024 Application Support Manager E-Sig:/ES/ANGELA BLOOM MD Report: EXAM: LDCT LUNG CANCER SCREENING-OUTSIDE COMPARISON: 11/05/2023 PROTOCOL: Screening protocol, low dose, non-contrast CT chest was performed at the local CT facility in accordance with Lung-Rads 2022. Additional coronal and sagittal reconstructions. MIP reconstructions were reviewed. Secondary computer-aided detection post-processing used. INDEX NODULE: OTHER NODULES: Stable LUNG/AIRWAY/PLEURA FINDINGS: The lungs and central airways are unremarkable. MEDIASTINUM: No significant mediastinal adenopathy VISUAL CORONARY ARTERY CALCIFICATIONS: No UPPER ABDOMEN: No significant pathology requiring further workup or follow-up. This examination has been performed using a low-dose technique which limits the ability to detect nonpulmonary pathology BONES, SOFT TISSUES, AND ADDITIONAL FINDINGS: Unremarkable. (The term unremarkable may include spondylotic changes typical for patient age) Impression: LUNG-RADS: 2: Benign. RECOMMENDATION: One year Low-dose lung cancer screening CT recommended if patient meets criteria LUNG-RADS MODIFIER: N/A. Primary Interpreting Staff: ANGELA BLOOM MD, Radiologist (Application Support Manager) /CPG ANGELA BLOOM [facility] Encounter Notes: All associated encounter notes This section contains the clinical notes associated to the Encounter. Date/Time Encounter Note(s) Provider Source Apr 23, 2024 10:11 AM PRIMARY CARE NOTE: LOCAL TITLE: PRIMARY CARE PROVIDER ESTABLISHED VISIT ST[facility] STANDARD TITLE: PRIMARY CARE NOTE DATE OF NOTE: APR 23, 2024@10:11 ENTRY DATE: APR 23, 2024@10:11:28 AUTHOR: DELMA RIVERA: URGENCY: STATUS: COMPLETED ESTABLISHED PATIENT [id number]: REASON FOR VISIT/CHIEF COMPLAINT: HPI:. just got over influenza A. smokes 1 ppd. doing ctld declines adjuncts. htn: no issues drop foot no change. mult sclerosis no change. on rituximab. depression: seeing dr Jay. ed: no bebeto. WHAT IS YOUR GOAL FOR TODAY? SOURCE(S) OF HISTORY: Patient PAST MEDICAL HISTORY: 1) Depression 2) Tobacco use comment: 1.5 [...] of drug therapy 16) Inflamed seborrhoeic keratosis FAMILY HISTORY: Reviewed and unchanged. SOCIAL HISTORY: NICOTINE:1 ppd. ILLICIT DRUGS:none ALCOHOL:none ALLERGIES: Patient has answered NKA ALLERGY REVIEW: Allergy list reviewed and remains current. MEDICATIONS: Active and Recently Outpatient Medications (excluding Supplies): Active Outpatient Medications Status 1) BACLOFEN 10MG TAB TAKE ONE TABLET BY MOUTH THREE TIMES A DAY ACTIVE Indication: FOR SPASTICITY 2) BUPROPION HCL 150MG 24HR SA TAB TAKE THREE TABLETS BY MOUTH ACTIVE ONCE A DAY SWALLOW WHOLE - DO NOT CRUSH OR CHEW. Indication: FOR DEPRESSION 3) DULOXETINE HCL 60MG EC CAP TAKE ONE CAPSULE BY MOUTH ONCE A ACTIVE DAY DO NOT ABRUPTLY DISCONTINUE MEDICATION. Indication: [...] A ACTIVE DAY Indication: FOR DAYTIME SLEEPINESS Inactive Outpatient Medications Status 1) MODAFINIL 200MG TAB TAKE ONE-HALF TABLET BY MOUTH TWICE A DAY Indication: FOR DAYTIME SLEEPINESS Active Non-VA Medications Status 1) Non-VA CHOLECALCIF 125MCG (D3-5,000UNIT) CAP 5000UNIT BY ACTIVE MOUTH ONCE A DAY 2) Non-VA CYANOCOBALAMIN 500MCG TAB 500MCG BY MOUTH ONCE A DAY ACTIVE 3) Non-VA HYDROCODONE 7.5/ACETAMINOPHEN 325MG TAB 1 TABLET BY ACTIVE MOUTH EVERY 6 HOURS NEEDED 10 Total Medications MEDICATION RECONCILIATION: I have reviewed the patient's medication list with the patient and/or his/her care-corpsman. Handwritten corrections, additions and/or deletions were made to the list. Corrected Outpatient Medication List was provided to the patient/caregiver. REVIEW OF SYSTEMS: General: Normal Ears, Nose, Mouth, Throat: Normal Eye: Normal Cardiovascular: Normal Respiratory: Normal ABD/GI: Normal Musculoskeletal/Extremities: Normal /TILE PICKER: Normal Hematology & Lymph: Normal Endocrine: Normal Skin: Normal PHYSICAL EXAMINATION: General appearance:nad VITALS (most recent, as listed in the electronic record): Temperature: 98.1 F [36.7 C] (04/23/2024 10:06) BP: 125/81 (04/23/2024 10:10) Pulse: 66 (04/23/2024 10:06) Resp: 20 (04/23/2024 10:06) PulsOx: 96% (04/23/2024 10:06) Pain: 6 (04/23/2024 10:06) Weight: Measurement DT WEIGHT LB(KG)[BMI] 04/23/2024 10:06 258(117.03)[36*] 09/28/2023 14:09 269(122.02)[38*] 04/30/2023 10:51 266.9(121.06)[37*] Ears, Nose, Mouth, Throat: Normal. Eye: Normal sclera Normal PERRLA Cardiovascular: S1 S2 Nl. Respiratory: Clear ABD/GI: Normal. Extremities: Normal /TILE PICKER: Deferred Hematology & Lymph: Normal Endocrine: Normal Psych: Normal Neuro: Normal. CN 2-12 WNL. Strength 4/4 all ext Reflexes 2+ x 4. Skin: Normal. DATA REVIEW: HGA1C 5.6 % 04/26/2020 09:03 Lipid Panel: No LIPID PANEL EO data found ======== CMP: SODIUM 138 mEq/L 04/30/2023 10:41 POTASSIUM 3.7 [...] 10:41 EGFR (CKD-EPI 2020) 96.4 04/30/2023 10:41 ========= CBC: WBC 11.8 H 10*3/uL 04/30/2023 10:41 RBC 5.59 10*6/uL 04/30/2023 10:41 HGB 16.3 g/dL 04/30/2023 10:41 HCT 47.9 % 04/30/2023 10:41 MCV 85.7 fL 04/30/2023 10:41 MCH 29.2 pg 04/30/2023 10:41 MCHC 34.0 g/dL 04/30/2023 10:41 RDW 13.3 % 04/30/2023 10:41 PLT 338 10*3/uL 04/30/2023 10:41 MPV 9.9 fL 04/30/2023 10:41 NEUTROPHILS, AUTO % 73 % 11/06/2022 10:26 LYMPHOCYTES, AUTO % 17 % 11/06/2022 10:26 MONOCYTES, AUTO % 8 % 11/06/2022 10:26 EOSINOPHILS, AUTO % 1 % 11/06/2022 10:26 BASOPHILS, AUTO % 1 % 11/06/2022 10:26 NEUTROPHILS, ABSOLUTE 6.39 10*3/uL 11/06/2022 10:26 LYMPHOCYTES, ABSOLUTE 1.48 10*3/uL 11/06/2022 10:26 MONOCYTES, ABSOLUTE 0.72 10*3/uL 11/06/2022 10:26 EOSINOPHILS, ABSOLUTE 0.08 10*3/uL 11/06/2022 10:26 BASOPHILS, ABSOLUTE 0.05 10*3/uL 11/06/2022 10:26 NEUTROPHILS 78.1 % 04/30/2023 10:41 LYMPHOCYTES 12.3 % 04/30/2023 10:41 MONOCYTES 5.3 % 04/30/2023 10:41 EOSINOPHILS 0.9 % 04/30/2023 10:41 BASOPHILS 1.7 % 04/30/2023 10:41 ATYPICAL LYMPHOCYTES 1.7 % 04/30/2023 10:41 PROST. SPECIFIC AG.(PB-STL) 0.237 ng/mL 04/26/2020 09:03 TSH: No TSH (1YR) EO data found ========= VITAMIN D, 25-HYDROXY 29.6 L ng/mL 04/30/2023 10:41 VITAMIN D, 25-HYDROXY 57.9 ng/mL 11/06/2022 10:26 VITAMIN D, 25-HYDROXY 49.0 ng/mL 04/26/2020 09:03 INR: No INR EO data found UA: No URINALYSIS EO data found IM - IMMUNIZATIONS ADMINISTERED Immunization Series Date Facility Reaction Info INFLUENZA, SPLIT VIRUS, QUADRIVA* 12/11/[facility] INFLUENZA, SPLIT VIRUS, QUADRIVA* 11/15/2016 [facility] INFLUENZA, UNSPECIFIED FORMULATI* Private P* PNEUMOCOCCAL CONJUGATE PCV 13 12/06/2015 [facility] PNEUMOCOCCAL POLYSACCHARIDE PPV23 12/21/2016 [facility] TDAP 12/21/2016 [facility] <C> CONTRAINDICATED No data available REFUSED ======= Immunization Date Facility Info COVID-19 (MODERNA), MRNA, LNP-S,* 09/28/2023 [facility] <I> COVID-19 (MODERNA), MRNA, LNP-S,* 03/13/2023 [facility] <I> INFLUENZA, UNSPECIFIED FORMULATI* 03/13/2023 [facility] <I> PNEUMOCOCCAL POLYSACCHARIDE PPV23 09/28/2023 [facility] <I> ZOSTER RECOMBINANT 09/28/2023 [facility] <I> <C> See the Detailed Immunizations Health Summary Component[DIM] for Comments <I> See the Detailed Immunizations Health Summary Component[DIM] for Additional Information * Value is truncated; see the Detailed Immunizations Health Summary Component[DIM] for complete text ST - SKIN TESTS No data available Result: Acceptable Follow-up Action: Re check prior to next visit. Data results reviewed with patient and/or caregiver. ASSESSMENT/PLAN: 1. mult sclerosis on rituxan. cct 2. Hyperlipidemia: pt counseled regarding hyperlipidemia, it's causes and need for treatment. Patient denies myopathy or other issues with medication. Counseled to continue to follow a low cholesterol diet. 3. Hypertension: pt counseled regarding hypertension, it's causes and the need for tight blood pressure control (120/80 or less). Continue current therapy. Check blood pressure and pulse twice daily and record the readings. Reduce sodium intake through dietary changes. 4. Depression: patient counseled regarding depression. Patient denies any suicidal or homicical ideations. Medication use, risks, side effects were discussed. Shared decision making occurred. 5. Tobacco use: the risk of lung cancer was discussed. Adjuncts for cessation were offered. The lung cancer screening from ages 50 -[address] were offered to patient. Risk of COPD were discussed. 6. Patient is obese. Patient was counseled on dietary modification, Offered a referral to a theatrical rigger and possibly board machine set up operator. 7. vit d def cct 8. foot drop right leg. declines brace. RETURN TO CLINIC: 12 months. SUMMARY STATEMENT: Plan of care has been discussed with including expected therapeutic benefits and potential side effects of prescribed medication and treatments. [place] verbalizes understanding and is in agreement with the plan of care. Patient was instructed to keep all scheduled appointments and contact general doc for any additional problems. PREVENTION & SCREENING: ALCOHOL: Clinical Reminder not due now or within a month COLORECTAL CANCER: Clinical Reminder not due now or within a month BLOOD PRESSURE: Clinical Reminder not due now or within a month HEMOGLOBIN A1C: Clinical Reminder not due now or within a month Initial Lung Cancer Screen (Provider): No clinical exclusions, patient is a current candidate for the lung cancer screening program. Patient agrees to lung cancer screening. Lung cancer screening information provided and low dose CT will be ordered. Patient currently uses cigarettes and does not want assistance with smoking cessation at this time. COVID-19 Immunization - L,N,P,PH,U: Refused Moderna Monovalent COVID-19 vaccine Immunization: COVID-19 (MODERNA), MRNA, LNP-S, PF, 50 MCG/0.5 ML (AGES 12+ YEARS) Refusal Reason: PATIENT DECISION Patient refuses all immunization(s) in the COVID-19 group Date Documented: 04/23/24 10:22 Influenza Immunization - L,N,P,PH,U: Deferral / Refusal The patient declines to receive the recommended dose of seasonal influenza vaccine. Immunization: INFLUENZA, UNSPECIFIED FORMULATION Refusal Reason: PATIENT DECISION Patient refuses all immunization(s) in the FLU group Date Documented: 04/23/24 10:22 Depression Monitoring (PHQ-9) - M,N,P,PH,PS,R,S,T: PHQ-9 A PHQ-9 screen was performed. The score was 0. 1. Little interest or pleasure in doing things Not at all 2. Feeling down, depressed, or hopeless Not at all 3. Trouble falling or staying asleep, or sleeping too much Not at all 4. Feeling tired or having little energy Not at all 5. Poor appetite or overeating Not at all 6. Feeling bad about yourself or that you are a failure or have let yourself or your family down Not at all 7. Trouble concentrating on things, such as reading the newspaper or watching television Not at all 8. Moving or speaking so slowly that other people could have noticed. Or the opposite being so fidgety or restless that you have been moving around a lot more than usual Not at all 9. Thoughts that you would be better off or of hurting yourself in some way Not at all 10. If you checked off any problems, how DIFFICULT have these problems made it for you to do your work, take care of things at home or get along with other people? Not difficult at all 's PHQ-9 score did NOT IMPROVE from the most recent score Follow-up interval: Number of months until follow-up: Assess Statin Use - Lipids (CVD/DM) - N,P,PH: The patient is already on a statin. The patients prescription for a statin was reviewed and updated. Ischemic HD/Post [place] Follow Up: Patient is taking aspirin from a non-[facility] source. Pneumococcal PPSV23 (Pneumovax) - L,N,P,PH,U: The patient declines to receive the recommended dose of PPSV23 vaccine. Immunization: PNEUMOCOCCAL POLYSACCHARIDE PPV23 Refusal Reason: PATIENT DECISION Patient refuses all immunization(s) in the PneumoPPV group Date Documented: 04/23/24 10:23 [facility]VC DIGITAL DIVIDE CAPABILITY REMINDER: 'S RIGHT TO DECLINE STATEMENT [place] understands they have the right to decline the use of [employer] at any time without adverse affects on their continued access to healthcare. /gifty/ DELMA RIVERA MD STAFF PHYSICIAN Signed: 04/23/2024 10:24 DELMA RIVERA [facility] Apr 23, 2024 10:08 AM NURSING NOTE: LOCAL TITLE: V15 PACT FACE TO FACE NOTE ST STANDARD TITLE: NURSING NOTE DATE OF NOTE: APR 23, 2024@10:08 ENTRY DATE: APR 23, 2024@10:08:43 AUTHOR: MATTHEW SANCHES COSIGNER: URGENCY: STATUS: COMPLETED Provider Visit: Patient Identifiers : Full Name Date of Reason for visit: Established Follow-Up Mode of Arrival: Ambulatory Allergy Review: Patient has answered NKA Allergy list reviewed and remains current. Recent Vital Signs: Temperature: 98.1 F [36.7 C] (04/23/2024 10:06) Pulse: 66 (04/23/2024 10:06) Respiration: 20 (04/23/2024 10:06) B/P: 138/93 (04/23/2024 10:06) Pain: 6 (04/23/2024 10:06) Wt: 258 lb [117.03 kg] (04/23/2024 10:06) Ht: 71 in [180.3 cm] (12/11/2018 11:28) BMI: 36.1 POX: 96% (04/23/2024 10:06) PERSONAL HEALTH INVENTORY Notes: No data available for PHI note titles PERSONAL HEALTH INVENTORY - MAP: Personal Health Inventory (Short) 12/11/2018 [facility] What Do You Live For I live for my family and God. What really matters to me is my family, peace, the world. I want my health for to be active w/my family, and not be a burden. What brings me rubi and happiness is life in general, waking-up, playing the guitar. [facility] 09/28/2023 Personal Health Plan [place], Aspiration, Purpose (MAP) health, family, and safety What matters most to you in your life right now? [place]'s Response: my life my health Would you like to discuss any personal problem, family problem, alcohol use, drug use, or a mental or emotional illness? No My [facility] ([facility]), please select appointment type: Face to face: Yes- Done Contact provided Primary Care phone number and encouraged to call if any questions or concerns. Review that after hours nurse line [phone] and emergency room are available 04/09 for patient use. Contact verbalized good understanding. No notification required for this note. HTN Assess for Elevated BP>=140/90 - N,P,PH: Repeat blood pressure: 125/81 /es/ MATTHEW SANCHES Licensed Practical Nurse Signed: 04/23/2024 10:12 [facility]
--- OUTSIDE RECORDS SUMMARY | 2024-07-19 13:01 | XMS_ITS | Encounter Summary ---
Author Name [facility] Organization [facility] Address [address] [place] [id number] Care Team Providers Care Service Employee Name Role Phone DELMA RIVERA Primary Care Provider Unavailab le Selected Encounter This section includes the information on record at [place] for the Encounter. Date/Time Encounter Type Encounter Description Reason Provider Source Sep 28, 2023 02:00 PM OFFICE O/P EST MOD 30 MIN PRIMARY CARE/MEDICINE ICD-10-CM F33.9 Major depressive disorder, recurrent, unspecified SIMMERING,TASIA S E Encounter Template Text not used by [place] Assessments - Encounter Diagnoses This section includes the primary and secondary diagnoses documented for the Encounter. Date/Time Primary/Secondary Diagnosis Diagnosis Name Provider Source Sep 28, 2023 02:50 PM PRIMARY Major depressive disorder, recurrent, unspecified SIMMERING,TASIA S . [facility] Sep 28, 2023 02:50 PM SECONDARY Essential (primary) hypertension SIMMERING,TASIA S [facility] Sep 28, 2023 02:50 PM SECONDARY Foot drop, right foot SIMMERING,TASIA S [facility] Sep 28, 2023 02:50 PM SECONDARY Inflamed seborrheic keratosis SIMMERING,TASIA S [facility] Sep 28, 2023 02:50 PM SECONDARY Major depressive disorder, recurrent, moderate SIMMERING,TASIA S [facility] Sep 28, 2023 02:50 PM SECONDARY Multiple sclerosis SIMMERING,TASIA S [facility] Sep 28, 2023 02:50 PM SECONDARY [facility] [place] [facility] drug therapy TASIA RIVERA [facility] Sep 28, 2023 02:50 PM SECONDARY Pain in unspecified knee TASIA RIVERA [facility] Sep 28, 2023 02:50 PM SECONDARY Tobacco use TASIA RIVERA [facility] Plan of Treatment: Future Appointments (+ 6 months) and Future Tests (+/- 45 days) The Plan of Treatment section includes future care activities for the patient [facility] [place] [facility] This section includes future appointments and future orders which are active, pending or scheduled. Future Appointments This section includes appointments that were scheduled to occur 6 months from the date of the Encounter, up to a maximum of 20 appointments. The data comes from all [facility]. Appointment Date/Time Appointment Type Appointme nt Facility Name Nov 05, 2023 11:00 AM AMBULATORY - MEDICINE [facility] Nov 05, 2023 11:30 AM AMBULATORY - MEDICINE [facility] Nov 05, 2023 02:00 PM AMBULATORY - NONE [facility] Mar 20, 2024 09:30 AM AMBULATORY - PSYCHIATRY [facility] Active, Pending, and Scheduled Orders This section includes a listing of several types of active, pending, and scheduled orders, including clinic medications orders, diagnostic test orders, procedure orders and consult orders; where the start date of the order is 45 days before the date of the Encounter or 45 days after the date of theEncounter. The data comes from all [facility]. Test Date/Time Test Type Test Details Facility Name Sep 28, 2023 12:00 AM Laboratory - Chemi stry Order COMPREHENSIVE METABOLIC PANEL GREEN LI/HEP BLD/PLAS PLASMA SP [facility] Sep 28, 2023 12:00 AM Laboratory - Chemi stry Order LIPID PANEL (STL) GREEN LI/HEP BLD/PLAS PLASMA SP ONCE [facility] Sep 28, 2023 12:00 AM Laboratory - Chemi stry Order CBC BLOOD SP [facility] Sep 28, 2023 12:00 AM Laboratory - Chemi stry Order HGA1C BLOOD SP [facility] Sep 28, 2023 12:00 AM Laboratory - Chemi stry Order URINALYSIS (STL-PB) URINE [facility] Sep 28, 2023 12:00 AM Laboratory - Chemi stry Order PROST. SPECIFIC AG.(PB-STL) GOLD/RED SST SERUM [facility] Sep 28, 2023 12:00 AM Laboratory - Chemi stry Order TSH W/ REFLEX FT4 (STL) GREEN LI-HEP PLASMA [facility] Sep 28, 2023 12:00 AM Laboratory - Chemi stry Order VITAMIN D, 25-HYDROXY GOLD/RED SST SERUM [facility] Sep 28, 2023 12:00 AM Laboratory - Chemi stry Order B12 GOLD/RED SST SERUM [facility] Sep 28, 2023 12:00 AM Laboratory - Chemi stry Order URINE DRUG SCREEN (STL) URINE COLLECTION TUBE [facility] Sep 28, 2023 12:00 AM Laboratory - Chemi stry Order CYSTATIN C EGFR PANELS (STL-PB-MA) GREEN LI/HEP BLD/PLAS PLASMA [facility] Sep 28, 2023 12:00 AM Laboratory - Chemi stry Order OCCULT BLOOD FIT X1 SCREEN STOOL FECES [facility] Vital Signs: All taken on the encounter date This section contains inpatient and outpatient Vital Signs collected on the date of the Encounter. Date/Time Temperature Pulse Blood Pressure Respiratory Rate SP02 Pain Height Weight Body Mass Index Source Sep 28, 2023 02:17 PM 140/90 [facility] Sep 28, 2023 02:09 PM 97.8 97 155/101 20 96 0 269 38 [facility] Social History: Smoking Status (Most current) and Tobacco Use (All prior to encounter date) This section includes the most current, and the historical, smoking and tobacco- related health factors from the [place] facility where the Encounter took place. Current Smoking Status This section includes the most current smoking, or tobacco-related health factor, from the [place] facility where the Encounter took place. Date/Time Current Smoking Status Comment Facil ity Dec 02, 2019 08:30 AM VA-TOBACCO USER EVERY DAY [facility] Tobacco Use History This section includes a history of the smoking, or tobacco-related health factors, that were collected on or before the date of the Encounter. The data comes from the [place] facility where the Encounter took place. Date/Time Smoking Status/Tobacco Use Comment F acility Dec 02, 2019 08:30 AM VA-TOBACCO USE 30 YEARS OR MORE [facility] Dec 02, 2019 08:30 AM VA-TOBACCO USE ADVICE [facility] Dec 02, 2019 08:30 AM VA-TOBACCO USE WATER RESOURCE AGENT NO [facility] Dec 02, 2019 08:30 AM VA-TOBACCO USE MED NO [facility] Dec 02, 2019 08:30 AM VA-TOBACCO USE WI 30 MIN OF WAKEUP [facility] Dec 02, 2019 08:30 AM VA-TOBACCO USER EVERY DAY [facility] Jun 03, 2018 02:31 PM TOBACCO MEDS OFFER ED BUT DECLINED [facility] Jun 03, 2018 02:31 PM VA-TOBACCO DOESNT USE WI 30 MIN WAKEUP [facility] Jun 03, 2018 02:31 PM VA-TOBACCO USE 30 YEARS OR MORE [facility] Jun 03, 2018 02:31 PM VA-TOBACCO USE ADVICE [facility] Jun 03, 2018 02:31 PM VA-TOBACCO USE WATER RESOURCE AGENT NO [facility] Jun 03, 2018 02:31 PM VA-TOBACCO USE MED NOTIFY PROVIDER Dr. Rivera [facility] Jun 03, 2018 02:31 PM VA-TOBACCO USER EVERY DAY [facility] Aug 16, 2017 09:26 AM CURRENT TOBACCO USER [facility] Aug 16, 2017 09:26 AM CURRENT TOBACCO US ER (NOT READY TO QUIT) [facility] Aug 16, 2017 09:26 AM TOBACCO CESSATION REFERRAL DECLINED [facility] Aug 16, 2017 09:26 AM TOBACCO OFFERED PT MEDS (PROVIDER) [facility] Aug 16, 2017 09:26 AM TOBACCO USER OFFERED MEDS [facility] Dec 21, 2016 01:51 PM TOBACCO REFUSED SCREEN V15 [facility] Jun 05, 2016 09:03 AM CURRENT TOBACCO USER [facility] Jun 05, 2016 09:03 AM TOBACCO MEDS OFFER ED BUT DECLINED [facility] May 28, 2015 10:47 AM CURRENT TOBACCO USER [facility] May 28, 2015 10:47 AM TOBACCO MEDS OFFER ED BUT DECLINED [facility] Encounter Notes: All associated encounter notes This section contains the clinical notes associated to the Encounter. Date/Time Encounter Note(s) Provider Source Sep 28, 2023 02:31 PM PRIMARY CARE NOTE: LOCAL TITLE: PRIMARY CARE PROVIDER ESTABLISHED VISIT [facility] STANDARD TITLE: PRIMARY CARE NOTE DATE OF NOTE: SEP 28, 2023@14:31 ENTRY DATE: SEP 28, 2023@14:31:46 AUTHOR: DELMA RIVERA COSIGNER: URGENCY: STATUS: COMPLETED ESTABLISHED PATIENT [id number]: REASON FOR VISIT/CHIEF COMPLAINT: HPI: tobacco 1 ppd. still with drop foot. mult slcerosis on ritoxib. overall about the same. htn: no issues. WHAT IS YOUR GOAL FOR TODAY? SOURCE(S) [...] 15) Long-term current use of drug therapy FAMILY HISTORY: Reviewed and unchanged. SOCIAL HISTORY: NICOTINE:1 ppd. ILLICIT DRUGS:none ALCOHOL:none ALLERGIES: Patient has answered NKA ALLERGY REVIEW: Allergy list reviewed and remains current. MEDICATIONS: Active and Recently Outpatient Medications (excluding Supplies): Active Outpatient Medications Status 1) BUPROPION HCL 150MG 24HR SA TAB [...] A DAY FOR BLOOD PRESSURE 4) LOSARTAN 50MG TAB TAKE ONE-HALF TABLET BY MOUTH ONCE ACTIVE A DAY TO LOWER BLOOD PRESSURE Inactive Outpatient Medications Status 1) LORAZEPAM 0.5MG TAB TAKE ONE TABLET BY MOUTH ONCE A DAY NEEDED FOR ANXIETY 2) MODAFINIL 200MG TAB TAKE ONE-HALF TABLET BY MOUTH TWICE A DAY FOR DAYTIME SLEEPINESS Active Non-VA Medications Status 1) Non-VA CHOLECALCIF 125MCG (D3-5,000UNIT) CAP 5000UNIT ACTIVE BY MOUTH ONCE A DAY 2) Non-VA CYANOCOBALAMIN 500MCG TAB 500MCG BY MOUTH ONCE ACTIVE A DAY 3) Non-VA HYDROCODONE 7.5/ACETAMINOPHEN 325MG TAB 1 ACTIVE TABLET BY MOUTH EVERY 6 HOURS NEEDED 9 Total Medications MEDICATION RECONCILIATION: I have reviewed the patient's medication list with the patient and/or his/her care-senior caregiver. Handwritten corrections, additions and/or deletions were made to the list. Corrected Outpatient Medication List was provided to the patient/caregiver. REVIEW OF SYSTEMS: General: Normal Ears, Nose, Mouth, Throat: Normal Eye: Normal Cardiovascular: Normal Respiratory: Normal ABD/GI: Normal Musculoskeletal/Extremities: Normal /SCOWMAN: Normal Hematology & Lymph: Normal Endocrine: Normal Skin: Normal PHYSICAL EXAMINATION: General appearance:nad VITALS (most recent, as listed in the electronic record): Temperature: 97.8 F [36.6 C] (09/28/2023 14:09) BP: 140/90 (09/28/2023 14:17) Pulse: 97 (09/28/2023 14:09) Resp: 20 (09/28/2023 14:09) PulsOx: 96% (09/28/2023 14:09) Pain: 0 (09/28/2023 14:09) Weight: Measurement DT WEIGHT LB(KG)[BMI] 09/28/2023 14:09 269(122.02)[38*] 04/30/2023 10:51 266.9(121.06)[37*] Ears, Nose, Mouth, Throat: Normal. Eye: Normal sclera Normal PERRLA Cardiovascular: S1 S2 Nl. Respiratory: Clear ABD/GI: Normal. Extremities: Normal /SCOWMAN: Deferred Hematology & Lymph: Normal Endocrine: Normal [...] BASOPHILS, AUTO % 1 % 11/06/2022 10:26 IMMATURE GRANS, AUTO % 0.6 % 10/24/2021 10:20 NEUTROPHILS, ABSOLUTE 6.39 10*3/uL 11/06/2022 10:26 LYMPHOCYTES, ABSOLUTE 1.48 10*3/uL 11/06/2022 10:26 MONOCYTES, ABSOLUTE 0.72 10*3/uL 11/06/2022 10:26 EOSINOPHILS, ABSOLUTE 0.08 10*3/uL 11/06/2022 10:26 BASOPHILS, ABSOLUTE 0.05 10*3/uL 11/06/2022 10:26 IMMATURE GRANS, AUTO ABS 0.05 10*3/uL 10/24/2021 10:20 NEUTROPHILS 78.1 % 04/30/2023 10:41 LYMPHOCYTES 12.3 [...] Private P* PNEUMOCOCCAL CONJUGATE PCV 13 12/06/2015 [facility] PNEUMOCOCCAL POLYSACCHARIDE PPV23 12/21/2016 [facility] TDAP 12/21/2016 [facility] <C> CONTRAINDICATED No data available REFUSED ======= Immunization Date Facility Info COVID-19 (MODERNA), MRNA, LNP-S,* 03/13/2023 [facility] <I> INFLUENZA, UNSPECIFIED FORMULATI* 03/13/2023 . [...] with patient and/or caregiver. ASSESSMENT/PLAN: 1. mult sclerosis. 2. htn increase to 50 mg losartan 3. hld cct 4. tobacco use check ct ld 5. vit d def RETURN TO CLINIC: 6 months. SUMMARY STATEMENT: Plan of care has been discussed with including expected therapeutic benefits and potential side effects of prescribed medication and treatments. [place] verbalizes understanding and is in agreement with the plan of care. Patient was instructed to keep all scheduled appointments and contact marketing and public relations manager for any additional problems. PREVENTION & SCREENING: ALCOHOL: Clinical Reminder not due now or within a month COLORECTAL CANCER: Clinical Reminder not due now or within a month BLOOD PRESSURE: Clinical Reminder not due now or within a month HEMOGLOBIN A1C: Clinical Reminder not due now or within a month Cystatin C with eGFR Screen: The patient has a condition that may benefit from obtaining a Cystatin C test for accurate assessment of renal function. Cystatin C w/eGFR ordered for renal assessment. COVID-19 Immunization: Refused Moderna Monovalent COVID-19 vaccine Immunization: COVID-19 (MODERNA), MRNA, LNP-S, PF, 50 MCG/0.5 ML (AGES 12+ YEARS) Refusal Reason: PATIENT DECISION Patient refuses all immunization(s) in the COVID-19 group Date Documented: 09/28/23 14:48 Avg Risk Colorectal Cancer Screen: AVERAGE RISK colorectal cancer screening is due based on information available to this clinical reminder FOBT/FIT (Fecal Immunochemical Testing) has been ordered. See order tab for details. Influenza Immunization: No influenza vaccination was received during the recent influenza season. Prior Approval/Non-formulary Drug: MEDICATION USE EVALUATION /es/ DELMA RIVERA MD STAFF PHYSICIAN Signed: 09/28/2023 14:50 DELMA RIVERA [facility] Sep 28, 2023 02:12 PM NURSING NOTE: LOCAL TITLE: V15 PACT FACE TO FACE NOTE STL STANDARD TITLE: NURSING NOTE DATE OF NOTE: SEP 28, 2023@14:12 ENTRY DATE: SEP 28, 2023@14:12:56 AUTHOR: MATTHEW SANCHES COSIGNER: URGENCY: STATUS: COMPLETED Provider Visit: Patient Identifiers : Full Name Date of Reason for visit: Established Follow-Up Mode of Arrival: Assistive Device: cane Allergy Review: Patient has answered NKA Allergy list reviewed and remains current. Recent Vital Signs: Temperature: 97.8 F [36.6 C] (09/28/2023 14:09) Pulse: 97 (09/28/2023 14:09) Respiration: 20 (09/28/2023 14:09) B/P: 155/101 (09/28/2023 14:09) Pain: 0 (09/28/2023 14:09) Wt: 269 lb [122.02 kg] (09/28/2023 14:09) Ht: 71 in [180.3 cm] (12/11/2018 11:28) BMI: 37.6 POX: 96% (09/28/2023 14:09) PERSONAL HEALTH INVENTORY Notes: No data available for PHI note titles PERSONAL HEALTH INVENTORY - MAP: 12/11/2018 Phis What Do You Live For I live for my family and God. What really matters to me is my family, peace, the world. I want my health for to be active w/my family, and not be a burden. What brings me rubi and happiness is life in general, waking-up, playing the guitar. What matters most to you in your life right now? [place]'s Response: health, family, and safety Would you like to discuss any personal problem, family problem, alcohol use, drug use, or a mental or emotional illness? No My [facility] ([facility]), please select appointment type: Face to face: Yes- Done Contact provided Primary Care phone number and encouraged to call if any questions or concerns. Review that after hours nurse line [phone] and emergency room are available 04/09 for patient use. Contact verbalized good understanding. No notification required for this note. Suicide Screen: C-SSRS Screening [place]-Suicide Severity Rating Scale (C-SSRS Screener) 1. Over [...] required due to responses to other questions. Toxic Exposure Screening: The /caregiver was asked if they believe the [place] experienced any toxic exposure(s), such as Airborne Hazards and Open [place], [place] [employer] related exposures, Agent [place], Radiation, contaminated water at [place] or other such exposures, while serving in the [employer]. has no concerns about toxic exposure(s) while serving in the [employer]. The /caregiver was informed that we will continue to ask this screening question every 5 years. They can contact their provider/healthcare team if they have concerns about exposures and would like to be screened sooner. Printed information was offered and provided if desired. Alcohol Use Screen (AUDIT-C): Alcohol Screen: SCREEN FOR ALCOHOL (AUDIT-C) An alcohol screening test (AUDIT-C) was negative (score=1). 1. How often did you have a drink containing alcohol in the past year? Consider a drink to be a 12 ounce can or bottle of regular beer, 8 ounces of malt liquor, a 5 ounce glass of table wine, or a 1.5 ounce shot of liquor (like scotch, gin, or vodka). Monthly or less 2. How many drinks containing alcohol did you have on a typical day when you were drinking in the past year? One or two drinks 3. How often did you have six or more drinks on one occasion in the past year? Never Herpes Zoster (Shingles) Vaccine: The patient declines to receive the recommended dose of zoster (shingles) vaccine. Immunization: ZOSTER RECOMBINANT Refusal Reason: PATIENT DECISION Patient refuses all immunization(s) in the ZOSTER group Date Documented: 09/28/23 14:15 Pneumococcal PPSV23 (Pneumovax): The patient declines to receive the recommended dose of PPSV23 vaccine. Immunization: PNEUMOCOCCAL POLYSACCHARIDE PPV23 Refusal Reason: PATIENT DECISION Patient refuses all immunization(s) in the PneumoPPV group Date Documented: 09/28/23 14:15 /gifty/ MATTHEW SANCHES Licensed Practical Nurse Signed: 09/28/2023 14:16 MATTHEW SANCHES [facility]
--- OUTSIDE RECORDS SUMMARY | 2024-07-19 13:02 | XMS_ITS | Encounter Summary ---
Author Name [facility] Organization [facility] Address [address] [place] [address] Care Team Providers Care Wildlife Conservation Professor Name Role Phone DELMA DAY Primary Care Provider Unavailab le Selected Encounter This section includes the information on record at OR for the Encounter. Date/Time Encounter Type Encounter Description Reason Provider Source May 01, 2024 02:32 PM [facility] DIG ASSMT&MGMT 5-10 CLINICAL PHARMACY ICD-10-CM G35 Multiple sclerosis NAE MELO Encounter Template Text not used by OR Assessments - Encounter Diagnoses This section includes the primary and secondary diagnoses documented for the Encounter. Date/Time Primary/Secondary Diagnosis Diagnosis Name Provider Source May 01, 2024 05:26 PM PRIMARY Multiple sclerosis BONI MELO [facility] Plan of Treatment: Future Appointments (+ 6 months) and Future Tests (+/- 45 days) The Plan of Treatment section includes future care activities for the patient from all OR treatmentfacilities. This section includes future appointments and future orders which are active, pending or scheduled. Future Appointments This section includes appointments that were scheduled to occur 6 months from the date of the Encounter, up to a maximum of 20 appointments. The data comes from all OR treatment facilities. Appointment Date/Time Appointment Type Appointme nt Facility Name May 05, 2024 11:00 AM AMBULATORY - MEDICINE [facility] May 05, 2024 01:30 PM AMBULATORY - MEDICINE [facility] May 06, 2024 11:00 AM AMBULATORY - MEDICINE [facility] May 17, 2024 09:00 AM AMBULATORY - NONE [facility] May 23, 2024 07:30 AM AMBULATORY - NONE [facility] June 16, 2024 11:00 AM AMBULATORY - PSYCHIATRY [facility] July 02, 2024 01:30 PM AMBULATORY - NONE [facility] Sep 15, 2024 09:30 AM AMBULATORY - PSYCHIATRY [facility] Oct 27, 2024 10:30 AM AMBULATORY - MEDICINE [facility] Lab Results: +/- 30 days of the [...] Type Comment Apr 23, 2024 04:19 PM [facility] HGA1C BLOOD Specimen Type: BLOOD No comment entered. Ordering Provider: DELMA DAY Report Released Date/Time: Apr 23, 2024 10:16 AM Reporting Lab: [facility] [address] [facility] [address] Performing Lab: [address] [address] HGA1C 5.5 4.0-6.0 Apr 23, 2024 04:19 PM [facility] LIPID PANEL (STL) PLASMA Specimen Ty pe: PLASMA No comment entered. Ordering Provider: DELMA DAY Report Released Date/Time: Apr 23, 2024 10:16 AM Reporting Lab: [facility] [address] [facility] [address] Performing Lab: [address] [address] CHOLESTEROL 235 mg/dL H 0-200 TRIGLYCERIDE 246 mg/dL H 0-150 CALCULATED LDL 149 mg/dL HDL(New) 37 mg/dL L >40 Apr 23, 2024 04:19 PM [facility] PROST. SPECIFIC AG.(PB-STL) SERUM Specimen Ty pe: SERUM Comment: The listed sex of this patient may not be a typical indication for this test. Therefore, reference ranges or interpretive criteria listed may not be valid. Clinical correlation suggested. Ordering Provider: DELMA DAY Report Released Date/Time: Apr 23, 2024 10:16 AM Reporting Lab: [place] [address] [facility] [address] Performing Lab: [address] [address] PROST. SPECIFIC AG.(PB-STL) 0.355 ng/mL 0-4 Apr 23, 2024 04:19 PM [facility] TSH W/ REFLEX FT4 (STL) PLASMA Speci men Type: PLASMA No comment entered. Ordering Provider: DELMA DAY Report Released Date/Time: Apr 23, 2024 10:16 AM Reporting Lab: [facility] [address] [facility] [address] Performing Lab: [place] [address] [facility] [address] TSH 2.066 u[IU]/mL 0.47-5 Apr 23, 2024 04:19 PM [facility] VITAMIN D, 25-HYDROXY SERUM Specimen Type: SE RUM Comment: The listed sex of this patient may not be a typical indication for this test. Therefore, reference ranges or interpretive criteria listed may not be valid. Clinical correlation suggested. Ordering Provider: DELMA DAY Report Released Date/Time: Apr 23, 2024 10:16 AM Reporting Lab: [facility] [address] [facility] [address] Performing Lab: [address] [address] VITAMIN D, 25-HYDROXY 28.0 ng/mL L 30-96 Apr 23, 2024 04:18 PM [facility] CD19, B CELL PANEL BLOOD Specimen Type: BLOOD No comment entered. Ordering Provider: AYDEN WHALEN Report Released Date/Time: Apr 09, 2024 11:41 AM Reporting Lab: [facility] [address] [place] [phone] Performing Lab: [facility] [address] [facility] CD,19 B CELLS(STL) 0 {cells}/uL L 110-660 LYMPHOCYTES-SO 1274 {cells}/uL 850-3900 CD19 Percentage 0 L 6-29 Apr 23, 2024 04:01 PM [facility] IGG (STL) PLASMA Specimen Type: PLASM A Comment: No hemolysis noted. Ordering Provider: AYDEN WHALEN Report Released Date/Time: Apr 09, 2024 11:41 AM Reporting Lab: [address] [address] Performing Lab: [address] [address] IGG (STL) 767 mg/dL 540-1822 Apr 23, 2024 04:01 PM [facility] COMPREHENSIVE METABOLIC PANEL PLASMA Specimen Type: PLASMA Comment: No hemolysis noted. Ordering Provider: AYDEN WHALEN Report Released Date/Time: Apr 09, 2024 11:41 AM Reporting Lab: [address] [address] Performing Lab: [address] [address] CREATININE 0.91 mg/dL 0.7-1.3 UREA NITROGEN 13.5 [...] 97.1 >60 Apr 23, 2024 04:01 PM [facility] CBC BLOOD Specimen Type: BLOOD No comment entered. Ordering Provider: AYDEN WHALEN Report Released Date/Time: Apr 09, 2024 11:41 AM Reporting Lab: [facility] [address] [facility] [address] Performing Lab: [facility] [address] [facility] [address] WBC 8.1 10*3/uL 3.6-11.2 RBC 5.54 10*6/uL [...] and tobacco- related health factors from the OR facility where the Encounter took place. Current Smoking Status This section includes the most current smoking, or tobacco-related health factor, from the OR facility where the Encounter took place. Date/Time Current Smoking Status Comment Facil ity Feb 02, 2016 06:02 PM TOBACCO OFFERED [facility] SMOKING CLINIC [facility] Tobacco Use History This section includes a history of the smoking, or tobacco-related health factors, that were collected on or before the date of the Encounter. The data comes from the OR facility where the Encounter took place. Date/Time Smoking Status/Tobacco Use Comment F patricia Feb 02, 2016 06:[address] [facility] SMOKING CLINIC [facility] Radiology Reports: +/- 30 days of [...] the Encounter. The data comes from all OR treatment facilities. Date/Time Radiology Report Provider Source May 23, 2024 06:59 AM MRI SPINE CERVICAL W/O&W CONT: AYDEN CID [id number] -[id number] M Exm Date: MAY 23, 2024@06:59 Req Phys: AYDEN WHALEN Pat Loc: [facility] (Req'g Loc) Img Loc: [facility] Service: Unknown [address] [address] (Case [id number] COMPLETE) MRI SPINE CERVICAL W/O&W CONT (MRI Detailed) CPT:06184 Contrast Media : unspecified contrast media Reason [...] 23, 2024 Date Verified: MAY 23, 2024 Paleontological Helper E-Sig:/ES/EMILY MONTEMAYOR Report: INDICATION: assess ms lesions [...] 2022. Primary Interpreting Staff: EMILY MONTEMAYOR, RADIOLOGIST (Paleontological Helper) /EMILY SEGURA [facility] May 23, 2024 06:58 AM MRI BRAIN W&W/O CONTRAST-P: AYDEN CID [id number] -[id number] Ex Date: MAY 23, 2024@06:58 Req Phys: AYDEN WHALEN Loc: [facility] (Req'g Loc) Im Loc: [facility] Service: [address] [address] (Case [id number] COMPLETE) MRI BRAIN W/O&W CONT (MRI Detailed) CPT:20804 Contrast Media : unspecified contrast media Reason for Study: assess ms lesions and activity (Case [id number] COMPLETE) MRI 3D RENDERING W/O INDEPENDENT (MRI Detailed) CPT:81482 Clinical History: Responsible Attending: ayden whalen Attending Contact Number: [phone] Resident Contact Number: Does your patient have [...] 23, 2024 Date Verified: MAY 23, 2024 Paleontological Helper E-Sig:/ES/EMILY MONTEMAYOR Report: , [id number] INDICATION: assess ms lesions and activity COMPARISON: [...] demyelination. Primary Interpreting Staff: EMILY MONTEMAYOR, RADIOLOGIST (Paleontological Helper) /EMILY SEGURA [facility] May 17, 2024 08:41 AM LDCT LUNG CANCER SCREENING-OUTSIDE: AYDEN CID [id number] -[id number] M Exm Date: MAY 17, 2024@08:41 Req Phys: DELMA DAY Loc: [facility] (Req'g Loc) Img Loc: [facility] Service: Unknown [facility], [address] [place] [address] (Case [id number] COMPLETE) LDCT LUNG CANCER SCREENING-OUTSID(CT Detailed) CPT:28592 Reason for Study: tobacco use Clinical History: [...] ordering the Lung Cancer Screening on this [place] outside of the [facility] Lung Cancer Screening Program. Furthermore, I agree to follow the Radiologist's recommendations and I am accepting professional responsibility for the further follow-up and management of the as needed. Yes, I agree to the above statement. Report Status: Verified Date Reported: MAY 19, 2024 Date Verified: MAY 19, 2024 Paleontological Helper E-Sig:/ES/ANGELA BLOOM MD Report: EXAM: LDCT LUNG CANCER SCREENING-OUTSIDE COMPARISON: 11/05/2023 PROTOCOL: Screening protocol, low dose, non-contrast CT chest was performed at the local OR facility in accordance with Lung-Rads 2021. Additional coronal and sagittal reconstructions. MIP reconstructions [...] Primary Interpreting Staff: ANGELA BLOOM MD, Radiologist (Paleontological Helper) /ANGELA VERDE [facility] Encounter Notes: All associated encounter notes This section contains the clinical notes associated to the Encounter. Date/Time Encounter Note(s) Provider Source May 01, 2024 02:32 PM HEMATOLOGY AND ONCOLOGY CLINICAL PHARMACIST NOTE: LOCAL TITLE: CHEMOTHERAPY PHARMACIST PLAN OF CARE [facility] STANDARD TITLE: HEMATOLOGY AND ONCOLOGY CLINICAL PHARMACIST NOTE DATE OF NOTE: MAY 01, 2024@14:32 ENTRY DATE: MAY 01, 2024@14:32:33 AUTHOR: ROMY MELO COSIGNER: URGENCY: STATUS: COMPLETED Patient Name: AYDEN CID Patient Age: 59 Patient Sex: MALE Patient Height: 71 in [180.3 cm] (12/11/2018 11:28) Patient Weight: 258 lb [117.03 kg] (04/23/2024 10:06) BSA: 2.42 m2 [place] Diagnosis: Multiple Sclerosis Comorbidities: Depression, HTN, arthritis, peripheral neuropathy ALLERGIES: Patient has answered NKA Pertinent Laboratory: WBC 8.1 10*3/uL (04/23/24 16:01) HGB 16.1 g/dL 04/23/2024 16:01 PLT 341 10*3/uL 04/23/2024 16:01 NEUTROPHILS, ABSOLUTE 5.97 10*3/uL 04/23/2024 16:01 POTASSIUM: 4.1 mEq/L 04/23/2024 16:01 CALCIUM: 9.4 mg/dL (04/23/24 16:01) TSH: TSH 2.066 uIU/mL 04/23/2024 16:19 CREATININE 0.91 mg/dL 04/23/2024 16:01 EGFR (CKD-EPI 2020) 97.1 04/23/2024 16:01 Creatinine Clearance: ~ 100 mL/min [] CG actual BW [] CG IBW [X] CG adjusted BW [] MDRD HEPATIC FUNCTION PROFILE: AKP: 101 (04/23/24 16:01) ALB: 4.4 (04/23/24 16:01) GOT/AST: 29 (04/23/24 16:01) GPT/ALT: 26 (04/23/24 16:01) T.Prot: 7.3 (04/23/24 16:01) TBIL: 0.4 (04/23/24 16:01) Collection time: Nov 01, 2018@09:13 Test Name Result Units Range --------- ------ ----- ----- HBSAG Nonreactive Ref: NEGATIVE B CORE Nonreactive Ref: Nonreactive Active medication list reviewed for actionable drug interactions: Yes o No major actionable drug interaction identified on review Therapy Plan: rituximab-pvvr 500mg q6 months Therapy start date: initiated 05/2017, next infusion 05/05/2024 Planned number of cycles: indefinite Laboratory or Other Tests Related to therapy: CBC prior to each treatment or within 6 months and 6 month intervals during therapy CMP as Above Hepatitis B screen (both HEPATITIS B SURFACE Antigen(AUSAg)and HEP B CORE AB TOTAL BLOOD SERUM SP) prior to initiating treatment Dosing Guidelines/Parameters : Premedication/Antiemetic Orders: 1st Drug: Methylprednisolone Dose: 125mg Route: IVP Frequency: Day 1 2nd Drug: Acetaminophen Dose: 1000mg Route: PO Frequency: Day 1 3rd Drug: Diphenhydramine Dose: 25 mg Route: PO Frequency: Day 1 Therapy Orders: 1st Drug: Rituximab-pvvr Total Dose: 500 mg Route: IVPB IVPB in NS 250 mL over 60 minutes Frequency: Day 1 Cycle to be repeated: every 24 weeks If grade 3 or 4 reaction, titrate according to package insert If tolerated and has been less than/equal to 9 months since last rituximab infusion may start each cycle at the increased infusion rate. Hold treatment and call Attending MD/TRAVEL REGISTERED NURSE PACU for: - Infusion or hypersensitivity reactions (Shortness of breath, hypotension, itching, rash, sweating, anaphylaxis) Time spent reviewing chart/speaking with provider:10 minutes PBM PharmD Pharmacotherapy Rem V12: PHARMACIST INTERVENTIONS: RHEUMATOLOGY Medication monitoring, no dosage change required, continue to monitor and assess /gifty/ Romy Melo PharmD, BCPS, BCOP Oncology Clinical Manager Mail Signed: 05/01/2024 17:27 Receipt Acknowledged By: 05/05/2024 07:22 /es/ KALE ARIAS PHARMD, BCOP Program Meteorologist Liaison (Heme/Onc) 05/02/2024 07:31 /es/ Keyla Pereira PharmD Clinical Staff Pharmacist 05/02/2024 08:42 /es/ AMBROSE YANEZ Pharmacist ROMY MELO [facility]
--- OUTSIDE RECORDS SUMMARY | 2024-07-19 13:02 | XMS_ITS | Encounter Summary ---
Author Name [facility] Organization [facility] [place] Address [address] [place] [address] Care Team Providers Care Stereo Compiler Name Role Phone DELMA DAY Primary Care Provider Unavailab le Selected Encounter This section includes the information on record at [place] for the Encounter. Date/Time Encounter Type Encounter Description Reason Provider Source Nov 05, 2023 11:30 AM ORAL PRESCRIP DRUG NON CHEMO CHEMOTHERAPY PROC. [facility]. ICD-10-CM Z51.11 Encounter for antineoplastic chemotherapy Dominic MCGREGOR Sarah Encounter Template Text not used by [place] Assessments - Encounter Diagnoses This section includes the primary and secondary diagnoses documented for the Encounter. Date/Time Primary/Secondary Diagnosis Diagnosis Name Provider Source Nov 05, 2023 02:36 PM PRIMARY Encounter for antineoplastic chemotherapy STACIA MCGREGOR [facility] Nov 05, 2023 02:36 PM SECONDARY Multiple sclerosis STACIA MCGREGOR [facility] Plan of Treatment: Future Appointments (+ 6 months) and Future Tests (+/- 45 days) The Plan of Treatment section includes future care activities for the patient from all [place] treatmentfacilities. This section includes future appointments and [...] 20, 2024 09:30 AM AMBULATORY - PSYCHIATRY [facility] Apr 23, 2024 10:00 AM AMBULATORY - MEDICINE [facility] Active, Pending, and Scheduled Orders This section includes a listing of several types of active, pending, and scheduled orders, including clinic medications orders, diagnostic test orders, procedure orders and consult orders; where the start date of the order is 45 days before the date of the Encounter or 45 days after the date of theEncounter. The data comes from all [facility]. Test Date/Time Test Type Test Details Facility Name Sep 28, 2023 12:00 AM Laboratory - Chemi stry Order COMPREHENSIVE METABOLIC PANEL GREEN LI/HEP BLD/PLAS PLASMA [facility] Sep 28, 2023 12:00 AM Laboratory - Chemi stry Order CBC BLOOD [facility] Sep 28, 2023 12:00 AM Laboratory - Chemi stry Order LIPID PANEL (STL) GREEN LI/HEP BLD/PLAS PLASMA SP ONCE [facility] Sep 28, 2023 12:00 AM Laboratory - Chemi stry Order HGA1C BLOOD [facility] Sep 28, 2023 12:00 AM Laboratory - Chemi stry Order URINALYSIS (STL-PB) URINE [facility] Sep 28, 2023 12:00 AM Laboratory - Chemi stry Order PROST. SPECIFIC AG.(PB-STL) GOLD/RED SST SERUM [facility] Sep 28, 2023 12:00 AM Laboratory - Chemi stry Order TSH W/ REFLEX FT4 (STL) GREEN LI-HEP PLASMA [facility] Sep 28, 2023 12:00 AM Laboratory - Chemi stry Order VITAMIN D, 25-HYDROXY GOLD/RED SST SERUM [facility] Sep 28, 2023 12:00 AM Laboratory - Chemi stry Order B12 GOLD/RED SST SERUM [facility] Sep 28, 2023 12:00 AM Laboratory - Chemi stry Order URINE DRUG SCREEN (STL) URINE COLLECTION TUBE [facility] Sep 28, 2023 12:00 AM Laboratory - Chemi stry Order CYSTATIN C EGFR PANELS (STL-PB-MA) GREEN LI/HEP BLD/PLAS PLASMA SP [facility] Sep 28, 2023 12:00 AM Laboratory - Chemi stry Order OCCULT BLOOD FIT X1 SCREEN STOOL FECES SP [facility] Lab Results: +/- 30 days of the [...] Type Comment Nov 05, 2023 12:01 PM [facility] IGG (STL) PLASMA Specimen Type: PLASMA No comment entered. Ordering Provider: KONSTANTIN WHALEN Report Released Date/Time: Nov 05, 2023 11:25 AM Reporting Lab: [facility] [address] [place] [phone] Performing Lab: [address] [phone] IGG (STL) 772 mg/dL [id number] Nov 05, 2023 12:01 PM [facility] CD19, B CELL PANEL BLOOD Specimen Type: BLOOD Comment: CD,19 B CELLS: 0 cells/uL Ordering Provider: KONSTANTIN WHALEN Report Released Date/Time: Nov 05, 2023 11:25 AM Reporting Lab: [facility] [address] [place] [phone] Performing Lab: [facility] [address] [place] [address] CD,19 B CELLS(STL) comment {cells}/uL 11 0-660 [...] 12:23 PM 97.8 87 138/89 20 97 [facility] Social History: Smoking Status (Most current) and Tobacco Use (All prior to encounter date) This section includes the most current, and the historical, smoking and tobacco- related health factors from the [place] facility where the Encounter took place. Current Smoking Status This section includes the most current smoking, or tobacco-related health factor, from the [place] facility where the Encounter took place. Date/Time Current Smoking Status Comment Yrn [email or web address] Feb 02, 2016 06:02 PM TOBACCO OFFERED [facility] SMOKING [facility] Tobacco Use History This section includes a history of the smoking, or tobacco-related health factors, that were collected on or before the date of the Encounter. The data comes from the [place] facility where the Encounter took place. Date/Time Smoking Status/Tobacco Use Comment F [email or web address] Feb 02, 2016 06:02 PM TOBACCO OFFERED [facility] SMOKING [facility] Radiology Reports: +/- 30 days of [...] the Encounter. The data comes from all [place] treatment facilities. Date/Time Radiology Report Provider Source Nov 05, 2023 02:04 PM LDCT LUNG CANCER SCREENING-OUTSIDE: KONSTANTIN WALLS [id number] -[id number] M Ex Date: NOV 05, 2023@14:04 Req Phys: DELMA DAY Loc: [facility] 1 PCP (Req'g Loc) Img Loc: [facility] Service: [address] [id number] (Case [id number] COMPLETE) LDCT LUNG CANCER SCREENING-OUTSID(CT Detailed) CPT:12465 Reason for Study: tobacco use Clinical History: [...] Cancer Screening on this outside of the [facility] Lung Cancer Screening Program. Furthermore, I agree to follow the Radiologist's recommendations and I am accepting professional responsibility for the further follow-up and management of the as needed. Yes, I agree to the above statement. Report Status: Verified Date Reported: NOV 06, 2023 Date Verified: NOV 06, 2023 Scrapper E-Sig:/ES/Aspen Friedman MD Report: EXAM: LDCT LUNG [...] Primary Interpreting Staff: Aspen Friedman MD, Radiologist (Scrapper) /ASPEN BROWN [facility] Encounter Notes: All associated encounter notes This section contains the clinical notes associated to the Encounter. Date/Time Encounter Note(s) Provider Source Nov 27, 2023 09:11 AM PHYSICIAN LETTERS: LOCAL TITLE: TEST RESULT GENERAL LETTER [facility] STANDARD TITLE: PHYSICIAN LETTERS DATE OF NOTE: NOV 27, 2023@09:11 ENTRY DATE: NOV 27, 2023@09:11:23 AUTHOR: DELMA ADY COSIGNER: URGENCY: STATUS: COMPLETED [facility] [address] [place] [address] NOV 27, 2023 KONSTANTIN WALLS [address] [place], [place] [address] Dear Konstantin Walls, I would like to update you on your recent test results. OTHER TEST RESULTS RADIOLOGY (NON-INVASIVE TEST RESULTS): your lung ct showed: Impression: LUNG-RADS [v2022]: 3. LUNG-RADS MODIFIER: None. MANAGEMENT RECOMMENDATION: Six-month follow-up low-dose chest CT OTHER FINDINGS: Old granulomatous changes. Mild emphysema. Mild arteriosclerosis. Note: A negative screening CT does not mean that an individual does not have lung cancer. re check in 6 months. PLAN Please continue your treatment as we discussed during your visit. If you have any questions please call your foster care case manager. I look forward to seeing you at your next clinic appointment. Thank you for choosing the [facility] for your healthcare. FUTURE APPOINTMENTS: 04/04/2024 11:00 [facility] PCP 04/21/2024 08:00 [facility] Sincerely, DELMA DAY MD STAFF PHYSICIAN KONSTANTIN WALLS [facility] Nov 05, 2023 02:32 PM HEMATOLOGY AND ONC OLOGY NURSING NOTE: LOCAL TITLE: [facility] CHEMOTHERAPY ST STANDARD TITLE: HEMATOLOGY AND ONCOLOGY NURSING NOTE DATE OF NOTE: NOV 05, 2023@14:32 ENTRY DATE: NOV 05, 2023@14:32:21 AUTHOR: SASKIA MCGREGOR EXP COSIGNER: URGENCY: STATUS: COMPLETED [facility] HEMATOLOGY/ONCOLOGY Patient Demographics Patient name:KONSTANTIN WALLS Date of :[birth year] Age:58 Social security number:[id number] Patient has answered NKA Patient Height:71 in [180.3 cm] (12/11/2018 11:28) Patient weight:269 lb [122.02 kg] (09/28/2023 14:09) Body Surface Area (BSA) = 2.472 Vital signs: BP:138/89 (11/05/2023 12:23) HR:87 (11/05/2023 12:23) R :20 (11/05/2023 12:23) T.:97.8 F [36.6 C] (11/05/2023 12:23) Pulse Oximetry:97% (11/05/2023 12:23) Pain:0 Recent Laboratory results: WBC: 11.8 10*3/uL H (04/30/23 10:41) HGB: HGB 16.3 g/dL 04/30/2023 10:41 HCT: 47.9 % (04/30/23 10:41) PLT: PLT 338 10*3/uL 04/30/2023 10:41 NEUT#: 0 ACETONE BUTTON PASTER: No CREATININE EO data found K+: POTASSIUM 3.7 mEq/L 04/30/2023 10:41 MAG: ____ PhospNo PHOSPHOROUS data found Calcium: 10.1 mg/dL (04/30/23 10:41) SGPT: 12 U/L (04/30/23 10:41) SGOT: 19 U/L (04/30/23 10:41) A.Phos:ALKALINE PHOSPHATASE 120 U/L 04/30/2023 10:41 Seen by MD/TWISTING MACHINE OPERATOR today: Yes KONSTANTIN WALLS is a 58 old patient with the diagnosis of multiple sclerosis presents to treatment room for chemotherapy. Comment:Patient presents for Rituxan, no new complaints. Patient arrive to clinic via:ambulatory Patient identified: Full name, social security number and date of , Patient [facility] card Chemotherapy Cycle:12 maintenance Nursing Assessment: *all yes answers require documentation in the comment campo* Psychosocial concerns No Nausea:No Vomiting:No Diarrhea:No Constipation:No date of last BM: Fatigue:Yes Neuropathy: Yes Medication education. Reviewed patient's understanding of sign and symptom of chemotherapy regimen. Patient verbalized understanding. Patient had previous treatments.Yes Patient verbalized understanding Chemotherapy Route of Administration: Peripheral IV placed left Antecubital 22 Intravenous Guage catheter, brisk blood return present, flushes without resistance. PRE-Medications: IV Medications: Methylprednisolone 125mg IVP Start:1230 Intravenous fluids 0.9% Normal Saline 500ml added IV to infuse concurrently with treatment Start:1230 end time:1400 PO Medication: Diphenhydramine 25mg PO: Time given 1230 Acetaminophen 1000mg PO: Time given 1230 Chemotherapy Infusion: Chemotherapy dosages verified per policy by two staff members prior to administration. Primary rail splitter:ISRRAEL Moreno Secondary rail splitter:ISRRAEL Grant The following chemotherapy medications infused in sequence: 1.Rituximab-pvvr 500 mg over 1 hour Start time 1300 End time 1400 Tolerated treatment well. Patient was observed during treatment and tolerated his chemotherapy infusion without sensitivity reaction. No complications occurred during the course of treatment. Patient denied any pain, nausea, shortness of breath or other distress during treatment. The patient's physical and mental status remains unchanged pre and post treatment. Post treatment IV evaluation IV access IV discontinued Pressure dressing applied Pt to return to clinic on: as scheduled Patient arrived:1200 Patient departed:1400 Comment:Patient tolerated treatment well, left ambulatory using cane with spouse. /gifty/ SASKIA MCGREGOR RN BSN REGISTERED NURSE Signed: 11/05/2023 14:36 Receipt Acknowledged By: 11/05/2023 15:27 /gifty/ MONTANA HUNT RN ADN [facility] REGISTERED NURSE SASKIA MCGREGOR [facility]
--- OUTSIDE RECORDS SUMMARY | 2024-07-19 13:02 | XMS_ITS ---
Author Name [facility] [place] [place] [facility] [place] Address [address] [place] [address] Care Team Providers Care Systems Tester Name Role Phone DELMA DAY Primary Care Provider Unavail le Selected Encounter This section includes the information on [place] at [place] for the Encounter. Date/Time Encounter Type Encounter Description Reason Provider Source June 16, 2024 11:00 AM OFFICE O/P EST MOD 30 MIN [facility] - IND ICD-10-CM F33.9 Major depressive disorder, recurrent, unspecified VIVIAN ABDI Sarah Encounter Template Text not used by [place] Assessments - Encounter Diagnoses This section includes the primary and secondary diagnoses documented for the Encounter. Date/Time Primary/Secondary Diagnosis Diagnosis Name Provider Source June 16, 2024 11:13 AM PRIMARY Major depressive disorder, recurrent, unspecified JIN,VIVIAN LOU [facility] June 16, 2024 11:13 AM SECONDARY Anxiety disorder, unspecified CABRERAARWALA,VIVIAN HASSUNDAY [facility] Plan of Treatment: Future Appointments (+ 6 months) and Future Tests (+/- 45 days) The Plan of Treatment section includes future care activities for the patient from all [place] treatmentfacilities. This section includes future appointments and future orders which are active, pending or scheduled. Future Appointments This section includes appointments that were scheduled to occur 6 months from the date of the Encounter, up to a maximum of 20 appointments. The data comes from all [place] treatment facilities. Appointment Date/Time Appointment Type Appointme nt Facility Name July 02, 2024 01:30 PM AMBULATORY - NONE . [facility] Sep 15, 2024 09:30 AM AMBULATORY - PSYCHIATRY [facility] Oct 27, 2024 10:30 AM AMBULATORY - MEDICINE [facility] Dec 08, 2024 09:00 AM AMBULATORY - MEDICINE [facility] Social History: Smoking Status (Most current) and Tobacco Use (All prior to encounter date) This section includes the most current, and the historical, smoking and tobacco- related health factors from the [place] facility where the Encounter took place. Current Smoking Status This section includes the most current smoking, or tobacco-related health factor, from the [place] facility where the Encounter took place. Date/Time Current Smoking Status Comment Facil ity Mar 20, 2024 09:30 AM VA-TOBACCO NEVER U SED OTHER TYPE [facility] Tobacco Use History This section includes a history of the smoking, or tobacco-related health factors, that were collected on or before the date of the Encounter. The data comes from the [place] facility where the Encounter took place. Date/Time Smoking Status/Tobacco Use Comment F acility Mar 20, 2024 09:30 AM VA-TOBACCO SCREEN FOLLOW-UP [facility] Mar 20, 2024 09:30 AM VA-TOBACCO USE ADVICE [facility] Mar 20, 2024 09:30 AM VA-TOBACCO USE MANUFACTURER'S SERVICE REPRESENTATIVE NO [facility] Mar 20, 2024 09:30 AM VA-TOBACCO USE JULIO RY DAY CIGARETTES [facility] Mar 20, 2024 09:30 AM VA-TOBACCO USE MED NO [facility] Mar 13, 2023 09:00 AM VA-TOBACCO USE 30 YEARS OR MORE [facility] Mar 13, 2023 09:00 AM VA-TOBACCO USE ADVICE [facility] Mar 13, 2023 09:00 AM VA-TOBACCO USE MANUFACTURER'S SERVICE REPRESENTATIVE NO [facility] Mar 13, 2023 09:00 AM VA-TOBACCO USE MED NO [facility] Mar 13, 2023 09:00 AM VA-TOBACCO USE WI 30 MIN OF WAKEUP [facility] Mar 13, 2023 09:00 AM VA-TOBACCO USER EVERY DAY [facility] Radiology Reports: +/- 30 days [...] the Encounter. The data comes from all [place] treatment facilities. Date/Time Radiology Report Provider Source July 02, 2024 12:59 PM MRI SPINE THORACIC W/O&W CONT: AYDEN CID [id number] -1965 M Exm Date: JULY 02, 2024@12:59 Req Phys: AYDEN WHALEN Pat Loc: [facility] (Req'g Loc) Img Loc: [facility] Service: Unknown [address] [address] (Case [id number] COMPLETE) MRI SPINE THORACIC W/O&W CONT (MRI Detailed) CPT:20313 Contrast Media : unspecified contrast media Reason [...] Date of plain film x-ray performed? Apr Responsible Attending: ayden whalen Attending Contact Number: [phone] Resident Contact Number: Does your patient have [...] Without Contrast Report Status: Verified Date Reported: JULY 08, 2024 Date Verified: JULY 08, 2024 Duct Maker E-Sig:/ES/EMILY MONTEMAYOR Report: INDICATION: assess ms lesions and activity COMPARISON: Cervical spine MRI 05/23/2024. TECHNIQUE: MRI thoracic spine without and with intravenous contrast FINDINGS: Localizer: Multilevel degenerative disc disease in the cervical spine is redemonstrated. Abnormal T2 hyperintense signal in the cervical spinal cord is redemonstrated. Thoracic spine: Multilevel endplate remodeling with Schmorl's node formation. There are multilevel mild appearing vertebral body compression deformities associated with endplate remodeling and Schmorl's node formation. Degenerative discogenic changes mildly indent the ventral thecal sac multiple levels. No suspicious marrow replacing lesion. Small foci of abnormal T2 hyperintense signal is seen scattered in the spinal cord. For reference abnormal T2 hyperintense signal in the spinal cord on the left at T1-T2. The conus is at T12-L1. The postcontrast images are degraded by patient motion artifact. No definite abnormal spinal cord enhancement. Impression: Small foci of abnormal T2 hyperintense signal scattered in the spinal cord consistent with clinical history of multiple sclerosis. No definite MR evidence for acute demyelination. Primary Interpreting Staff: EMILY MONTEMAYOR, RADIOLOGIST (Duct Maker) /EMILY SEGURA [facility] May 23, 2024 06:59 AM MRI SPINE CERVICAL W/O&W CONT: AYDEN CID RENÉ [id number] -1965 M Ex Date: MAY 23, 2024@06:59 Req Phys: AYDEN WHALEN Loc: [facility] (Req'g Loc) Img Loc: [facility] Service: [address] [address] (Case [id number] COMPLETE) MRI SPINE CERVICAL W/O&W CONT (MRI Detailed) CPT:33524 Contrast Media : unspecified contrast media Reason [...] 23, 2024 Date Verified: MAY 23, 2024 Duct Maker E-Sig:/ES/EMILY MONTEMAYOR Report: INDICATION: assess ms lesions [...] 2022. Primary Interpreting Staff: EMILY MONTEMAYOR, RADIOLOGIST (Duct Maker) /EMILY SEGURA [facility] May 23, 2024 06:58 AM MRI BRAIN W&W/O CONTRAST-P: AYDEN CID [id number] -1965 M Exm Date: MAY 23, 2024@06:58 Req Phys: AYDEN WHALEN [facility] Loc: [facility] (Req'g Loc) Img Loc: [facility] Service: Unknown [address] [address] (Case [id number] COMPLETE) MRI BRAIN W/O&W CONT (MRI Detailed) CPT:17948 Contrast Media : unspecified contrast media Reason for Study: assess ms lesions and activity (Case [id number] COMPLETE) MRI 3D RENDERING W/O INDEPENDENT (MRI Detailed) CPT:38413 Clinical History: Responsible Attending: ayden whalen Attending Contact Number: [phone] Resident Contact Number: Does your patient have [...] 23, 2024 Date Verified: MAY 23, 2024 Duct Maker E-Sig:/ES/EMILY MONTEMAYOR Report: , [id number] INDICATION: assess ms lesions and activity COMPARISON: [...] demyelination. Primary Interpreting Staff: EMILY MONTEMAYOR, RADIOLOGIST (Duct Maker) /ADRIANNA MONTEMAYOREMILY [facility] May 17, 2024 08:41 AM LDCT LUNG CANCER SCREENING-OUTSIDE: AYDEN CID [id number] -1965 M Exm Date: MAY 17, 2024@08:41 Req Phys: DELMA DAY Loc: [facility] (Req'g Loc) Img Loc: [facility] Service: [facility], [facility] [address] [place] [address] (Case [id number] COMPLETE) LDCT LUNG CANCER SCREENING-OUTSID(CT Detailed) CPT:37161 Reason for Study: tobacco use Clinical History: [...] Cancer Screening on this outside of the [facility] Lung Cancer Screening Program. Furthermore, I agree to follow the Radiologist's recommendations and I am accepting professional responsibility for the further follow-up and management of the Johnson as needed. Yes, I agree to the above statement. Report Status: Verified Date Reported: MAY 19, 2024 Date Verified: MAY 19, 2024 Duct Maker E-Sig:/ES/ANGELA BLOOM MD Report: EXAM: LDCT LUNG CANCER SCREENING-OUTSIDE COMPARISON: 11/05/2023 PROTOCOL: Screening protocol, low dose, non-contrast CT chest was performed at the local [place] facility in accordance with Lung-[facility] 2021. Additional [...] Primary Interpreting Staff: ANGELA BLOOM MD, Radiologist (Duct Maker) /ANGELA VERDE [facility] Encounter Notes: All associated encounter notes This section contains the clinical notes associated to the Encounter. Date/Time Encounter Note(s) Provider Source June 16, 2024 11:09 AM ACCOUNTING OF DISCLOSURES NOTE: LOCAL TITLE: STATE PRESCRIPTION DRUG MONITORING PROGRAM STANDARD TITLE: ACCOUNTING OF DISCLOSURES NOTE DATE OF NOTE: JUNE 16, 2024@11:09:10 ENTRY DATE: JUNE 16, 2024@11:09:10 AUTHOR: VIVIAN ABDI EXP COSIGNER: URGENCY: STATUS: COMPLETED This PDMP query was submitted by Vivian Abdi. The clinical justification for this PDMP query is to review controlled substances prescribed outside of the [place], and any additional information that may become available, as an important component of standard clinical care, and in accordance with [facility] policy. Patient information was shared with the [facility] [place]. No prescription(s) for controlled substances outside the [place] were found in the last 90 days. /gifty/ VIVIAN ABDI Psychiatrist, [facility] Signed: 06/16/2024 11:14 VIVIAN ABDI [facility] June 16, 2024 10:30 AM PSYCHIATRY NOTE: LOCAL TITLE: PSYCHIATRY [facility] STANDARD TITLE: PSYCHIATRY NOTE DATE OF NOTE: JUNE 16, 2024@10:30 ENTRY DATE: JUN 05, 2024@08:21:12 AUTHOR: VIVIAN ABDI EXP COSIGNER: URGENCY: STATUS: COMPLETED [facility] - MEDICATION MANAG[facility] Name..................AYDEN CID Age...................59 Sex...................MALE SSN................... Service Connection.... Service Connected: NO Rated Disabilities: NONE STATED SYNOPSIS: Gorge is a vet with PMH [...] in NAD. Patient was last seen on 03/20/24 at which time we decr his cymbalta dose to 60 mg given sexual side effects at the 90 mg dose. The reported that he has been doing well and tolerated the lower dose well. He shared that his sexual side effects have not improved, although he is seeing a urologist in the community to assist with this. He shared that his mood and anxiety have been stable- I am feeling good and I have a good attitude on life in general...half glass full kind of person. The reported good compliance to meds with no adverse effect. He shared that he uses 0.5 mg lorazepam, at most, once a month. He feels he has plenty to last him for some time. He feels wellbutrin has been helpful. He is unsure of the efficacy of duloxetine and continues to have goals of eventually discontinuing this medication. He did not report any changes to substance use. OBJECTIVE: Problem List: 1) Depression 2) [...] No FOLATE (STL-MA);FOLATE (PB);FOLATE (DC 11-19);FOLATE (DC 10/08) data found VITAMIN D, 25-HYDROXY 29.6 L ng/mL 04/30/2023 10:41 Urine Drug Screen No data available Physical Exam: General: No acute distress, seated comfortably, healthy appearing CV/Resp: No labored breathing, no cyanosis appreciated Extremities: No gross abnormalities, moving all spontaneously Neurological: The patient is awake, alert, and grossly oriented. Ambulating with cane Skin: No obvious rashes or defects on exposed skin Mental Status Exam: Appearance: appears stated age Behavior: cooperative, friendly Eye contact: good Speech: normal rate/rhythm Psychomotor: no psychomotor agitation or slowing Mood: ok Affect: congruent, euthymic Thought process: linear, goal oriented Thought content: -SI/HI Perception: not seen reacting to internal stimuli Cognition: Alert and oriented, memory fair, concentration [...] future orientation * responsibility towards family * christian/spiritual magui History of violence: * none Acute [...] case of a mental health emergency. ASSESSMENT: AYDEN CID is a vet with PMH of MDD, anxiety, hypertension, multiple sclerosis who initially presented in 2016 for treatment of depression. He followed with Dr. Huston and eventually joined my clinic on 03/20/2024. 03/20/24: reported overall stability in mood and anxiety. [...] hold off on refills at this time. 06/16/24: The reported overall stability in his mood and anxiety, even with a decrease in duloxetine to 60 mg. He has continued to have sexual side effects, which he perceives are secondary to duloxetine. His goals remain to slowly taper off of this medication. We discussed decreasing his dose to 30 mg today and, at his next visit, we can consider discontinuation. The reported continued rare use of lorazepam and stated he has plenty at home. He declined any refills today and we did discuss the need for a urine drug screen prior to him receiving refills, which he reported understanding. DIAGNOSES: # MDD # Anxiety TREATMENT PLAN: # MDD # Anxiety -Continue bupropion 450 mg daily -Decrease duloxetine to 30 mg (renal functioning wnl). Okay to increase back to 60 mg between visits if calls in with worsening mood/anxiety symptoms -Johnson is using rare 0.5 mg lorazepam from leftover script. He declined refills for now. If we decide to continue this medication on a very rare usage, we will need to complete below policies. If he reaches out between appointments for a refill, okay to do so given continuity of care after UDS completed -Continue Modafinil per neurology recommendations (vet stated this is prescribed by neuro/PCP) due to fatigue 2/2 multiple sclerosis and related treatments, which might also secondarily be helpful for mood # High risk med use If benzos continued: -Continue regular PDMP queries to monitor controlled substance prescriptions -Continue at minimum UDS q1y after baseline. Discussed with patient potential random UDS. Will require UDS prior to new refill as above -Yearly FTF appointment. Last FTF 06/16/2024 -Vists no less frequent than q3m -V/s documented every 6-12 months -EKG in future if appropriate -Counseled patient to reach out to clinic atleast a few buisness days before running out of script to ensure timely ordering of new script FOLLOW UP: 3 mo (has had difficulties with vvc) SUPPORTIVE PSYCHOTHERAPY/PSYCHOEDUCATION : n/a INSTRUCTIONS GIVEN TO [...] and sudden cardiorespiratory cessation (especially with concomitant ENGINE LATHE TENDER depressants such as alcohol, z-drugs and opioids). Discussed risks of addiction/dependence. I asked the patient to go to the nearest ER/call 911 for any medical emergencies and to also reach out to the clinic. Patient verbalized understanding REMINDERS: Last [place] completed on 03/20/24 /gifty/ VIVIAN ABDI Psychiatrist, [facility] Signed: 06/16/2024 11:13 VIVIAN ABDI [facility]
--- OUTSIDE RECORDS SUMMARY | 2024-07-19 13:02 | XMS_ITS | Encounter Summary ---
Author Name [facility] Organization [facility] [place] Address [address] [place] [address] Care Team Providers Care Industrial Energy Engineer Name Role Phone DELMA DAY Primary Care Provider Unavailab le Selected Encounter This section includes the information on record at [place] for the Encounter. Date/Time Encounter Type Encounter Description Reason Provider Source May 05, 2024 01:30 PM OFFICE O/P EST HI 40 MIN NEUROLOGY ICD-10-CM G35 Multiple sclerosis AYDEN WHALEN Encounter Template Text not used by [place] Assessments - Encounter Diagnoses This section includes the primary and secondary diagnoses documented for the Encounter. 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 This section includes future appointments and future orders which are active, pending or scheduled. Future Appointments This section includes appointments that were scheduled to occur 6 months from the date of the Encounter, up to a maximum of 20 appointments. The data comes from all [place] treatment facilities. Appointment Date/Time Appointment Type Appointme nt Facility Name May 06, 2024 11:00 AM AMBULATORY - MEDICINE [facility] May 17, 2024 09:00 AM AMBULATORY - NONE [facility] May 23, 2024 07:30 AM AMBULATORY - NONE [facility] June 16, 2024 11:00 AM AMBULATORY - PSYCHIATRY [facility] July 02, 2024 01:30 PM AMBULATORY - NONE [facility] Sep 15, 2024 09:30 AM AMBULATORY - PS[facility]CHIATRY [facility] Oct 27, 2024 10:30 AM AMBULATORY - MEDICINE [facility] Lab Results: +/- 30 days of the encounter This section includes the Chemistry and Hematology Lab Results on record with [place] for the patient. Radiology Reports and Pathology Reports are provided separately, in subsequent sections. Lab Results This section contains the Chemistry/Hematology Results that were resulted 30 days before or 30 daysafter the date of the Encounter. Date/Time Source Result Type Result - Unit Interpretation Reference Range Specimen Type Comment Apr 23, 2024 04:19 PM [facility] HGA1C BLOOD Specimen Type: BLOOD No comment entered. Ordering Provider: DELMA DAY Report Released Date/Time: Apr 23, 2024 10:16 AM Reporting Lab: [address] [address] Performing Lab: [address] [address] HGA1C 5.5 4.0-6.0 Apr 23, 2024 04:19 PM [facility] LIPID PANEL (STL) PLASMA Specimen Ty pe: PLASMA No comment entered. Ordering Provider: DELMA DAY Report Released Date/Time: Apr 23, 2024 10:16 AM Reporting Lab: [address] [address] Performing Lab: [address] [address] CHOLESTEROL 235 mg/dL H 0-200 TRIGLYCERIDE 246 mg/dL H 0-150 CALCULATED LDL 149 mg/dL HDL(New) 37 mg/dL L >40 Apr 23, 2024 04:19 PM [facility] PROST. SPECIFIC AG.(PB-STL) SERUM Specimen Ty pe: SERUM Comment: The listed sex of this patient may not be a typical indication for this test. Therefore, reference ranges or interpretive criteria listed may not be valid. Clinical correlation suggested. Ordering Provider: DELMA DAY Report Released Date/Time: Apr 23, 2024 10:16 AM Reporting Lab: [place] [address] [facility] [address] Performing Lab: [place] [address] [facility] [address] PROST. SPECIFIC AG.(PB-STL) 0.355 ng/mL 0-4 Apr 23, 2024 04:19 PM [facility] TSH W/ REFLEX FT4 (STL) PLASMA Speci men Type: PLASMA No comment entered. Ordering Provider: DELMA DAY Report Released Date/Time: Apr 23, 2024 10:16 AM Reporting Lab: [address] [address] Performing Lab: [place] [address] [facility] [address] TSH 2.066 u[IU]/mL 0.47-5 Apr 23, 2024 04:19 PM [facility] VITAMIN D, 25-HYDROXY SERUM Specimen Type: SE RUM Comment: The listed sex of this patient may not be a typical indication for this test. Therefore, reference ranges or interpretive criteria listed may not be valid. Clinical correlation suggested. Ordering Provider: DELMA DAY Report Released Date/Time: Apr 23, 2024 10:16 AM Reporting Lab: [place] [address] [facility] [address] Performing Lab: [address] [address] VITAMIN D, 25-HYDROXY 28.0 ng/mL L 30-96 Apr 23, 2024 04:18 PM [facility] CD19, B CELL PANEL BLOOD Specimen Type: BLOOD No comment entered. Ordering Provider: AYDEN WHALEN Report Released Date/Time: Apr 09, 2024 11:41 AM Reporting Lab: [address] [place] [address] Performing Lab: [facility] [address] [facility] CD,19 B CELLS(STL) 0 {cells}/uL L 110-660 LYMPHOCYTES-SO 1274 {cells}/uL 850-3900 CD19 Percentage 0 L 6-29 Apr 23, 2024 04:01 PM [facility] IGG (STL) PLASMA Specimen Type: PLASM A Comment: No hemolysis noted. Ordering Provider: AYDEN WHALEN Report Released Date/Time: Apr 09, 2024 11:41 AM Reporting Lab: [address] [address] Performing Lab: [address] [address] IGG (STL) 767 mg/dL 540-1822 Apr 23, 2024 04:01 PM [facility] COMPREHENSIVE METABOLIC PANEL PLASMA Specimen Type: PLASMA Comment: No hemolysis noted. Ordering Provider: AYDEN WHALEN Report Released Date/Time: Apr 09, 2024 11:41 AM Reporting Lab: [address] [address] Performing Lab: [address] [address] CREATININE 0.91 mg/dL 0.7-1.3 UREA NITROGEN 13.5 [...] 97.1 >60 Apr 23, 2024 04:[address] [facility] CBC BLOOD Specimen Type: BLOOD No comment entered. Ordering Provider: AYDEN WHALEN Report Released Date/Time: Apr 09, 2024 11:41 AM Reporting Lab: [facility] [address] [facility] [address] Performing Lab: [facility] [address] [facility] [address] WBC 8.1 10*3/uL 3.6-11.2 RBC 5.54 10*6/uL [...] Pain Height Weight Body Mass Index Source May 05, 2024 11:15 AM 97.9 74 145/95 18 97 [facility] Social History: Smoking Status (Most current) and Tobacco Use (All prior to encounter date) This section includes the most current, and the historical, smoking and tobacco- related health factors from the [place] facility where the Encounter took place. Current Smoking Status This section includes the most current smoking, or tobacco-related health factor, from the [place] facility where the Encounter took place. Date/Time Current Smoking Status Comment Facil ity Feb 02, 2016 06:02 PM TOBACCO OFFERED [facility] SMOKING [facility] Tobacco Use History This section includes a history of the smoking, or tobacco-related health factors, that were collected on or before the date of the Encounter. The data comes from the [place] facility where the Encounter took place. Date/Time Smoking Status/Tobacco Use Comment F acility Feb 02, 2016 06:02 PM TOBACCO OFFERED [facility] SMOKING [facility] Radiology Reports: +/- 30 days of [...] the Encounter. The data comes from all [place] treatment facilities. Date/Time Radiology Report Provider Source May 23, 2024 06:59 AM MRI SPINE CERVICAL W/O&W CONT: AYDEN WALLS [id number] -[id number] Exm Date: MAY 23, 2024@06:59 Req Phys: AYDEN WHALEN Pat Loc: [facility] (Req'g Loc) Img Loc: [facility] Service: [address] [address] (Case [id number] COMPLETE) MRI SPINE CERVICAL W/O&W CONT (MRI Detailed) CPT:45953 Contrast Media : unspecified contrast media Reason [...] 23, 2024 Date Verified: MAY 23, 2024 Human Resources Representative E-Sig:/ES/EMILY MONTEMAYOR Report: INDICATION: assess ms lesions [...] 2022. Primary Interpreting Staff: EMILY MONTEMAYOR, RADIOLOGIST (Human Resources Representative) /EMILY SEGURA [facility] May 23, 2024 06:58 AM MRI BRAIN W&W/O CONTRAST-P: AYDEN WALLS [id number] -[id number] M Ex Date: MAY 23, 2024@06:58 Req Phys: AYDEN WHALEN Loc: [facility] (Req'g Loc) [facility] Loc: [facility] Service: [address] [address] (Case [id number] COMPLETE) MRI BRAIN W/O&W CONT (MRI Detailed) CPT:11644 Contrast Media : unspecified contrast media Reason for Study: assess ms lesions and activity (Case [id number] COMPLETE) MRI 3D RENDERING W/O INDEPENDENT (MRI Detailed) CPT:81362 Clinical History: Responsible Attending: ayden whalen Attending Contact Number: [phone] Resident Contact Number: Does your patient have [...] 23, 2024 Date Verified: MAY 23, 2024 Human Resources Representative E-Sig:/ES/EMILY MONTEMAYOR Report: , [id number] INDICATION: assess ms lesions and activity COMPARISON: [...] demyelination. Primary Interpreting Staff: EMILY MONTEMAYOR, RADIOLOGIST (Human Resources Representative) /EMILY SEGURA [facility] May 17, 2024 08:41 AM LDCT LUNG CANCER SCREENING-OUTSIDE: AYDEN WALLS [id number] -[id number] M Exm Date: MAY 17, 2024@08:41 Req Phys: DELMA DAY Loc: [facility] (Req'g Loc) Img Loc: [facility] Service: Unknown [facility] [address] [place] [address] (Case [id number] COMPLETE) LDCT LUNG CANCER SCREENING-OUTSID(CT Detailed) CPT:23376 Reason for Study: tobacco use Clinical History: [...] ordering the Lung Cancer Screening on this [place] outside of the [facility] Lung Cancer Screening Program. Furthermore, I agree to follow the Radiologist's recommendations and I am accepting professional responsibility for the further follow-up and management of the [place] as needed. Yes, I agree to the above statement. Report Status: Verified Date Reported: MAY 19, 2024 Date Verified: MAY 19, 2024 Human Resources Representative E-Sig:/ES/ANGELA BLOOM MD Report: EXAM: LDCT LUNG CANCER SCREENING-OUTSIDE COMPARISON: 11/05/2023 PROTOCOL: Screening protocol, low dose, non-contrast CT chest was performed at the local [place] facility in accordance with Lung-R[facility] 2021. Additional [...] Primary Interpreting Staff: ANGELA BLOOM MD, Radiologist (Human Resources Representative) /ANGELA VERDE [facility] Encounter Notes: All associated encounter notes This section contains the clinical notes associated to the Encounter. Date/Time Encounter Note(s) Provider Source May 05, 2024 01:46 PM NEUROLOGY OUTPATIE NT NOTE: LOCAL TITLE: NEUROLOGY OUTPATIENT FOLLOW UP ST STANDARD TITLE: NEUROLOGY OUTPATIENT NOTE DATE OF NOTE: MAY 05, 2024@13:46 ENTRY DATE: MAY 05, 2024@13:46:54 AUTHOR: WHALEN,AYDEN EXP COSIGNER: URGENCY: STATUS: COMPLETED Patient's identity confirmed by having patient say their name and social security number. TYPE OF ASSESSMENT [x] Follow up Outpatient I saw BUSHONG,AYDEN ELADIO, a 59 MALE , in the outpatient Neurology clinic today. Provider requesting consult: SIMMERING,DELMA Chief Complaint: Fatigue Prior History and Plan: Interval History: Walking and standing for periods of time will result in immediate fatigue. He has more trouble with his Right leg but has not fallen. He was sick over the winter with presumed flu and recovered ok. His was really sick for a longer period of time. He is on Rituxan. He received his infusion just prior to presentation to clinic today. He does not wish to have Benadryl for the infusion as it makes him feel very 'loopy'. 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 Any medication discrepancies have been resolved. Patient will be provided with an updated list of his/her medication(s). ALLERGIES: Patient has answered NKA Review of Systems: A 12 point Review of Systems was performed. All systems were negative except as per HPI above. CONSTITUTIONAL: The patient's weight has not changed recently and appetite has been fair. Physical Examination: VITALS: Temperature: 98.1 F [36.7 C] (04/23/2024 10:06) Blood Pressure: 125/81 (04/23/2024 10:10) Pulse: 66 (04/23/2024 10:06) Respirations: 20 (04/23/2024 10:06) Height: 71 in [180.3 cm] (12/11/2018 11:28) Weight: 258 lb [117.03 kg] (04/23/2024 10:06) Neurologic Examination: Aid: Single point cane General [...] on the Right: - Hip flexor = 4/5 - Knee flexor = 4/5 - Ankle dorsiflexion = 4+/5. There is normal tone. Finger tapping is reduced on the Right. Toe tapping is mildly slowed on the Right. There is no postural tremor. There is mild action tremor in the upper extremities bilaterally (high frequency/high amplitude). Sensation: Light touch is intact in the arms and legs. Romberg is positive. Coordination: Mhqfii-enul-ozueig is normal bilaterally. Rapid alternating movements are normal bilaterally. Imif-yjmd-vemk is normal bilaterally. Reflexes: Upper extremity reflexes are 2++ on the Right, 2+ on the Left. Lower extremity reflexes are 2++ on the Right, 2+ on the Left. Ambulation: Gait and stance are notable for significant antalgia and pelvic tilt on the Right with hyperextension of the Right knee. LAB RESULTS: Comprehensive Metabolic Panel SODIUM 142 mEq/L 04/23/2024 16:01 POTASSIUM 4.1 mEq/L 04/23/2024 16:01 CHLORIDE 105 mEq/L 04/23/2024 16:01 UREA NITROGEN 13.5 mg/dL 04/23/2024 16:01 CREATININE 0.91 mg/dL 04/23/2024 16:01 CALCIUM 9.4 mg/dL 04/23/2024 16:01 PROTEIN 7.3 g/dL 04/23/2024 16:01 ALBUMIN 4.4 g/dL 04/23/2024 16:01 ALKALINE PHOSPHATASE 101 U/L 04/23/2024 16:01 ALT/SGPT 26 U/L 04/23/2024 16:01 AST/SGOT 29 U/L 04/23/2024 16:01 TOTAL BILIRUBIN 0.4 mg/dL 04/23/2024 16:01 CARBON DIOXIDE 25 mEq/L 04/23/2024 16:01 GLUCOSE 101 H mg/dL 04/23/2024 16:01 EGFR (CKD-EPI 2020) 97.1 04/23/2024 16:01 Complete Blood Count WBC: 8.1 10*3/uL (04/23/24 16:01) RBC: 5.54 10*6/uL (04/23/24 16:01) HGB: HGB 16.1 g/dL 04/23/2024 16:01 HCT: 48.2 % (04/23/24 16:01) PLT: PLT 341 10*3/uL 04/23/2024 16:01 Hepatic function: AST/SGOT 29 U/L 04/23/2024 16:01 ALT/SGPT 26 U/L 04/23/2024 16:01 Coagulation parameters: PT: ____ INR: ____ PTT: No PTT EO data found Lipids: ------ ____ Other pertinent labs HgbA1c: HGA1C 5.5 % 04/23/2024 16:19 Folate: No FOLATE ([facility]);FOLATE (PB);FOLATE (DC 11-19);FOLATE (DC 11/19) data found Vitamin D: VITAMIN D, 25-HYDROXY 28.0 L ng/mL 04/23/2024 16:19 B12: No B12 EO data found RF: No data available for: RHEUMATOID FACTOR (STL) YAW:0 RPR: ____ HIV: No HIV Antibody (STL);HIV COMBO ([facility]) data found HCV: HEP C Ab HCV Ab ([facility]) NEGATIVE 06/07/2017 08:28 Urine Drug Screen No URINE DRUG SCREEN EO data found Imaging: MRI: Images from brain MRI dated 07/05/23 were personally reviewed. These reveal white matter lesion burden in the cerebral white matter consistent with inflammatory demyelination without evidence of active lesions (enhancement). ASSESSMENT: AYDEN WALLS is a 59 year old MALE with multiple sclerosis previously [...] six months (500 mg IV); next infusion in six months. Will try without Benadryl. 2. Blood work in six months prior to nextr infusion, specifically CD19 and IgG levels. 3. Continue Modafinil for fatigue. 4. MRI of the brain and spine with and without contrast now to monitor lesion burden and disease activity. 5. Continue Baclofen for spasticity and Gabapentin as needed for sensory abnormalities. 6. Continue to defer vitamin D supplementation due to renal stones. Can inquire with urology regarding basis of renal calculi; no urgent need to replenish vitamin D with current level. 7. PT evaluation for modified AFO per his preference. 8. Healthy lifestyle, including routine exercise and [...] records, imaging, lab data, etc.: 5 minutes I spent a total of 30 minutes with AYDEN WALLS with more than 50% of the time discussing many of the issues related to diagnosis, symptoms and management of neurologic diseases such as multiple sclerosis. Time spent after visit on day of service writing orders, communicating with other healthcare providers, charting the note in the electronic medical record, etc: 10 minutes TOTAL TIME on day of service: 45 minutes /gifty/ Ayden Whalen MD, PhD Staff Physician - Neurology Signed: 05/05/2024 20:26 Receipt Acknowledged By: 05/05/2024 23:00 /gifty/ DELMA DAY MD STAFF PHYSICIAN AYDEN WHALEN [facility]
--- OUTSIDE RECORDS SUMMARY | 2024-07-19 13:02 | XMS_ITS ---
Author Name [facility] ([place]) Organization [facility] ([place]) Address [address] [place] [address] Care Team Providers Care Hoop Riveter Name Role Phone DELMA DAY Primary Care Provider Unavailab le Selected Encounter This section includes the information on record at OR for the Encounter. Date/Time Encounter Type Encounter Description Reason Provider Source May 06, 2024 11:00 AM OFF/OP CONSLTJ NEW/EST SF 20 PULMONARY/CHEST ICD-10-CM Z12.2 Encntr screen for malignant neoplasm of respiratory organs ERA GALINDO Sarah Encounter Template Text not used by OR Assessments - Encounter Diagnoses This section includes the primary and secondary diagnoses documented for the Encounter. Date/Time Primary/Secondary Diagnosis Diagnosis Name Provider Source May 06, 2024 11:34 AM PRIMARY Encntr screen for malignant neoplasm of respiratory organs ERA GALINDO [facility] May 06, 2024 11:34 AM SECONDARY Solitary pulmonary nodule ERA GALINDO [facility] May 06, 2024 11:34 AM SECONDARY Tobacco use ERA GALINDO [facility] Plan of Treatment: Future [...] The data comes from all OR treatment [facility]. Appointment Date/Time Appointment Type Appointme nt Facility Name May 17, 2024 09:00 AM AMBULATORY - NONE [facility] May 23, 2024 07:30 AM AMBULATORY - NONE [facility] June 16, 2024 11:00 AM AMBULATORY - PSYCHIATRY [facility] July 02, 2024 01:30 PM AMBULATORY - NONE [facility] Sep 15, 2024 09:30 AM AMBULATORY - PSYCHIATRY [facility] Oct 27, 2024 10:30 AM AMBULATORY - MEDICINE [facility] Lab Results: +/- 30 days of the encounter This section includes the Chemistry and Hematology Lab Results on record with OR for the patient. Radiology Reports and Pathology Reports are provided separately, in subsequent sections. Lab Results This section contains the Chemistry/Hematology Results that were resulted 30 days before or 30 daysafter the date of the Encounter. Date/Time Source Result Type Result - Unit Interpretation Reference Range Specimen Type Comment Apr 23, 2024 04:19 PM [facility] LIPID PANEL (STL) PLASMA Specimen Type: PLASMA No comment entered. Ordering Provider: DELMA DAY Report Released Date/Time: Apr 23, 2024 10:16 AM Reporting Lab: [facility] [address] [facility] [address] [address] Performing Lab: [facility] [address] [facility] [address] CHOLESTEROL 235 mg/dL H 0-200 TRIGLYCERIDE 246 mg/dL H 0-150 CALCULATED LDL 149 mg/dL HDL(New) 37 mg/dL L >40 Apr 23, 2024 04:19 PM [facility] HGA1C BLOOD Specimen Type: BLOOD No comment entered. Ordering Provider: DELMA DAY Report Released Date/Time: Apr 23, 2024 10:16 AM Reporting Lab: [facility] [address] [facility] [address] Performing Lab: [facility] [address] [facility] [address] HGA1C 5.5 4.0-6.0 Apr 23, 2024 04:19 PM [facility] PROST. SPECIFIC AG.(PB-STL) SERUM Specimen Ty pe: SERUM Comment: The listed sex of this patient may not be a typical indication for this test. Therefore, reference ranges or interpretive criteria listed may not be valid. Clinical correlation suggested. Ordering Provider: DELMA DAY Report Released Date/Time: Apr 23, 2024 10:16 AM Reporting Lab: [facility] [address] [place] [address] Performing Lab: [address] [address] PROST. SPECIFIC AG.(PB-STL) 0.355 ng/mL 0-4 Apr 23, 2024 04:19 PM [facility] VITAMIN D, 25-HYDROXY SERUM Specimen Type: SE RUM Comment: The listed sex of this patient may not be a typical indication for this test. Therefore, reference ranges or interpretive criteria listed may not be valid. Clinical correlation suggested. Ordering Provider: DELMA DAY Report Released Date/Time: Apr 23, 2024 10:16 AM Reporting Lab: [facility] [address] [place] [phone] Performing Lab: [address] [address] VITAMIN D, 25-HYDROXY 28.0 ng/mL L 30-96 Apr 23, 2024 04:19 PM [facility] TSH W/ REFLEX FT4 (STL) PLASMA Speci men Type: PLASMA No comment entered. Ordering Provider: DELMA DAY Report Released Date/Time: Apr 23, 2024 10:16 AM Reporting Lab: [facility] [address] [place] [address] Performing Lab: [address] [address] TSH 2.066 u[IU]/mL 0.47-5 Apr 23, 2024 04:18 PM [facility] CD19, B CELL PANEL BLOOD Specimen Type: BLOOD No comment entered. Ordering Provider: AYDEN WHALEN Report Released Date/Time: Apr 09, 2024 11:41 AM Reporting Lab: [facility] [address] [place] [phone] Performing Lab: [facility] [id number] [place] [address] CD,19 B CELLS(STL) 0 {cells}/uL L 110-660 LYMPHOCYTES-SO 1274 {cells}/uL 850-3900 CD19 Percentage 0 L 6-29 Apr 23, 2024 04:01 PM [facility] IGG (STL) PLASMA Specimen Type: PLASM A Comment: No hemolysis noted. Ordering Provider: AYDEN WHALEN Report Released Date/Time: Apr 09, 2024 11:41 AM Reporting Lab: [address] [address] Performing Lab: [address] [address] IGG (STL) 767 mg/dL 540-1822 Apr 23, 2024 04:01 PM [facility] COMPREHENSIVE METABOLIC PANEL PLASMA Specimen Type: PLASMA Comment: No hemolysis noted. Ordering Provider: AYDEN WHALEN Report Released Date/Time: Apr 09, 2024 11:41 AM Reporting Lab: [address] [address] Performing Lab: [address] [address] CREATININE 0.91 mg/dL 0.7-1.3 UREA NITROGEN 13.5 [...] 97.1 >60 Apr 23, 2024 04:01 PM [facility] CBC BLOOD Specimen Type: BLOOD No comment entered. Ordering Provider: AYDEN WHALEN Report Released Date/Time: Apr 09, 2024 11:41 AM Reporting Lab: [facility] [address] [facility] [address] Performing Lab: [facility] [address] [facility] [address] WBC 8.1 10*3/uL 3.6-11.2 RBC 5.54 10*6/uL [...] Feb 02, 2016 06:02 PM TOBACCO OFFERED [facility] SMOKING CLINIC [facility] Tobacco Use History This section includes a history of the smoking, or tobacco-related health factors, that were collected on or before the date of the Encounter. The data comes from the OR facility where the Encounter took place. Date/Time Smoking Status/Tobacco Use Comment F patricia Feb 02, 2016 06:[address] SMOKING CLINIC [facility] Radiology Reports: +/- 30 days of [...] MRI SPINE CERVICAL W/O&W CONT: PALAKAYDENKIRBY MERRITT [id number] -1965 M Exm Date: MAY 23, 2024@06:59 Req Phys: AYDEN WHALEN Pat Loc: [facility] (Req'g Loc) Img Loc: [facility] Service: Unknown [address] [address] (Case [id number] COMPLETE) MRI SPINE CERVICAL W/O&W CONT (MRI Detailed) CPT:05771 Contrast Media : unspecified contrast media Reason [...] 23, 2024 Date Verified: MAY 23, 2024 Heat Treater Apprentice E-Sig:/ES/EMILY MONTEMAYOR Report: INDICATION: assess ms lesions [...] 2022. Primary Interpreting Staff: EMILY MONTEMAYOR, RADIOLOGIST (Heat Treater Apprentice) /EMILY SEGURA [facility] May 23, 2024 06:58 AM MRI BRAIN W&W/O CONTRAST-P: AYDEN WALLS [id number] -1965 Ex Date: MAY 23, 2024@06:58 Req Phys: AYDEN WHALEN Loc: [facility] (Req'g Loc) Img Loc: [facility] Service: [address] [address] (Case [id number] COMPLETE) MRI BRAIN W/O&W CONT (MRI Detailed) CPT:19683 Contrast Media : unspecified contrast media Reason for Study: assess ms lesions and activity (Case [id number] COMPLETE) MRI 3D RENDERING W/O INDEPENDENT (MRI Detailed) CPT:31852 Clinical History: Responsible Attending: ayden whalen Attending Contact Number: [phone] Resident Contact Number: Does your patient have [...] 23, 2024 Date Verified: MAY 23, 2024 Heat Treater Apprentice E-Sig:/ES/EMILY MONTEMAYOR Report: , [id number] INDICATION: assess ms lesions and activity COMPARISON: [...] demyelination. Primary Interpreting Staff: EMILY MONTEMAYOR, RADIOLOGIST (Heat Treater Apprentice) /EMILY SEGURA [facility] May 17, 2024 08:41 AM LDCT LUNG CANCER SCREENING-OUTSIDE: AYDEN WALLS [id number] -1965 M Exm Date: MAY 17, 2024@08:41 Req Phys: DELMA DAY Loc: [facility] (Req'g Loc) Img Loc: [facility] Service: Unknown [facility], [address] [place] [address] (Case [id number] COMPLETE) LDCT LUNG CANCER SCREENING-OUTSID(CT Detailed) CPT:89931 Reason for Study: tobacco use Clinical History: [...] Cancer Screening on this outside of the [facility] Lung Cancer Screening Program. Furthermore, I agree to follow the Radiologist's recommendations and I am accepting professional responsibility for the further follow-up and management of the as needed. Yes, I agree to the above statement. Report Status: Verified Date Reported: MAY 19, 2024 Date Verified: MAY 19, 2024 Heat Treater Apprentice E-Sig:/ES/ANGELA BLOOM MD Report: EXAM: LDCT LUNG [...] Primary Interpreting Staff: ANGELA BLOOM MD, Radiologist (Heat Treater Apprentice) /ANGELA VERDE [facility] Encounter Notes: All associated encounter notes This section contains the clinical notes associated to the Encounter. Date/Time Encounter Note(s) Provider Source May 06, 2024 11:34 AM INTERNAL MEDICINE NOTE: LOCAL TITLE: LUNG CANCER SCREENING ADMIN [facility] STANDARD TITLE: INTERNAL MEDICINE NOTE DATE OF NOTE: MAY 06, 2024@11:34 ENTRY DATE: MAY 06, 2024@11:34:17 AUTHOR: ERA GALINDO COSIGNER: URGENCY: STATUS: COMPLETED The patient smokes cigarettes. How many years have you smoked cigarettes? # of years: 49 Average number of packs/day over the entire time patient smoked: Packs/day: 1 Lung Cancer Screening Patient Management *INITIAL SCREENING* - is eligible for lung cancer screening based on age, smoking history and the absence of signs or symptoms of lung cancer. - Marble informed of the interventions to reduce the risk of dying from lung cancer, including quitting smoking and annual lung cancer screening. - Marble informed of the potential harms of screening including: false positives and false negatives, follow-up diagnostic testing, over-diagnosis and radiation exposure. - Marble counseled on the importance of adherence to annual lung cancer LDCT screening, impact of comorbidities and ability or willingness to undergo diagnosis and treatment. - After shared decision making discussion, Marble has agreed to lung cancer screening. Pt scheduled for LDCT 05/17/2024. alerted myself to results. Will take over future orders. /gifty/ ERA GALINDO APRN NURSE PRACTITIONER, SURGERY SERVICE CCT Signed: 05/06/2024 11:35 ERA GALINDO [facility] May 06, 2024 11:00 AM CONSULT: LOCAL TITLE: LUNG CANCER SCREENING CONSULT [facility] STANDARD TITLE: CONSULT DATE OF NOTE: MAY 06, 2024@11:00 ENTRY DATE: MAY 06, 2024@11:00:47 AUTHOR: ERA GALINDO EXP COSIGNER: URGENCY: STATUS: COMPLETED The Marble was educated about the use of Clinical Video Telehealth for this encounter. The also understands that a video-technology is being used for this visit. The consents to be seen today using Clinical Video Telehealth. Emergency Services contact E-[phone] Full name and last 4 of N verified Patient location during visit: [address] [place] [address] Emergency number confirmed. Interval HPI: Mr. Walls is a 59 yo M. pMHX: DDD, HTN, Current Tobacco Use, Multiple Sclerosis (MS) relapsing remitting dx 02/2014, Drop Foot. Meeting with Marble to discuss enrollment into Lung cancer screening program. Most recent LDCT completed 11/05/2023 LRADS 3. Demonstrated a solid LLL 6.5mm Nodule. Pt scheduled for f/u LDCT 05/17/2024. I have forwarded myself the results. Pt reports he ctn to use Cigarettes. Has quit in the past before x9 months. Resumed because of life stressors. States he has all the NRT and is not interested in anymore at this time. States he just needs to make up his mind when he wants to quit and set a date. Denies any recent ER visits or Hospitalizations. Denies any recent SOB, Cough, Fever, Chills, or unexplained weight Loss. Screening for lung cancer Marble: --Is age 50-80: yes --Has a 20+ pack-year smoking habit: yes --Is current smoker or quit within the last 15 years: yes --Does not have a health problem that substantially limits life expectancy, or the ability or willingness to have curative treatment: Pt does have Multiple sclerosis. But would like treatment if indicated. Other information: --Marble has symptoms suspicious for lung cancer that include: NA --Marble has history of Lung or Head and Neck cancer: NA --Number of pack-years: 49 --If quit smoking, number of years since quitting: NA --Shared decision-making has occurred regarding the benefits and risks of the screening program agrees to screening (yes) --Incidental finding will be the responsibility of and reported to: PCP SUBJECTIVE: Social History: *Substance use: Tobacco: 1ppd x49 years. Alcohol: None Illicit Drugs/MJ: Smoke MJ *Cancer History: Personal: Multiple sclerosis on Rituxan Family: Grandfather -- [place] * History: [employer] x6 years *Environmental Exposures: G[place] up on [place] on [place]. *COVID-19 Hx: 2023 *Living arrangement: *Occupational: Retired. PFTs: None ROS: A complete 10 point ROS was performed as per interval history. All other systems were reviewed and negative other than those as mentioned. Active Outpatient Medications (including Supplies): Active Outpatient [...] EVERY 6 HOURS NEEDED 9 Total Medications PAST HISTORY: 1) Depression 2) Tobacco use 3) Benign essential hypertension 4) Arthritis 5) Dropfoot 6) Multiple sclerosis (MS) relapsing remitting 7) Renal stone 8) Peripheral neuropathy 9) Vitamin D deficiency 10) Erectile dysfunction 11) Incontinence 12) Recurrent falls 13) Degenerative disc disease 14) Cannabis abuse 15) Long-term current use of drug therapy 16) Inflamed seborrhoeic keratosis OBJECTIVE: Pt logged on but not able to get Camera to work Objective: HGA1C 5.5 % 04/23/2024 16:19 HGA1C 5.6 % 04/26/2020 09:03 SODIUM 142 mEq/L 04/23/2024 16:01 POTASSIUM 4.1 mEq/L 04/23/2024 16:01 CHLORIDE 105 mEq/L 04/23/2024 16:01 UREA NITROGEN 13.5 mg/dL 04/23/2024 16:01 CREATININE 0.91 mg/dL 04/23/2024 16:01 CALCIUM 9.4 mg/dL 04/23/2024 16:01 CARBON DIOXIDE 25 mEq/L 04/23/2024 16:01 GLUCOSE 101 H mg/dL 04/23/2024 16:01 EGFR (CKD-EPI 2020) 97.1 04/23/2024 16:01 No data available No MICRAL/CREAT RATIO (STL) data found TRIGLYCERIDE 246 H mg/dL 04/23/2024 16:19 CHOLESTEROL 235 H mg/dL 04/23/2024 16:19 HDL(New) 37 L mg/dL 04/23/2024 16:19 CALCULATED LDL 149 mg/dL 04/23/2024 16:19 TSH 2.066 uIU/mL 04/23/2024 16:19 Allergies: Patient has answered NKA Assessment/Plan: #Lung Nodule: LLL 6.5mm LDCT - Reviewed recent LDCT w/ pt 11/05/2023 LRADS 3. - Reviewed trajectory of treatment if nodule ctn to grow or other concerning nodule is noted. i.e. PET/CT--> Biopsy--> Thoracic surgery vs SBRT. Informed pt will review treatment options again at later date if indicated. - Discussed willingness for biopsy along with risk vs benefits of biopsy. - Discussed willingness for Surgery vs RAD/ONC if indicated. - If Nodule stable will ctn to monitor pt via LDCTs in 3-12 month increments. #Lung Cancer Screening: Marble is eligible and agrees to lung cancer screening after shared decision making discussion with Lung Cancer Screening Coordinator. Lung Cancer Screening Risk Calculator estimates his risk of developing Lung Cancer in the next 5 years: 4.52% * Low dose CT Chest scheduled for 05/18/2023. Have alerted myself to the results. Will complete any f/u needed. * Discussed potential benefits of lung cancer screening: - Reduce mortality from lung cancer - Screening looks for disease before you have symptoms. It can help find lung cancer in an earlier, more treatable stage. * Discussed potential harms of lung cancer screening: - Anxiety and stress from false-positive results - Complications from invasive procedures if an abnormality is found - The low-dose radiation from lung cancer screening increases your risk of developing cancer years later by a small amount. * Discussed possibility of overdiagnosis: - Potentially finding a lung cancer that would have never been a clinical problem * Discussed other issues: - Impact of comorbidities on screening: The benefit is reduced in patients in poor health - Patients' willingness and/or ability to undergo invasive diagnostic procedures/treatments should results warrant further follow-up. - Quitting smoking is the most important thing you can do to lower your chance of dying from a variety of disease, not just lung cancer. - Annual adherence to follow up scan, as not a onetime scan * Reviewed with pt if LDCT shows no concerning Lung nodules: LRADS 1 or 2 will send letter in mail with results of scan. If LDCT Shows concerning nodules: LRADS 3 or 4 provider will call pt and review CT with pt and establish a f/u plan with pt. #Tobacco Cessation - Declines help at this time - Informed Marble that quitting smoking is one of the best things to improve and maintain health - Education provided regarding tobacco use, specifically multifactorial health risks, including but limited to Lung Cancer, Stroke, [place], Poor Wound Healing - Education provided on available smoking cessation treatments including OTC and/or prescription medications, and/or counseling RTC: PRN Patient verbalized understanding and has no questions. All patients are counseled on the risks of smoking at every visit including patients with no history of smoking in order to dissuade them from starting the use of tobacco products; former smokers to minimize recidivism of nicotine dependence; and current smokers in an effort to help them cease the use of nicotine products. Where relevant [age between 50-60-years and history of smoking], we and/or the PCP will obtain an abdominal ultrasound to screen for the possibility of an abdominal aortic aneurysm and ABIs to screen for occult PAD. When completed, the results will be found in [facility]. # HEALTH PROMOTION/HEALTH MAINTENANCE & EDUCATION DISEASE: Discussed treatment options & counseled on exacerbating factors. # DIAGNOSTIC TESTING AND LABORATORY DATA: Pertinent labs and diagnostic tests (both normal and abnormal) are included above and were reviewed and discussed with the patient within 7-days of the test and during this visit. - DISEASE: Coordinated care; discussed treatment options, & counseled on exacerbating factors. - Encouraged participation in regular exercise program 3-5 days/week - Discussed at length about lifestyle modifications in regard to diet, exercise, and medication compliance. - Assessed smoking habits and whether actively using tobacco products or a past - Discussed importance of immunizations to prevent disease. The patient verbalized understanding of information regarding: labs, meds, and plans for care. Reinforcement is indicated. # MEDICATION RECONCILIATION: - All pulmonary medications were reconciled during the visit. - Other listed profile meds will continue as directed by the PCP (primary provider). I spent 20 minutes performing services for this patient: before, during and after the VVC visit today more than 50% of the provider's VVC visit time with a patient is spent in counseling or coordination of care /gifty/ ERA GALINDO APRN NURSE PRACTITIONER, SURGERY SERVICE CCT Signed: 05/06/2024 11:34 ERA GALINDO [facility]
--- OUTSIDE RECORDS SUMMARY | 2024-07-19 13:54 | XMS_ITS | Continuity of Care Document ---
Author Organization [facility] Address [address] [place] [address] Phone Care Team Providers Care Channel Marketing Specialist Name Role Phone Genevieve Villarreal DPT Unavailable [...] Diagnoses Date Provider Providers Copied on Encounter [facility] [address], [place], [place], [id number], [phone] Ava No Information 3 Phil Vallejo. [address], [address], [place], [address], [place]. tel: [phone] [facility] [address], [place], [place], [id number], [phone] Ava No Information 2 Villarreal Genevieve. [address] [place] [address], [address], [place], [facility], . tel:[phone] Referring Provider: [address], [place], [address]. tel:[phone] [facility] [address] [place], [place] [address], [place], [place], [id number], [phone] Ava No Information 2 Villarreal Genevieve. [address] [place] [address], [address], [facility], . tel:[phone] Referring Provider: [address], [place], [place], [facility]. tel:[phone] [facility] [address] [place] [address], [id number], [phone] Ava No Information 2 Villarreal Genevieve. [address] [place] [address], [address], [facility], . tel:[phone] Referring Provider: [address], [place], [address]. tel:[phone] [facility] [address] [place] [address], [id number], [phone] Ava Pain in joint involving ankle and foot 2 Villarreal Genevieve. [address] [place] [address], [facility] [address], [place], [facility], . tel:[phone] Referring Provider: [address], [place], [address]. tel:[phone] Family History Family Member Type Diagnosis Age At Onset No Information Payers Payer name Insurance type Covered alliance party ID Authoriza tion(s) No Information Social [...]
--- OUTSIDE RECORDS SUMMARY | 2024-07-19 13:54 | XMS_ITS | Continuity of Care Document ---
Author Organization [facility] Address [address] [place] [address] Phone Care Team Providers Care Bd Special Education Teacher Name Role Phone Walt Coleman MD Unavailable [...] X-ray exam both knees, standing 017 Office/outpatient visit,[facility] 2016 Advance Directives Directive Yes / No Effective Date File Name No Information Encounters Encounter Description Practice Location Reason(s) For Visit Diagnoses Date Provider Providers Copied on Encounter [facility], [address] [place] [address], [id number], [place] tel:[phone] [facility] No Information 8 Virginia Godoy. [address] [place] [address], [place] [address], [place], [place], [id number] , [place]. tel: [phone] [facility], [address] [place] [address], [id number], tel:[phone] [facility] Left knee (chief complaint) Presence of left artificial knee joint Apr-0 8 Virginia Godoy. [address] [facility], [address], [id number] , [place]. tel: [phone] [facility], [address], [id number], [place] tel:[phone] [facility] Left knee (chief complaint) Presence of left artificial knee joint 8 Virginia Godoy. [address] [facility], [address], [id number] , [place]. tel: [phone] [facility], [address], [id number], [place] [phone] [facility] Unilateral primary osteoarthritis, left knee 7 Virginia Godoy. [address], [id number] , [place]. tel: [phone] Office/[place]pat [place] [facility] [place] [facility], [address], [id number], [place] [phone] [facility] Left knee (chief complaint) Pain in left kneePain in right kneeUnilateral primary osteoarthritis, left knee 7 Virginia Godoy. [address] [facility], [address], [id number] , [place]. tel: [phone] Family History Family Member Type Diagnosis Age At Onset Mother Problem (finding) hypertension Mother Problem (finding) diabetes melli tus in first degree relative Cousin Problem (finding) stroke Father Problem (finding) congenital heart diseas e Cousin Problem (finding) Cancer, unknown Cousin Problem (finding) Renal disease Father Problem (finding) hypertension Mother Problem (finding) Arthritis Payers Payer name Insurance type Covered green [...]
--- OUTSIDE RECORDS SUMMARY | 2024-07-19 13:54 | XMS_ITS | Continuity of Care Document ---
Author Name [facility] Organization [facility] Care Team Providers Care Loss Prevention Supervisor Name Role Phone [facility] Unavailable Unavailable Problems Combined list of problems from Department of Defense and Veterans Affairs facilities. It does not include entries that were removed or entered in error. Problem Status Onset Date Problem Type Date of Resolution Comments Source Arthritis Active Condition May 27 Entered By: ROSETTE DAY Comment: right foot, ankle, left knee and lower back [facility] Benign essential hypertension Active Condition [facility] Cannabis abuse Active Condition [facility] Degenerative disc disease Active Condition [facility] Depression Active Condition [facility] Dropfoot Active Condition May 27 Entered By: ROSETTE DAY Comment: rt sided. [facility] Erectile dysfunction Active Condition [facility] Incontinence Active Condition [facility] Inflamed seborrhoeic keratosis Active Condition [facility] Long-term current use of drug therapy Active Condition [facility] Multiple sclerosis (MS) relapsing remitting Active Condition May 28, 2015 Entered By: ROSETTE DAY Comment: dx 02/2014 [facility] Peripheral neuropathy Active Condition [facility] Recurrent falls Active Condition [facility] Renal stone Active Condition May 28, 2015 Entered By: ROSETTE DAY Comment: dx 05/13/2015 [facility] Tobacco use Active Condition May 28, 2015 Entered By: ROSETTE DAY Comment: 1.5 ppd x 30 yrs. [facility] Vitamin D deficiency Active Condition [facility] Diagnosis: ICD-10-CM F33.9 Major depressive disorder, recurrent, unspecified Active Diagnosis [facility] Diagnosis: ICD-10-CM G35 Multiple sclerosis Active Diagnosis [facility] Diagnosis: ICD-10-CM Z12.2 Encntr screen for malignant neoplasm of respiratory organs Active Diagnosis [facility] Diagnosis: ICD-10-CM Z51.11 Encounter for antineoplastic chemotherapy Active Diagnosis [facility] Medications Combined list of outpatient medications [...] THREE TIMES A DAY ORAL ACTIVE 01/14/2025 [id number] BEAU WHALEN 2023 270 [facility] BUPROPION HCL 150MG 24HR TAB,SA TAKE THREE TABLETS BY MOUTH ONCE A DAY SWALLOW WHOLE - DO NOT CRUSH OR CHEW. ORAL ACTIVE 03/21/2025 [id number] VIVIAN ABDI 2024 270 [facility] BUPROPION HCL 150MG 24HR TAB,SA TAKE TWO TABLETS BY MOUTH EVERY MORNING AND TAKE ONE TABLET EVERY EVENING FOR DEPRESSI ON SWALLOW WHOLE - DO NOT CRUSH OR CHEW. ORAL 03/13/2024 [id number] 4 RICHARD BONNER JR 2023 270 [facility] CYANOCOBALA MIN 500MCG TAB TAKE ONE TABLET BY MOUTH ONCE A DAY ORAL ACTIVE DELMA DAY 2015 [facility] DULOXETINE HCL 30MG CAP,EC TAKE ONE CAPSULE BY MOUTH ONCE A DAY FOR DEPRESSI ON DO NOT ABRUPTLY DISCONTI NUE MEDICATI ON. ORAL ACTIVE 06/17/2025 [id number] 5 VIVIAN ABDI 2024 90 [facility] DULOXETINE HCL 30MG CAP,EC TAKE THREE CAPSULES BY MOUTH ONCE A DAY FOR DEPRESSI ON DO NOT ABRUPTLY DISCONTI NUE MEDICATI ON. ORAL 03/13/2024 [id number] RICHARD BONNER JR 2023 270 [facility] DULOXETINE HCL 60MG CAP,EC TAKE ONE CAPSULE BY MOUTH ONCE A DAY DO NOT ABRUPTLY DISCONTI NUE MEDICATI ON. ORAL DISCONT INUED (EDIT) 03/21/2025 [id number] BK ABDIA DASHA 2024 90 [facility] HYDROCHLORO THIAZIDE 25MG TAB TAKE ONE TABLET BY MOUTH ONCE A DAY FOR BLOOD PRESSURE ORAL ACTIVE 03/04/2025 [id number] DELMA DAY 2024 90 [facility] HYDROCHLORO THIAZIDE 25MG TAB TAKE ONE TABLET BY MOUTH ONCE A DAY FOR BLOOD PRESSURE ORAL DISCONT INUED 12/26/2023 [id number] 4 DELMA DAY 2022 90 [facility] LORAZEPAM 0.5MG TAB TAKE ONE TABLET BY MOUTH EVERY MONTH NEEDED ORAL ACTIVE VIVIAN ABDI 2024 [facility] LOSARTAN 50MG TAB TAKE ONE-HALF TABLET BY MOUTH ONCE A DAY TO LOWER BLOOD PRESSURE ORAL DISCONT INUED (EDIT) 01/27/2024 [id number] DELMA DAY 2022 45 [facility] [place]ARTAN POTASSIUM 100MG TAB TAKE ONE-HALF TABLET BY MOUTH ONCE A DAY TO LOWER BLOOD PRESSURE ORAL ACTIVE 09/28/2024 [id number] DELMA DAY 2023 45 [facility] MODAFINIL 200MG TAB TAKE ONE-HALF TABLET BY MOUTH TWICE A DAY FOR DAYTIME SLEEPINE SS ORAL ACTIVE 10/03/2024 [id number] 5 DELMA DAY 2024 30 [facility] MODAFINIL 200MG TAB TAKE ONE-HALF TABLET BY MOUTH TWICE A DAY FOR DAYTIME SLEEPINE SS ORAL 03/30/2024 [id number] DELMA DAY 2023 30 [facility] MODAFINIL 200MG TAB TAKE ONE-HALF TABLET BY MOUTH TWICE A DAY FOR DAYTIME SLEEPINE SS ORAL 09/13/2023 [id number] RICHARD BONNER 2023 30 [facility] Immunizations Combined list of available immunizations from the Department of Defense and Veterans Affairs facilities. Immunization Series Date Given Administered By Site Reaction Lot Number CVX Code Drug Manager Business Operations Status Comments Source INFLUENZA, INJECTABLE, QUADRIVALENT, PRESERVATIVE FREE 2018 150 complet ed [facility] PNEUMOCOCCAL POLYSACCHARID E PPV23 2016 33 complet ed [facility] TDAP 2016 115 complet ed Right Deltoid [facility] INFLUENZA, INJECTABLE, QUADRIVALENT, PRESERVATIVE FREE 2016 150 complet ed [facility] PNEUMOCOCCAL CONJUGATE PCV 13 2015 133 complet ed [facility] INFLUENZA, UNSPECIFIED FORMULATION 2014 88 complet ed [facility] Results Combined list of recent chemistry, hematology and other laboratory results from Department of [facility] and Veterans Affairs, ranging from 15 months to all on record, depending upon the facility. Order Name Results Value Reference Range Date Interpretation Specimen Comments Source [id number] HEMOGLOBIN A1C/HEMOGLO BIN.TOTAL IN BLOOD 5.5 4.0 - 6.0 04/23 Specimen Type: BLOOD No comment entered. Ordering Provider: Amari DAY Report Released Date/Time: Apr 23, 2024 10:16 AM Reporting Lab: [facility] [address] [facility] [address] Performing Lab: [facility] [address] [facility] [address] [facility] LIPID PANEL (STL) CHOLESTEROL [MASS/VOLUM E] IN SERUM OR PLASMA 235 mg/dL 0 - 200 04/23 H Specimen Type: PLASMA No comment entered. Ordering Provider: Amari DAY Report Released Date/Time: Apr 23, 2024 10:16 AM Reporting Lab: [address] [address] Performing Lab: [address] [address] [facility] LIPID PANEL (STL) TRIGLYCERID E [MASS/VOLUM E] IN SERUM OR PLASMA 246 mg/dL 0 - 150 04/23 H Specimen Type: PLASMA No comment entered. Ordering Provider: Amari DAY Report Released Date/Time: Apr 23, 2024 10:16 AM Reporting Lab: [address] [address] Performing Lab: [address] [phone] [place] [address] [facility] LIPID PANEL (STL) CHOLESTEROL IN LDL [MASS/VOLUM E] IN SERUM OR PLASMA BY CALCULATION 149 mg/dL 04/23 Specimen Type: PLASMA No comment entered. Ordering Provider: Amari DAY Report Released Date/Time: Apr 23, 2024 10:16 AM Reporting Lab: [address] [address] Performing Lab: [address] [address] [facility] LIPID PANEL (STL) CHOLESTEROL IN HDL [MASS/VOLUM E] IN SERUM OR PLASMA 37 mg/dL 40 04/23 L Specimen Type: PLASMA No comment entered. Ordering Provider: Amari DAY Report Released Date/Time: Apr 23, 2024 10:16 AM Reporting Lab: [address] [address] Performing Lab: [address] [address] [facility] PROST. SPECIFIC AG.(PB-ST L) PROSTATE SPECIFIC [...] Apr 23, 2024 10:16 AM Reporting Lab: [place] [address] Performing Lab: [address] [facility] TSH W/ REFLEX FT4 (STL) THYROTROPIN [UNITS/VOLU ME] IN SERUM OR PLASMA 2.066 u[IU]/ mL 0.47 - 5 04/23 Specimen Type: PLASMA No comment entered. Ordering Provider: Amari DAY Report Released Date/Time: Apr 23, 2024 10:16 AM Reporting Lab: [place] [address] Performing Lab: [address] [facility] VITAMIN D, 25-HYDROX Y 25-HYDROXYV [...] Apr 23, 2024 10:16 AM Reporting Lab: [place] [address] Performing Lab: [address] [facility] CD19, B CELL PANEL CD19 CELLS [#/VOLUME] IN BLOOD 0 {cells }/uL 110 - 660 04/23 L Specimen Type: BLOOD No comment entered. Ordering Provider: JUAN CARLOS WHALEN Report Released Date/Time: Apr 09, 2024 11:41 AM Reporting Lab: [place] [address] Performing Lab: [facility] [id number] [place] [address] [facility] CD19, B CELL PANEL LYMPHOCYTES [#/VOLUME] IN BLOOD BY AUTOMATED COUNT 1274 {cells }/uL 850 - 3900 04/23 Specimen Type: BLOOD No comment entered. Ordering Provider: JUAN CARLOS WHALEN Report Released Date/Time: Apr 09, 2024 11:41 AM Reporting Lab: [address] [address] Performing Lab: [address] [facility] CD19, B CELL PANEL CD19 CELLS/100 CELLS IN BLOOD 0 6 - 29 04/23 L Specimen Type: BLOOD No comment entered. Ordering Provider: JUAN CARLOS WHALEN Report Released Date/Time: Apr 09, 2024 11:41 AM Reporting Lab: [address] [address] Performing Lab: [address] [facility] CBC LEUKOCYTES [#/VOLUME] IN BLOOD BY AUTOMATED COUNT 8.1 10*3/u L 3.6 - 11.2 04/23 Specimen Type: BLOOD No comment entered. Ordering Provider: JUAN CARLOS WHALEN Report Released Date/Time: Apr 09, 2024 11:41 AM Reporting Lab: [address] [address] Performing Lab: [address] [address] [facility] CBC ERYTHROCYTE S [#/VOLUME] IN BLOOD BY AUTOMATED COUNT 5.54 10*6/u L 4.10 - 5.70 04/23 Specimen Type: BLOOD No comment entered. Ordering Provider: JUAN CARLOS WHALEN Report Released Date/Time: Apr 09, 2024 11:41 AM Reporting Lab: [address] [address] Performing Lab: [place] [id number] [facility] CBC HEMOGLOBIN [MASS/VOLUM E] IN BLOOD 16.1 g/dL 13.1 - 16.8 04/23 Specimen Type: BLOOD No comment entered. Ordering Provider: JUAN CARLOS WHALEN Report Released Date/Time: Apr 09, 2024 11:41 AM Reporting Lab: [address] [address] Performing Lab: [address] [address] [facility] CBC HEMATOCRIT [VOLUME FRACTION] OF BLOOD 48.2 38.2 - 48.4 04/23 Specimen Type: BLOOD No comment entered. Ordering Provider: JUAN CARLOS WHALEN Report Released Date/Time: Apr 09, 2024 11:41 AM Reporting Lab: [address] [address] Performing Lab: [address] [address] [facility] CBC MCV [ENTITIC VOLUME] BY AUTOMATED COUNT 87.0 fL 80.0 - 100.0 04/23 Specimen Type: BLOOD No comment entered. Ordering Provider: JUAN CARLOS WHALEN Report Released Date/Time: Apr 09, 2024 11:41 AM Reporting Lab: [address] [address] Performing Lab: [address] [address] [facility] CBC MCH [ENTITIC MASS] BY AUTOMATED COUNT 29.1 pg 27.0 - 34.0 04/23 Specimen Type: BLOOD No comment entered. Ordering Provider: JUAN CARLOS WHALEN Report Released Date/Time: Apr 09, 2024 11:41 AM Reporting Lab: [address] [address] Performing Lab: [address] [address] [facility] CBC MCHC [MASS/VOLUM E] BY AUTOMATED COUNT 33.4 g/dL 33.0 - 36.0 04/23 Specimen Type: BLOOD No comment entered. Ordering Provider: JUAN CARLOS WHALEN Report Released Date/Time: Apr 09, 2024 11:41 AM Reporting Lab: [address] [address] Performing Lab: [address] [address] [facility] CBC PLATELETS [#/VOLUME] IN BLOOD BY AUTOMATED COUNT 341 10*3/u L 150 - 400 04/23 Specimen Type: BLOOD No comment entered. Ordering Provider: JUAN CARLOS WHALEN Report Released Date/Time: Apr 09, 2024 11:41 AM Reporting Lab: [address] [address] Performing Lab: [address] [address] [facility] CBC PLATELET MEAN VOLUME [ENTITIC VOLUME] IN BLOOD BY AUTOMATED COUNT 10.7 fL 7.5 - 11.2 04/23 Specimen Type: BLOOD No comment entered. Ordering Provider: JUAN CARLOS WHALEN Report Released Date/Time: Apr 09, 2024 11:41 AM Reporting Lab: [address] [address] Performing Lab: [address] [address] [facility] CBC ERYTHROCYTE DISTRIBUTIO N WIDTH [RATIO] BY AUTOMATED COUNT 13.5 11.8 - 15.1 04/23 Specimen Type: BLOOD No comment entered. Ordering Provider: JUAN CARLOS WHALEN Report Released Date/Time: Apr 09, 2024 11:41 AM Reporting Lab: [address] [address] Performing Lab: [address] [address] [facility] CBC LYMPHOCYTES /100 LEUKOCYTES IN BLOOD BY AUTOMATED COUNT 17 04/23 Specimen Type: BLOOD No comment entered. Ordering Provider: JUAN CARLOS WHALEN Report Released Date/Time: Apr 09, 2024 11:41 AM Reporting Lab: [facility] [address] [facility] [address] Performing Lab: [facility] [address] [facility] [address] [facility] CBC MONOCYTES/1 00 LEUKOCYTES IN BLOOD BY AUTOMATED COUNT 7 04/23 Specimen Type: BLOOD No comment entered. Ordering Provider: JUAN CARLOS WHALEN Report Released Date/Time: Apr 09, 2024 11:41 AM Reporting Lab: [facility] [address] [facility] [address] Performing Lab: [facility] [address] [facility] [address] [facility] CBC NEUTROPHILS /100 LEUKOCYTES IN BLOOD BY AUTOMATED COUNT 74 04/23 Specimen Type: BLOOD No comment entered. Ordering Provider: JUAN CARLOS WHALEN Report Released Date/Time: Apr 09, 2024 11:41 AM Reporting Lab: [facility] [address] [facility] [address] Performing Lab: [facility] [address] [facility] [address] [facility] CBC EOSINOPHILS /100 LEUKOCYTES IN BLOOD BY AUTOMATED COUNT 1 04/23 Specimen Type: BLOOD No comment entered. Ordering Provider: JUAN CARLOS WHALEN Report Released Date/Time: Apr 09, 2024 11:41 AM Reporting Lab: [facility] [address] [facility] [address] Performing Lab: [facility] [address] [facility] [address] [facility] CBC BASOPHILS/1 00 LEUKOCYTES IN BLOOD BY AUTOMATED COUNT 1 04/23 Specimen Type: BLOOD No comment entered. Ordering Provider: JUAN CARLOS WHALEN Report Released Date/Time: Apr 09, 2024 11:41 AM Reporting Lab: [address] [address] Performing Lab: [address] [address] [facility] CBC LYMPHOCYTES [#/VOLUME] IN BLOOD BY AUTOMATED COUNT 1.35 10*3/u L 0.77 - 4.50 04/23 Specimen Type: BLOOD No comment entered. Ordering Provider: JUAN CARLOS WHALEN Report Released Date/Time: Apr 09, 2024 11:41 AM Reporting Lab: [address] [address] Performing Lab: [address] [address] [facility] CBC MONOCYTES [#/VOLUME] IN BLOOD BY AUTOMATED COUNT 0.58 10*3/u L 0.19 - 0.80 04/23 Specimen Type: BLOOD No comment entered. Ordering Provider: JUAN CARLOS WHALEN Report Released Date/Time: Apr 09, 2024 11:41 AM Reporting Lab: [address] [address] Performing Lab: [address] [address] [facility] CBC NEUTROPHILS [#/VOLUME] IN BLOOD BY AUTOMATED COUNT 5.97 10*3/u L 2.10 - 8.00 04/23 Specimen Type: BLOOD No comment entered. Ordering Provider: JUAN CARLOS WHALEN Report Released Date/Time: Apr 09, 2024 11:41 AM Reporting Lab: [address] [address] Performing Lab: [address] [address] [facility] CBC EOSINOPHILS [#/VOLUME] IN BLOOD BY AUTOMATED COUNT 0.10 10*3/u L 0.00 - 0.60 04/23 Specimen Type: BLOOD No comment entered. Ordering Provider: JUAN CARLOS WHALEN Report Released Date/Time: Apr 09, 2024 11:41 AM Reporting Lab: [place] [address] [facility] [address] Performing Lab: [place] [address] [facility] [address] [facility] CBC BASOPHILS [#/VOLUME] IN BLOOD BY AUTOMATED COUNT 0.06 10*3/u L 0.00 - 0.20 04/23 Specimen Type: BLOOD No comment entered. Ordering Provider: JUAN CARLOS WHALEN Report Released Date/Time: Apr 09, 2024 11:41 AM Reporting Lab: [place] [address] [facility] [address] Performing Lab: [place] [address] [facility] [address] [facility] COMPREHEN SIVE METABOLIC PANEL CREATININE [MASS/VOLUM E] IN SERUM OR PLASMA 0.91 mg/dL 0.7 - 1.3 04/23 Specimen Type: PLASMA Comment: No hemolysis noted. Ordering Provider: JUAN CARLOS WHALEN Report Released Date/Time: Apr 09, 2024 11:41 AM Reporting Lab: [place] [address] [facility] [address] Performing Lab: [place] [address] [facility] [address] [facility] COMPREHEN SIVE METABOLIC PANEL UREA NITROGEN [MASS/VOLUM E] IN SERUM OR PLASMA 13.5 mg/dL 9.0 - 25.0 04/23 Specimen Type: PLASMA Comment: No hemolysis noted. Ordering Provider: JUAN CARLOS WHALEN Report Released Date/Time: Apr 09, 2024 11:41 AM Reporting Lab: [place] [address] [facility] [address] Performing Lab: [place] [address] [facility] [address] [facility] COMPREHEN SIVE METABOLIC PANEL GLUCOSE [MASS/VOLUM E] IN SERUM OR PLASMA 101 mg/dL 72 - 99 04/23 H Specimen Type: PLASMA Comment: No hemolysis noted. Ordering Provider: JUAN CARLOS WHALEN Report Released Date/Time: Apr 09, 2024 11:41 AM Reporting Lab: [place] [address] [facility] [address] Performing Lab: [facility] [address] [facility] [address] [facility] COMPREHEN SIVE METABOLIC PANEL SODIUM [MOLES/VOLU ME] IN SERUM OR PLASMA 142 meq/L 136 - 145 04/23 Specimen Type: PLASMA Comment: No hemolysis noted. Ordering Provider: JUAN CARLOS WHALEN Report Released Date/Time: Apr 09, 2024 11:41 AM Reporting Lab: [address] [address] Performing Lab: [address] [address] [facility] COMPREHEN SIVE METABOLIC PANEL POTASSIUM [MOLES/VOLU ME] IN SERUM OR PLASMA 4.1 meq/L 3.5 - 5 04/23 Specimen Type: PLASMA Comment: No hemolysis noted. Ordering Provider: JUAN CARLOS WHALEN Report Released Date/Time: Apr 09, 2024 11:41 AM Reporting Lab: [place] [address] [facility] [address] Performing Lab: [place] [address] [facility] [address] [facility] COMPREHEN SIVE METABOLIC PANEL CHLORIDE [MOLES/VOLU ME] IN SERUM OR PLASMA 105 meq/L 98 - 107 04/23 Specimen Type: PLASMA Comment: No hemolysis noted. Ordering Provider: JUAN CARLOS WHALEN Report Released Date/Time: Apr 09, 2024 11:41 AM Reporting Lab: [address] [address] Performing Lab: [address] [address] [facility] COMPREHEN SIVE METABOLIC PANEL CARBON DIOXIDE, TOTAL [MOLES/VOLU ME] IN SERUM OR PLASMA 25 meq/L 22 - 31 04/23 Specimen Type: PLASMA Comment: No hemolysis noted. Ordering Provider: JUAN CARLOS WHALEN Report Released Date/Time: Apr 09, 2024 11:41 AM Reporting Lab: [address] [address] Performing Lab: [place] [address] [facility] [address] [facility] COMPREHEN SIVE METABOLIC PANEL CALCIUM [MASS/VOLUM E] IN SERUM OR PLASMA 9.4 mg/dL 8.4 - 10.4 04/23 Specimen Type: PLASMA Comment: No hemolysis noted. Ordering Provider: JUAN CARLOS WHALEN Report Released Date/Time: Apr 09, 2024 11:41 AM Reporting Lab: [place] [address] [facility] [address] Performing Lab: [address] [address] [facility] COMPREHEN SIVE METABOLIC PANEL PROTEIN [MASS/VOLUM E] IN SERUM OR PLASMA 7.3 g/dL 6 - 8.6 04/23 Specimen Type: PLASMA Comment: No hemolysis noted. Ordering Provider: JUAN CARLOS WHALEN Report Released Date/Time: Apr 09, 2024 11:41 AM Reporting Lab: [place] [address] [facility] [address] Performing Lab: [address] [address] [facility] COMPREHEN SIVE METABOLIC PANEL ALBUMIN [MASS/VOLUM E] IN SERUM OR PLASMA 4.4 g/dL 3.4 - 5 04/23 Specimen Type: PLASMA Comment: No hemolysis noted. Ordering Provider: JUAN CARLOS WHALEN Report Released Date/Time: Apr 09, 2024 11:41 AM Reporting Lab: [address] [address] Performing Lab: [address] [address] [facility] COMPREHEN SIVE METABOLIC PANEL BILIRUBIN.T OTAL [MASS/VOLUM E] IN SERUM OR PLASMA 0.4 mg/dL 0.2 - 1.2 04/23 Specimen Type: PLASMA Comment: No hemolysis noted. Ordering Provider: JUAN CARLOS WHALEN Report Released Date/Time: Apr 09, 2024 11:41 AM Reporting Lab: [place] [address] [address] [address] Performing Lab: [place] [address] [facility] [address] [facility] COMPREHEN SIVE METABOLIC PANEL ALKALINE PHOSPHATASE [ENZYMATIC ACTIVITY/VO LUME] IN SERUM OR PLASMA 101 U/L 40 - 150 04/23 Specimen Type: PLASMA Comment: No hemolysis noted. Ordering Provider: JUAN CARLOS WHALEN Report Released Date/Time: Apr 09, 2024 11:41 AM Reporting Lab: [place] [address] [facility] [address] Performing Lab: [place] [address] [address] [address] [facility] COMPREH SIVE METABOLIC PANEL ASPARTATE AMINOTRANSF ERASE [ENZYMATIC ACTIVITY/VO LUME] IN SERUM OR PLASMA 29 U/L 5 - 34 04/23 Specimen Type: PLASMA Comment: No hemolysis noted. Ordering Provider: JUAN CARLOS WHALEN Report Released Date/Time: Apr 09, 2024 11:41 AM Reporting Lab: [place] [address] [facility] [address] Performing Lab: [place] [address] [facility] [address] [facility] COMPREHEN SIVE METABOLIC PANEL ALANINE AMINOTRANSF ERASE [ENZYMATIC ACTIVITY/VO LUME] IN SERUM OR PLASMA 26 U/L 8 - 40 04/23 Specimen Type: PLASMA Comment: No hemolysis noted. Ordering Provider: JUAN CARLOS WHALEN Report Released Date/Time: Apr 09, 2024 11:41 AM Reporting Lab: [place] [address] [facility] [address] Performing Lab: [place] [address] [facility] [address] [facility] COMPREHEN SIVE METABOLIC PANEL GLOMERULAR FILTRATION RATE/1.73 SQ M.PREDICTED [VOLUME RATE/AREA] IN SERUM, PLASMA OR BLOOD BY CREATININE- BASED FORMULA (CKD-EPI 2020) 97.1 60 04/23 Specimen Type: PLASMA Comment: No hemolysis noted. Ordering Provider: JUAN CARLOS WHALEN Report Released Date/Time: Apr 09, 2024 11:41 AM Reporting Lab: [address] [address] Performing Lab: [address] [address] [facility] IGG (STL) IGG [MASS/VOLUM E] IN SERUM OR PLASMA 767 mg/dL 540 - 1822 04/23 Specimen Type: PLASMA Comment: No hemolysis noted. Ordering Provider: JUAN CARLOS WHALEN Report Released Date/Time: Apr 09, 2024 11:41 AM Reporting Lab: [place] [address] [facility] [address] Performing Lab: [address] [address] [facility] IGG (STL) IGG [MASS/VOLUM E] IN SERUM OR PLASMA 772 mg/dL 540 - 1822 11/04 Specimen Type: PLASMA No comment entered. Ordering Provider: JUAN CARLOS WHALEN Report Released Date/Time: Nov 05, 2023 11:25 AM Reporting Lab: [address] [id number] Performing Lab: [address] [address] [facility] Vital Signs Combined list of inpatient and outpatient Vital Signs from Department of Defense and [employer] Affairs, ranging from 12 months to all on record, depending upon the facility. Vital Sign Value Date Comments Source SYSTOLIC BLOOD PRESSURE 145 05/05/2024 11:15:00 [facility] DIASTOLIC BLOOD PRESSURE 95 05/05/2024 11:15:00 [facility] PULSE OXIMETRY 97 05/05/2024 11:15:00 [facility] TEMPERATURE 97.9 05/05/2024 11:15:00 [facility] PULSE 74 05/05/2024 11:15:00 [facility] RESPIRATION 18 05/05/2024 11:15:00 [facility] SYSTOLIC BLOOD PRESSURE 138 04/23/2024 10:06:44 [facility] DIASTOLIC BLOOD PRESSURE 93 04/23/2024 10:06:44 [facility] PULSE OXIMETRY 96 04/23/2024 10:06:44 [facility] WEIGHT 258 04/23/2024 10:06:44 [facility] BMI 36 kg/m2 04/23/2024 10:06:44 [facility] PAIN 6 04/23/2024 10:06:44 [facility] TEMPERATURE 98.1 04/23/2024 10:06:44 [facility] PULSE 66 04/23/2024 10:06:44 [facility] RESPIRATION 20 04/23/2024 10:06:44 [facility] SYSTOLIC BLOOD PRESSURE 138 11/05/2023 12:23:23 [facility] DIASTOLIC BLOOD PRESSURE 89 11/05/2023 12:23:23 [facility] PULSE OXIMETRY 97 11/05/2023 12:23:23 [facility] TEMPERATURE 97.8 11/05/2023 12:23:23 [facility] PULSE 87 11/05/2023 12:23:23 [facility] RESPIRATION 20 11/05/2023 12:23:23 [facility] SYSTOLIC BLOOD PRESSURE 155 09/28/2023 14:09:41 [facility] DIASTOLIC BLOOD PRESSURE 101 09/28/2023 14:09:41 [facility] PULSE OXIMETRY 96 09/28/2023 14:09:41 [facility] WEIGHT 269 09/28/2023 14:09:41 [facility] BMI 38 kg/m2 09/28/2023 14:09:41 [facility] PAIN 0 09/28/2023 14:09:41 [facility] TEMPERATURE 97.8 09/28/2023 14:09:41 [facility] PULSE 97 09/28/2023 14:09:41 [facility] RESPIRATION 20 09/28/2023 14:09:41 [facility] Encounters Combined list of: 1) Encounters from Department of [facility] facilities going backup to the last 18 months, not all [place] inpatient encounters are included; 2) Encounters from the Department of [facility] facilities going backup to 280 months. Location Location Details Encounter Type Encounter Number Reason For Visit Attending Provider ADM Date DC Date Status Disposition Source [facility] OFFICE O/P EST MOD 30 MIN [id number] Diagnos is: ICD-10- CM F33.9 Major depress porsha disorde r, recurre nt, unspeci fied KAILEY,WILL SNOW M JR 03/13 [facility] Outpatient Encounter [id number] YOLANDA QURESHI 03/13 [facility] N [facility] Outpatient Encounter [id number] 03/23 [facility] N [facility] OFF/OP EST MAY X REQ PHY/QHP [id number] Diagnos is: ICD-10- CM G35 Multipl e scleros is YONATHAN,CY NTHIA A 03/25 [facility] N [facility] Outpatient Encounter [id number] YONATHAN,CY NTHIA A 03/25 [facility] Outpatient Encounter [id number] 03/26 [facility] QNHP OL DIG ASSMT&MGMT - [id number] Diagnos is: ICD-10- CM G35 Multipl e scleros is Dominic DE [place] NNA P 03/30 [facility] Outpatient Encounter [id number] YOLANDA QURESHI 04/03 [facility] HC PRO PHONE CALL 5-10 MIN [id number] Diagnos is: ICD-10- CM G35 Multipl e scleros is JEANNETTE MCMANUS NTHIA A 04/04 [facility] Outpatient Encounter [id number] 04/24 [facility] OFFICE O/P EST HI 40 MIN [id number] Diagnos is: ICD-10- CM G35 Multipl e scleros is JUAN CARLOS WHALEN 04/29 [facility] Outpatient Encounter [id number] 04/29 [facility] THERAPEUTI C ACTIVITIES [id number] Diagnos is: ICD-10- CM G35 Multipl e scleros is HENNY ANDREA 04/29 [facility] CHEMO IV INFUSION 1 HR [id number] [id number] 4 Diagnos is: ICD-10- CM Z51.11 Encount er for antineo plastic chemoth FERNANDO Monsivais Amari 04/29 [facility] Outpatient Encounter [id number] 06/14 [facility] Outpatient Encounter [id number] HOMER HUGHES E 08/02 [facility] Outpatient Encounter [id number] 08/02 [facility] Outpatient Encounter [id number] YONATHAN,CY NTHIA A 08/26 [facility] Outpatient Encounter [id number] 1 09/27 [facility] OFFICE O/P EST MOD 30 MIN [id number] Diagnos is: ICD-10- CM F33.9 Major depress porsha disorde r, recurre nt, unspeci fied DELMA DAY 09/27 [facility] Outpatient Encounter [id number] 1 YONATHAN,CY NTHIA A 10/09 [facility] HC PRO PHONE CALL 11-20 MIN [id number] [id number] Diagnos is: ICD-10- CM G35 Multipl e scleros is YONATHAN,CY NTHIA A 10/17 [facility] HC PRO PHONE CALL 5-10 MIN [id number] [id number] Diagnos is: ICD-10- CM G35 Multipl e scleros is Urvashi DUARTE S 10/18 [facility] Outpatient Encounter [id number] JEANNETTE MCMANUS NTHIA A 10/28 [facility] OFFICE O/P EST HI 40 MIN [id number] 1 Diagnos is: ICD-10- CM G35 Multipl e scleros is JUAN CARLOS WHALEN 11/04 [facility] ORAL PRESCRIP DRUG NON CHEMO [id number] [id number] Diagnos is: ICD-10- CM Z51.11 Encount er for antineo plastic chemoth SASKIA Hooks 11/04 [facility] HC PRO PHONE CALL 5-10 MIN [id number] 1 Diagnos is: ICD-10- CM G35 Multipl e scleros is JEANNETTE MCMANUS NTHIA A 01/08 [facility] Outpatient Encounter [id number] 1 JEANNETTE MCMANUS NTHIA A 01/08 [facility] Outpatient Encounter [id number] 3 02/19 [facility] SYNCH AUDIO-ONLY EST HIGH 40 [id number] Diagnos is: ICD-10- CM F33.9 Major depress porsha disorde r, recurre nt, unspeci fied VIVIAN ABDI 03/20 [facility] Outpatient Encounter [id number] 03/21 [facility] Outpatient Encounter [id number] Sarah SANCHES R 04/03 [facility] Outpatient Encounter [id number] 04/09 [facility] PH1 ASSMT&MGMT NQHP 11-20 [id number] [id number] Diagnos is: ICD-10- CM G35 Multipl e scleros is YONATHAN,CY NTHIA A 04/09 [facility] Outpatient Encounter [id number]. [id number] YONATHAN,CY NTHIA A 04/09 [facility] NQHP OL DIG ASSMT&MGMT - [id number] [id number] Diagnos is: ICD-10- CM G35 Multipl e scleros is Dominic DE [place] NNA P 04/14 [facility] Outpatient Encounter [id number] Sarah SANCHES R 04/18 [facility] OFFICE O/P EST MOD 30 MIN [id number] Diagnos is: ICD-10- CM F33.9 Major depress porsha disorde r, recurre nt, unspeci fied DELMA DAY 04/23 [facility] Outpatient Encounter [id number] 1 04/23 [facility] NQHP OL DIG ASSMT&MGMT 5-10 [id number] Diagnos is: ICD-10- CM G35 Multipl e scleros is Yoselin MELO 05/01 [facility] DIPHENHYDR AMINE HCL 50MG [id number] 1 Diagnos is: ICD-10- CM Z51.11 Encount er for antineo plastic chemoth JESSICA Morales F 05/05 [facility] Outpatient Encounter [id number] 05/05 [facility] OFFICE O/P EST HI 40 MIN [id number] Diagnos is: ICD-10- CM G35 Multipl e scleros is KOBYJUAN CARLOS 05/05 [facility] OFF/OP CONSLTJ NEW/EST SF 20 [id number] [id number] 5 Diagnos is: ICD-10- CM Z12.2 Encntr screen for maligna nt neoplas m of respira tory organs ЮЛИЯ GALINDO A 05/06 [facility] Outpatient Encounter [id number] 05/16 [facility] Outpatient Encounter [id number] 05/17 [facility] Outpatient Encounter [id number] 3 Diagnos is: ICD-10- CM Z12.2 Encntr screen for maligna nt neoplas m of respira tory organs BRITTNI WHITT 05/19 [facility] N [facility] Outpatient Encounter [id number] 3 YONATHAN,CY NTHIA A 05/22 [facility] N [facility] Outpatient Encounter [id number] 3 05/23 [facility] NQHP OL DIG ASSMT&MGMT 01-01 [id number] 3 Diagnos is: ICD-10- CM G35 Multipl e scleros is YONATHAN,CY NTHIA A 06/05 [facility] N [facility] Outpatient Encounter [id number] 3 YONATHAN,CY NTHIA A 06/05 [facility] N [facility] OFFICE O/P EST MOD 30 MIN [id number] Diagnos is: ICD-10- CM F33.9 Major depress porsha disorde r, recurre nt, unspeci fied VIVIAN ABDI 06/16 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 Social History Type Response Date Comment Sourc e Tobacco smoking status NHIS [place]-TOBACCO USE EVERY DAY CIGARETTES 03/20/2024 [facility] History of tobacco use [place] NEVER USED OTHER TYPE 03/20/2024 [facility] History of tobacco use [place]-TOBACCO USER EVERY DAY 03/13/2023 [facility] History of tobacco use VA-TOBACCO USER EVERY DAY 12/02/2019 [facility] History of tobacco use [place]-TOBACCO USE MEDIA SERVICES COORDINATOR NO 06/03/2018 [facility] History of tobacco use TOBACCO USER OFFERED MEDS 08/16/2017 [facility] History of tobacco use TOBACCO REFUSED SCREEN V15 12/21/2016 [facility] History of tobacco use CURRENT TOBACCO USER 06/05/2016 [facility] History of tobacco use TOBACCO OFFERED STOP SMOKING CLINIC 02/02/2016 [facility] History of tobacco use CURRENT TOBACCO USER 05/28/2015 [facility] Plan of Care List of future care activities from Department of [facility] Affairs facilities. Additional future care activities may be listed in the Assessment and Plan section. Date/Time Care Activity Care Activity Detail Facili ty 09/15/2024 AMBULATORY - PSYCHIATRY AMBULATORY - PSYC HIATRY [facility]
[2024-07-19 14:16] VITALS: BP 142/85; PULSE 85; RESP 16; TEMP 36.6; O2SAT 98
== END 2024-07-19 14:16 | disposition home or self-care (01) ==
PROVIDERS: Emergency Provider Internal Medicine Critical Care Medicine
DX: M25.532 Pain in left wrist (principal); I10 Essential (primary) hypertension; G35 Multiple sclerosis; F17.210 Nicotine dependence, cigarettes, uncomplicated; W19.XXXA Unspecified fall, initial encounter
CPT/HCPCS: 73090; 73110; 99283